=== PATIENT | female | born 1940 | race Caucasian/White ===

== ENCOUNTER → 2016-08-03 | Outpatient (REF) | payer OTHER ==
[~2016-08-03] MED LIST: /CIPR75TA; ACYC5OIN TOP; ALLE25CA OR; AMOX875T2 PO; CEFD300CAP PO; CIPR-250 PO; COLA100C2; COLA100C2 OR; ENAL5TAB PO; FERR32TA PO; GABA-282 PO; GABA-283 PO; GABA600T PO; INSUHUMDS SC; KETO-28 OR; LOVE1INJ SC; Lovenox; METF500T PO; MILKSUS PO; MIRALEX OR; NAPR500T2 PO; NEUR600T OR; NITR0.4S SL; NORCOTAB PO; NORV5TAB OR; OXYB10TA PO; OXYC-299 PO; PANT40TA2 PO; PARO20TA3 PO; PARO40TA87 PO; PERC5TAB8; PERC7.5T3 PO; PERCOCET PO; PRIL20CA OR; PRIL40CA OR; RISATAB3 PO; SENN-23 PO; SENN1TAB2 PO; TRAM50TA2 OR; TRAM50TA2 PO; TRAZ150T14 PO; VICO5TAB; VITA-130 PO; XARE15TA PO; XARE20TA PO; ZOFR8TAB PO; lovenox; trazodone PO
[2016-08-03 19:00] LABS: TOTAL PROTEIN 6.9 GM/DL (6.4-8.2)
[2016-08-03 19:25] LABS: VITAMIN B12 LEVEL 266 PG/ML (247-911)
[2016-08-04 12:28] LABS: ALBUMIN 4.42 GM/DL (3.29-5.55)
== END ==
LOC: M LAB REF 16:56
PROVIDERS: ATTEND Nurse Practitioner Adult Health
DX: D64.9 Anemia, unspecified (principal); D47.2 Monoclonal gammopathy; R41.3 Other amnesia; Z79.899 Other long term (current) drug therapy

== ENCOUNTER → 2016-08-25 | Outpatient (REF) | payer OTHER ==
[2016-08-25 14:19] LABS: IMMUNOGLOBULIN A 57.8 MG/DL (70-400)
[2016-08-27 00:06] LABS: FREE KAPPA LIGHT CHAINS SERUM 29.72 mg/L (3.30-19.40); FREE LAMBDA LIGHT CHAINS SERUM 35.46 mg/L (5.71-26.30); KAPPA/LAMBDA RATIO SERUM 0.84 (0.26-1.65)
== END ==
LOC: M LAB REF 13:33
PROVIDERS: ATTEND Internal Medicine Medical Oncology
DX: D47.2 Monoclonal gammopathy (principal)

== ENCOUNTER 2016-10-13 22:58 | Emergency (ER) | payer OTHER ==
[~2016-10-13] VITALS: Ht 167.6 cm; Wt 90.9 kg
[~2016-10-13 22:58] MED LIST changes: -METF500T PO; +METF500T13 PO; -NAPR500T2 PO; +NAPR500T3 PO; +OXYC-141 PO; -OXYC-299 PO; +PARO40TA3 PO; -PARO40TA87 PO; +PERC7.5T11 PO; -PERC7.5T3 PO; -TRAZ150T14 PO; +TRAZ1TAB14 PO; -VITA-130 PO; +VITA500T PO
[2016-10-13] MEDS ORDERED: OXYB10TA PO (23:20)
[2016-10-13 23:45] LABS: BASO % 0.5 % (0.0-1.0); EOS # 0.3 K/mm3 (0.0-0.50); EOS % 3.6 % (0.0-3.0); LARGE UNSTAINED CELL # 0.1 K/mm3 (0.0-0.4); LYMPH # 2.1 K/mm3 (1.5-4.5); LYMPH % 26.1 % (24.0-44.0); MEAN CORPUSCULAR HEMOGLOBIN 30.9 pg (27.0-33.0); MEAN CORPUSCULAR HGB CONC 33.9 g/dl (32.0-36.5); MEAN CORPUSCULAR VOLUME 91.3 fl (80.0-96.0); MONO # 0.5 K/mm3 (0.0-0.8); MONO % 6.1 % (0.0-5.0); NEUTROPHILS # 4.8 K/mm3 (1.8-7.7); NEUTROPHILS % 62.7 % (36.0-66.0); PLATELET COUNT, AUTOMATED 266 k/mm3 (150-450); RED CELL DISTRIBUTION WIDTH 12.7 % (11.5-14.5); WHITE BLOOD COUNT 7.6 K/mm3 (4.0-10.0)
[2016-10-13 23:51] LABS: INR 0.91
[2016-10-14 00:08] LABS: ANION GAP 5 MEQ/L (8-16); BLOOD UREA NITROGEN 22 MG/DL (7-18); CALCIUM LEVEL 9.6 MG/DL (8.8-10.2); CARBON DIOXIDE LEVEL 31 MEQ/L (21-32); CHLORIDE LEVEL 102 MEQ/L (98-107); CREATININE FOR GFR 1.28 MG/DL (0.55-1.02); FREE T4 1.22 NG/DL (0.76-1.46); GLOMERULAR FILTRATION RATE 43.4 (>39); GLUCOSE, FASTING 105 MG/DL (83-110); SODIUM LEVEL 138 MEQ/L (136-145)
--- NOTE | 2016-10-14 00:10 | REPUSA ---
CT of the cervical spine Clinical history: trauma. Technique: Multiple axial CT images were obtained through the cervical spine without administration o f contrast. Coronal and sagittal 3-D reconstructed images were also obtained. Comparison: None. Findings: The cervical vertebral bodies are in satisfactory positioning and alignment. No fractures or dislocat ions are demonstrated. The odontoid process is intact. Intervertebral disc spaces are moderately narr owed at C4/C5, C5/C6, C6/C7,, and C7/T1. There is a large disc bulge noted at C5/C6. This causes mode rate central canal stenosis measuring 8 mm in AP diameter, with moderate narrowing of the left neural foramen.. There is moderate narrowing of the right neural foramen at C7/T1 secondary to a disc osteo phyte complex. There is no evidence of facet subluxation. The cervical cranial junction is intact. Th e surrounding soft tissues are within normal limits. Impression: 1. No acute fracture or traumatic injury. 2. Multilevel degenerative disc disease and disc osteophyte complexes as described. 3. The disc bulge at C5/C6 results in moderate central canal stenosis and left neural foraminal narro wing. 4. Disc osteophyte complex at C7/T1 causes moderate right neural foraminal narrowing.
--- NOTE | 2016-10-14 00:10 | REPUSA ---
CT of the head Clinical history: trauma. Technique: Multiple axial CT images were obtained through the head without administration of contrast . Comparison: None. Findings: The ventricles and sulci are symmetric bilaterally. There is no evidence of acute hemorrhag e or infarct. There is no midline shift, mass effect, or extra-axial fluid collection. The osseous st ructures are unremarkable. The visualized paranasal sinuses and mastoid air cells are clear. Impression: Negative study.
--- NOTE | 2016-10-14 00:43 | REP ---
Clinical: Trauma. Technique: Frontal view of the pelvis. Findings: No acute fracture or dislocation. Symmetric age-related arthritic changes to the bilateral hip joints noted. Sacroiliac joints are intact and normal. Surrounding soft tissues are unremarkable. Impression: Degenerative changes to the bilateral hips. No acute fracture or dislocation. Signed by Richard Francisco MD 10/14/2016 12:34 A
[2016-10-14 01:33] VITALS: O2SAT 98
[2016-10-14 02:08] VITALS: BP 136/83
--- NOTE | 2016-10-14 12:17 | ECGEPIP ---
Stationary ECG Study [facility] - ED Test Date: 2016-10-14 Pat Name: MYKE CREWS Department: Room: - Gender: F Tableau Lead: torsten : 1940 Requested By: NATALIE Silva Order Number: [id number] Reading MD: Koko Peraza Measurements Intervals [place] Rate: 68 P: 27 ME: 174 QRS: -6 QRSD: 152 T: -2 QT: 421 QTc: 450 Interpretive Statements SINUS RHYTHM RIGHT BUNDLE BRANCH BLOCK, NEW COMPARED TO 01/22/16 Electronically Signed On 10-14-2016 12:17:16 EDT by Koko Peraza
[2016-11-28] MEDS ORDERED: CHLO125TA PO (10:24)
[2016-11-28] MEDS ORDERED: POTA1TAB23 PO (10:24)
[2016-11-28] MEDS ORDERED: GABA600T PO (10:24)
[2016-11-28] MEDS ORDERED: PANT40TA2 PO (10:24)
== END 2016-10-14 02:09 | disposition home or self-care (01) ==
LOC: M ED 22:58 → EDBD 22:58 → M ED 10-14 00:57
DX: S01.01XA Laceration without foreign body of scalp, initial encounter (principal); W19.XXXA Unspecified fall, initial encounter; Y92.010 Kitchen of single-family (private) house as the place of occurrence of the external cause; Y93.9 Activity, unspecified; Y99.8 Other external cause status; M50.222 Other cervical disc displacement at C5-C6 level; E11.9 Type 2 diabetes mellitus without complications; M48.00 Spinal stenosis, site unspecified; N31.9 Neuromuscular dysfunction of bladder, unspecified; G62.9 Polyneuropathy, unspecified; M79.7 Fibromyalgia; Z89.519 Acquired absence of unspecified leg below knee; Z79.899 Other long term (current) drug therapy; Z88.1 Allergy status to other antibiotic agents; Z88.5 Allergy status to narcotic agent; Z88.8 Allergy status to other drugs, medicaments and biological substances; Z91.040 Latex allergy status; Z91.041 Radiographic dye allergy status; Z88.4 Allergy status to anesthetic agent

== ENCOUNTER 2016-12-08 06:22 | Day surgery (SDC) | payer OTHER ==
[~2016-12-08] VITALS: Ht 165.1 cm; Wt 89.4 kg
[~2016-12-08 06:22] MED LIST changes: +CHLO125TA PO; +POTA1TAB23 PO
[2016-12-08] MEDS ORDERED: LR 1,000 ML IV SCH (06:30)
[2016-12-08] MEDS ORDERED: ACETYLCHOLINE OPHTH SOLN 1% 2ML (MIOCHOL-E) As Ordered ONE (06:38)
[2016-12-08] MEDS ORDERED: POVIDONE-IODINE 5% OPHTH PREP SOL 30ML As Ordered ONE (06:38)
[2016-12-08] MEDS ORDERED: LIDOCAINE 4% INJ 5 ML AMP As Ordered ONE (06:39)
[2016-12-08] MEDS ORDERED: BALANCED SALT IRRIGATION SOLUTION 500ML BAG (FOR OR EYE MACHINE) As Ordered ONE (06:39)
[2016-12-08] MEDS ORDERED: LIDOCAINE 0.75%/EPINEPHRINE 0.025% IN BSS 1ML SYR INTRACAMERAL (OR ONLY) As Ordered ONE (06:39)
[2016-12-08] MEDS ORDERED: CEFUROXIME 1MG/0.1ML INTRACAMERAL INJ As Ordered ONE (06:39)
[2016-12-08] MEDS ORDERED: DUOVISC (0.50ML VISCOAT/0.55ML PROVISC) OPHTH KIT As Ordered ONE (06:40)
[2016-12-08] MEDS ORDERED: VITA100072 PO (06:53)
[2016-12-08] MEDS ORDERED: OFLOXACIN 0.3 % (OCUFLOX) OPTH SOL 5ML XX ONE (07:00)
[2016-12-08] MEDS ORDERED: PHENYLEPHRINE 2.5% OPHTH SOL 2ML XX ONE (07:00)
[2016-12-08] MEDS ORDERED: TROPICAMIDE 1% OPHTH SOLN 2ML XX ONE (07:00)
[2016-12-08] MEDS ORDERED: PROPARACAINE 0.5% OPHTH SOL 15ML XX ONE (07:00)
[2016-12-08] MEDS ORDERED: fentaNYL 100 MCG/2 ML INJECTION (J3010) As Ordered ONE (07:17)
[2016-12-08] MEDS ORDERED: MIDAZOLAM INJ 2 MG/2 ML VIAL (J2250) As Ordered ONE (07:17)
[2016-12-08 08:50] VITALS: BP 122/64
--- NOTE | 2016-12-11 08:41 | RO ---
DATE OF PROCEDURE: 12/08/2016 PREOPERATIVE DIAGNOSIS: Visually significant nuclear sclerotic cataract left eye. POSTOPERATIVE DIAGNOSIS: Visually significant nuclear sclerotic cataract left eye. PROCEDURE: Cataract extraction with use of phacoemulsification, and placement of intraocular lens, 23.5D , left eye. 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 COMPLICATIONS: None. POSTOPERATIVE CONDITION: Stable. INDICATION FOR SURGERY: Blurred vision left eye affecting patient's activities of daily living. DESCRIPTION OF PROCEDURE: The patient was seen in the preoperative area and properly identified. The correct operative eye was identified and marked. Attention was turned to that eye. The patient received topical antibiotics in the preoperative area. The patient then received topical dilating drops consisting of Tropicamide and Phenylephrine. The patient was then transferred to the operating room. The correct side was re-identified. The patient received topical anesthetics and antibiotics on the surface of the eye. The eye was prepped and draped in a sterile fashion. The upper and lower eyelids were isolated with Tegaderm tape, and the lids were held open with an adjustable speculum. Using a sideport blade, a paracentesis incision was made. Intraocular preservative-free lidocaine was then injected into the anterior chamber. Viscoelastic was then injected into the anterior chamber through the paracentesis. Using a 2.6 mm sharp-tipped keratome, the anterior chamber was entered via a temporal clear corneal incision. A continuous curvilinear capsulorrhexis was created with the aid of a 26g cystotome and utrata forceps. Hydrodissection was performed with balanced salt solution (BSS) on a blunt cannula until the nucleus was freely mobile. The crystalline lens was phacoemulsified and aspirated. Additional cohesive viscoelastic was placed into the capsular bag to deepen it. A 23.5 lens D was placed into the capsular bag and confirmed by visualizing the continuous curvilinear capsulorrhexis. Additional irrigation and aspiration was used to remove cortical material and remaining viscoelastic. The clear corneal incision was hydrated with BSS on a blunt cannula. The lens was well positioned. The incisions were then tested for leaks and found to be negative. The eye was then palpated for appropriate pressure and adjusted accordingly with BSS. The eyelid speculum was carefully removed. A shield was placed over the eye. The patient tolerated the procedure well and was discharged to the recovery unit in a stable condition. [facility]ITAL[facility]ad[facility]
== END 2016-12-08 09:04 | disposition home or self-care (01) ==
LOC: M SDC 06:22
PROVIDERS: ATTEND Ophthalmology
DX: H25.12 Age-related nuclear cataract, left eye (principal); E11.9 Type 2 diabetes mellitus without complications; I10 Essential (primary) hypertension; K21.9 Gastro-esophageal reflux disease without esophagitis; Z91.040 Latex allergy status; Z88.5 Allergy status to narcotic agent; Z91.041 Radiographic dye allergy status; Z79.899 Other long term (current) drug therapy; F41.9 Anxiety disorder, unspecified; M41.9 Scoliosis, unspecified
CPT/HCPCS: 66984; J2250; J3010; V2632

== ENCOUNTER 2016-12-22 10:26 | Day surgery (SDC) | payer OTHER ==
[~2016-12-22 10:26] MED LIST changes: +ACETYLCHOLINE OPHTH SOLN 1% 2ML (MIOCHOL-E) As Ordered ONE; +BALANCED SALT IRRIGATION SOLUTION 500ML BAG (FOR OR EYE MACHINE) As Ordered ONE; +CEFUROXIME 1MG/0.1ML INTRACAMERAL INJ As Ordered ONE; +DUOVISC (0.50ML VISCOAT/0.55ML PROVISC) OPHTH KIT As Ordered ONE; +LIDOCAINE 0.75%/EPINEPHRINE 0.025% IN BSS 1ML SYR INTRACAMERAL (OR ONLY) As Ordered ONE; +OFLOXACIN 0.3 % (OCUFLOX) OPTH SOL 5ML OD ONE; +PHENYLEPHRINE 2.5% OPHTH SOL 2ML OD ONE; +POVIDONE-IODINE 5% OPHTH PREP SOL 30ML As Ordered ONE; +PROPARACAINE 0.5% OPHTH SOL 15ML OD ONE; +TROPICAMIDE 1% OPHTH SOLN 2ML OD ONE; +VITA100072 PO
[2016-12-22] MEDS ORDERED: LR 1,000 ML IV SCH (10:45)
[2016-12-22] MEDS ORDERED: MIDAZOLAM INJ 2 MG/2 ML VIAL (J2250) As Ordered ONE (11:49)
[2016-12-22] MEDS ORDERED: fentaNYL 100 MCG/2 ML INJECTION (J3010) As Ordered ONE (12:12)
[2016-12-22 12:45] VITALS: BP 140/67
--- NOTE | 2016-12-23 15:29 | RO ---
DATE OF PROCEDURE: 12/22/2016 PREOPERATIVE DIAGNOSIS: Visually significant nuclear sclerotic cataract right eye. POSTOPERATIVE DIAGNOSIS: Visually significant nuclear sclerotic cataract right eye. PROCEDURE: Cataract extraction with use of phacoemulsification, and placement of intraocular lens, AU00T0, 22.5 D, right eye. 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 COMPLICATIONS: None. POSTOPERATIVE CONDITION: Stable. INDICATION FOR SURGERY: Blurred vision right eye affecting patient's activities of daily living. DESCRIPTION OF PROCEDURE: The patient was seen in the preoperative area and properly identified. The correct operative eye was identified and marked. Attention was turned to that eye. The patient received topical antibiotics in the preoperative area. The patient then received topical dilating drops consisting of Tropicamide and Phenylephrine. The patient was then transferred to the operating room. The correct side was re-identified. The patient received topical anesthetics and antibiotics on the surface of the eye. The eye was prepped and draped in a sterile fashion. The upper and lower eyelids were isolated with Tegaderm tape, and the lids were held open with an adjustable speculum. Using a sideport blade, a paracentesis incision was made. Intraocular preservative-free lidocaine was then injected into the anterior chamber. Viscoelastic was then injected into the anterior chamber through the paracentesis. Using a 2.65 mm sharp-tipped keratome, the anterior chamber was entered via a temporal clear corneal incision. A continuous curvilinear capsulorrhexis was created with the aid of a 26g cystotome and utrata forceps. Hydrodissection was performed with balanced salt solution (BSS) on a blunt cannula until the nucleus was freely mobile. The crystalline lens was phacoemulsified and aspirated. Additional cohesive viscoelastic was placed into the capsular bag to deepen it. An AU00T0, 22.5 D was placed into the capsular bag and confirmed by visualizing the continuous curvilinear capsulorrhexis. Additional irrigation and aspiration was used to remove cortical material and remaining viscoelastic. The clear corneal incision was hydrated with BSS on a blunt cannula. The lens was well positioned. The incisions were then tested for leaks and found to be negative. The eye was then palpated for appropriate pressure and adjusted accordingly with BSS. The eyelid speculum was carefully removed. A shield was placed over the eye. The patient tolerated the procedure well and was discharged to the recovery unit in a stable condition. CLEM
== END 2016-12-22 13:05 | disposition home or self-care (01) ==
LOC: M SDC 10:26
PROVIDERS: ATTEND Ophthalmology
DX: H25.11 Age-related nuclear cataract, right eye (principal); E11.22 Type 2 diabetes mellitus with diabetic chronic kidney disease; I13.0 Hypertensive heart and chronic kidney disease with heart failure and stage 1 through stage 4 chronic kidney disease, or unspecified chronic kidney disease; N18.3 Chronic kidney disease, stage 3 (moderate); I50.32 Chronic diastolic (congestive) heart failure; I45.10 Unspecified right bundle-branch block; G47.33 Obstructive sleep apnea (adult) (pediatric); Z86.711 Personal history of pulmonary embolism; M79.7 Fibromyalgia; E78.2 Mixed hyperlipidemia; E11.319 Type 2 diabetes mellitus with unspecified diabetic retinopathy without macular edema; M48.00 Spinal stenosis, site unspecified; E53.8 Deficiency of other specified B group vitamins; R42 Dizziness and giddiness; Z91.81 History of falling; K21.9 Gastro-esophageal reflux disease without esophagitis; D47.2 Monoclonal gammopathy; Z86.14 Personal history of Methicillin resistant Staphylococcus aureus infection; M41.9 Scoliosis, unspecified; F41.9 Anxiety disorder, unspecified; N31.9 Neuromuscular dysfunction of bladder, unspecified; R32 Unspecified urinary incontinence; Z96.0 Presence of urogenital implants; Z87.440 Personal history of urinary (tract) infections; Z91.041 Radiographic dye allergy status; Z91.040 Latex allergy status; Z88.8 Allergy status to other drugs, medicaments and biological substances; Z88.5 Allergy status to narcotic agent; Z88.4 Allergy status to anesthetic agent; Z79.899 Other long term (current) drug therapy
CPT/HCPCS: 66984; J2250; J3010; V2632

== ENCOUNTER → 2017-01-16 | Outpatient (REF) | payer OTHER ==
[~2017-01-16] MED LIST changes: -ACETYLCHOLINE OPHTH SOLN 1% 2ML (MIOCHOL-E) As Ordered ONE; -BALANCED SALT IRRIGATION SOLUTION 500ML BAG (FOR OR EYE MACHINE) As Ordered ONE; -CEFUROXIME 1MG/0.1ML INTRACAMERAL INJ As Ordered ONE; -DUOVISC (0.50ML VISCOAT/0.55ML PROVISC) OPHTH KIT As Ordered ONE; -LIDOCAINE 0.75%/EPINEPHRINE 0.025% IN BSS 1ML SYR INTRACAMERAL (OR ONLY) As Ordered ONE; -OFLOXACIN 0.3 % (OCUFLOX) OPTH SOL 5ML OD ONE; -PHENYLEPHRINE 2.5% OPHTH SOL 2ML OD ONE; -POVIDONE-IODINE 5% OPHTH PREP SOL 30ML As Ordered ONE; -PROPARACAINE 0.5% OPHTH SOL 15ML OD ONE; -TROPICAMIDE 1% OPHTH SOLN 2ML OD ONE
== END ==
LOC: M LAB REF 12:58
PROVIDERS: ATTEND Nurse Practitioner Adult Health
DX: N31.9 Neuromuscular dysfunction of bladder, unspecified (principal); N39.41 Urge incontinence

== ENCOUNTER 2017-04-27 12:54 | Emergency (ER) | payer MEDICARE, OTHER ==
[2017-04-27] MEDS: DERMABOND TOPICAL SKIN ADHESIVE TOP (14:00)
== END 2017-04-27 14:35 | disposition home or self-care (01) ==
LOC: M ED 12:54
DX: S01.81XA Laceration without foreign body of other part of head, initial encounter (principal); S09.90XA Unspecified injury of head, initial encounter; W01.198A Fall on same level from slipping, tripping and stumbling with subsequent striking against other object, initial encounter; Y92.230 Patient room in hospital as the place of occurrence of the external cause; Y93.89 Activity, other specified; Y99.8 Other external cause status; I10 Essential (primary) hypertension; E11.9 Type 2 diabetes mellitus without complications; E78.00 Pure hypercholesterolemia, unspecified; D47.2 Monoclonal gammopathy; G62.9 Polyneuropathy, unspecified; M48.00 Spinal stenosis, site unspecified; F41.9 Anxiety disorder, unspecified; Z79.899 Other long term (current) drug therapy; Z91.041 Radiographic dye allergy status; Z88.8 Allergy status to other drugs, medicaments and biological substances; Z88.5 Allergy status to narcotic agent; Z91.040 Latex allergy status
CPT/HCPCS: 99284

== ENCOUNTER → 2017-05-11 | Outpatient (REF) | payer MEDICARE ==
[2017-05-11 18:21] LABS: PHOSPHORUS LEVEL 2.9 MG/DL (2.5-4.9); URIC ACID 7.7 MG/DL (2.6-6.0)
[2017-05-11 18:29] LABS: PTH INTACT 53.7 PG/ML (14.0-72.0)
== END ==
LOC: M LAB REF 16:43
DX: I13.0 Hypertensive heart and chronic kidney disease with heart failure and stage 1 through stage 4 chronic kidney disease, or unspecified chronic kidney disease (principal)
CPT/HCPCS: 84100

== ENCOUNTER → 2017-08-16 | Outpatient (REF) | payer OTHER ==
[2017-08-16 16:12] LABS: URINE TOTAL PROTEIN 13.1 MG/DL (0-12)
[2017-08-16 16:24] LABS: IMMUNOGLOBULIN G 843 MG/DL (681-1648); IMMUNOGLOBULIN M 220 MG/DL (40-230)
[2017-08-17 11:41] LABS: ALBUMIN 4.32 GM/DL (3.29-5.55); ALBUMIN % 61.7 % (55.8-66.1); ALPHA-1-GLOBULIN % 4.3 % (2.9-4.9); ALPHA-2-GLOBULINS 0.79 GM/DL (0.42-0.99); ALPHA-2-GLOBULINS % 11.3 % (7.1-11.8); BETA-1-GLOBULINS 0.41 GM/DL (0.28-0.60); BETA-1-GLOBULINS % 5.8 % (4.7-7.2); BETA-2-GLOBULINS 0.28 GM/DL (0.19-0.55); GAMMA GLOBULIN % 12.9 % (11.1-18.8)
[2017-08-17 14:39] LABS: UPEP INTERPRETATION NO M-SPIKE NOTED; URINE VOLUME RANDOM ML
[2017-08-19 00:07] LABS: FREE KAPPA LIGHT CHAINS SERUM 22.9 mg/L (3.3-19.4); FREE LAMBDA LIGHT CHAINS SERUM 28.4 mg/L (5.7-26.3); KAPPA/LAMBDA RATIO SERUM 0.81 (0.26-1.65)
== END ==
LOC: M LAB REF 14:44
DX: D47.2 Monoclonal gammopathy (principal)
CPT/HCPCS: 84165

== ENCOUNTER 2017-12-31 09:24 | Emergency (ER) | payer MEDICARE, MEDICAID, OTHER ==
[2017-12-31 09:52] LABS: BASO # 0.1 10^3/uL (0.0-0.2); BASO % 0.9 % (0.0-1.0); EOS # 0.2 10^3/uL (0.0-0.50); EOS % 1.9 % (0.0-3.0); HEMATOCRIT 40.2 % (36.0-47.0); HEMOGLOBIN 13.3 g/dl (12.0-15.5); IMMATURE GRANULOCYTE % 0.9 % (0-3.0); LYMPH # 1.9 10^3/uL (1.5-4.5); LYMPH % 21.1 % (24.0-44.0); MEAN CORPUSCULAR HGB CONC 33.1 g/dl (32.0-36.5); MEAN CORPUSCULAR VOLUME 93.7 fl (80.0-96.0); MONO # 0.7 10^3/uL (0.0-0.8); MONO % 7.7 % (0.0-5.0); NEUTROPHILS # 6.2 10^3/uL (1.8-7.7); NEUTROPHILS % 67.5 % (36.0-66.0); PLATELET COUNT, AUTOMATED 311 10^3/uL (150-450); RED BLOOD COUNT 4.29 10^6/uL (4.00-5.40); RED CELL DISTRIBUTION WIDTH 14.1 % (11.5-14.5); WHITE BLOOD COUNT 9.2 10^3/uL (4.0-10.0)
[2017-12-31 10:14] LABS: ERYTHROCYTE SEDIMENTATION RATE 24 mm/hr (0-30)
[2017-12-31 10:22] LABS: ANION GAP 7 MEQ/L (8-16); BLOOD UREA NITROGEN 16 MG/DL (7-18); C REACTIVE PROTEIN QUANTITATIV 1.08 MG/DL (0.00-0.30); CALCIUM LEVEL 9.3 MG/DL (8.8-10.2); CARBON DIOXIDE LEVEL 29 MEQ/L (21-32); CHLORIDE LEVEL 106 MEQ/L (98-107); CREATININE FOR GFR 1.03 MG/DL (0.55-1.30); GLOMERULAR FILTRATION RATE 55.6 (>39); GLUCOSE, FASTING 142 MG/DL (70-100); POTASSIUM SERUM 4.2 MEQ/L (3.5-5.1); SODIUM LEVEL 142 MEQ/L (136-145)
[2017-12-31] MEDS: CEPHALEXIN 500 MG CAP PO (11:20)
== END 2017-12-31 12:17 | disposition home or self-care (01) ==
LOC: M ED 09:24
DX: R60.0 Localized edema (principal); D50.9 Iron deficiency anemia, unspecified; E11.9 Type 2 diabetes mellitus without complications; I10 Essential (primary) hypertension; Z86.711 Personal history of pulmonary embolism; Z89.511 Acquired absence of right leg below knee; Z91.041 Radiographic dye allergy status; Z88.8 Allergy status to other drugs, medicaments and biological substances; Z88.5 Allergy status to narcotic agent; Z79.899 Other long term (current) drug therapy; Z79.891 Long term (current) use of opiate analgesic
CPT/HCPCS: 93971

== ENCOUNTER → 2018-01-04 | Outpatient (REF) | payer MEDICARE, MEDICAID | DX: N32.81 Overactive bladder (principal); Z79.899 Other long term (current) drug therapy | CPT/HCPCS: 87086 ==

== ENCOUNTER → 2018-01-31 | Outpatient (CLI) | payer MEDICARE, MEDICAID | LOC: M PT 12:57 | DX: Z89.511 Acquired absence of right leg below knee (principal) | CPT/HCPCS: 97162 ==

== ENCOUNTER 2018-02-19 17:20 | Inpatient (IN) | payer MEDICARE, MEDICAID ==
[2018-02-19 16:01] LABS: BASO # 0.1 10^3/uL (0.0-0.2); BASO % 0.5 % (0.0-1.0); EOS # 0.5 10^3/uL (0.0-0.50); EOS % 3.2 % (0.0-3.0); HEMATOCRIT 41.6 % (36.0-47.0); HEMOGLOBIN 13.5 g/dl (12.0-15.5); IMMATURE GRANULOCYTE % 0.5 % (0-3.0); LYMPH % 6.9 % (24.0-44.0); MEAN CORPUSCULAR HEMOGLOBIN 30.7 pg (27.0-33.0); MEAN CORPUSCULAR HGB CONC 32.5 g/dl (32.0-36.5); MEAN CORPUSCULAR VOLUME 94.5 fl (80.0-96.0); MONO # 0.2 10^3/uL (0.0-0.8); NEUTROPHILS % 87.9 % (36.0-66.0); PLATELET COUNT, AUTOMATED 279 10^3/uL (150-450); RED CELL DISTRIBUTION WIDTH 13.9 % (11.5-14.5); WHITE BLOOD COUNT 14.7 10^3/uL (4.0-10.0)
[2018-02-19 16:18] LABS: ALBUMIN 4.2 GM/DL (3.2-5.2); ALBUMIN/GLOBULIN RATIO 1.45 (1.00-1.93); ALKALINE PHOSPHATASE 90 U/L (45-117); ALT/SGPT 24 U/L (12-78); ANION GAP 7 MEQ/L (8-16); AST/SGOT 18 U/L (7-37); BILIRUBIN,DIRECT < 0.1 MG/DL (0.0-0.2); BILIRUBIN,TOTAL 0.4 MG/DL (0.2-1.0); BLOOD UREA NITROGEN 17 MG/DL (7-18); CALCIUM LEVEL 10.1 MG/DL (8.8-10.2); CARBON DIOXIDE LEVEL 30 MEQ/L (21-32); CHLORIDE LEVEL 103 MEQ/L (98-107); CREATININE FOR GFR 0.99 MG/DL (0.55-1.30); GLOMERULAR FILTRATION RATE 58.2 (>39); GLUCOSE, FASTING 79 MG/DL (70-100); LIPASE 146 U/L (73-393); POTASSIUM SERUM 3.8 MEQ/L (3.5-5.1); SODIUM LEVEL 140 MEQ/L (136-145); TOTAL PROTEIN 7.1 GM/DL (6.4-8.2)
[2018-02-19 17:04] LABS: KETONE, URINE AUTO RFX NEGATIVE (NEGATIVE); MUCUS, URINE RFX SMALL (NEGATIVE); NITRITE, URINE AUTO RFX NEGATIVE (NEGATIVE); RBC, URINE AUTO RFX 3 /HPF (0-3); SPECIFIC GRAVITY UR AUTO RFX 1.011 (1.002-1.035); SQUAM EPITHELIAL CELL UR AURFX 0 /HPF (0-6)
[2018-02-19 17:17] LABS: LEUKOCYTE ESTERASE UR AUTO RFX 1+ (NEGATIVE); WBC, URINE AUTO RFX 13 /HPF (0-3)
[2018-02-19] MEDS: ACETAMINOPHEN TAB 650MG DOSE (2X325MG) PO (17:38)
[2018-02-19] MEDS: ONDANSETRON 4MG/2ML VIAL (J2405) IV (17:38)
[2018-02-19] MEDS: NS 1,000 ML IV ×2 (17:38→23:53)
[2018-02-19] MEDS: MORPHINE 2 MG/ML 1ML SYRINGE (J2270) IV (17:38)
[2018-02-19] MEDS: cefTRIAXone SOD 1 GM in D5W MINI-BAG PLUS 50 ML IV (18:27)
[2018-02-19 19:03] LABS: INFLUENZA A AMPLIFICATION NEGATIVE (NEGATIVE); INFLUENZA B AMPLIFICATION NEGATIVE (NEGATIVE)
[2018-02-19] MEDS: IBUPROFEN 800 MG TAB PO (20:40)
[2018-02-19] MEDS ORDERED: BISACODYL 5 MG TAB PO (23:00)
[2018-02-19] MEDS: GABAPENTIN 300 MG CAP PO (23:52)
[2018-02-19] MEDS: traMADol 50 MG TAB PO (23:53)
[2018-02-20 07:36] LABS: BASO # 0.1 10^3/uL (0.0-0.2); BASO % 0.7 % (0.0-1.0); EOS # 0.3 10^3/uL (0.0-0.50); EOS % 2.8 % (0.0-3.0); HEMOGLOBIN 11.8 g/dl (12.0-15.5); IMMATURE GRANULOCYTE % 0.4 % (0-3.0); LYMPH # 0.9 10^3/uL (1.5-4.5); LYMPH % 9.4 % (24.0-44.0); MEAN CORPUSCULAR HEMOGLOBIN 30.8 pg (27.0-33.0); MEAN CORPUSCULAR HGB CONC 32.8 g/dl (32.0-36.5); MONO # 0.7 10^3/uL (0.0-0.8); NEUTROPHILS # 7.2 10^3/uL (1.8-7.7); NEUTROPHILS % 78.7 % (36.0-66.0); PLATELET COUNT, AUTOMATED 218 10^3/uL (150-450); RED BLOOD COUNT 3.83 10^6/uL (4.00-5.40); RED CELL DISTRIBUTION WIDTH 13.9 % (11.5-14.5); WHITE BLOOD COUNT 9.1 10^3/uL (4.0-10.0)
[2018-02-20 07:56] LABS: ANION GAP 5 MEQ/L (8-16); BLOOD UREA NITROGEN 16 MG/DL (7-18); CALCIUM LEVEL 9.1 MG/DL (8.8-10.2); CARBON DIOXIDE LEVEL 29 MEQ/L (21-32); CHLORIDE LEVEL 106 MEQ/L (98-107); CREATININE FOR GFR 1.03 MG/DL (0.55-1.30); GLOMERULAR FILTRATION RATE 55.6 (>39); GLUCOSE, FASTING 110 MG/DL (70-100); POTASSIUM SERUM 3.8 MEQ/L (3.5-5.1); SODIUM LEVEL 140 MEQ/L (136-145)
[2018-02-20] MEDS: cefTRIAXone SOD 1 GM in D5W MINI-BAG PLUS 50 ML IV (09:00)
[2018-02-20] MEDS: NS 1,000 ML IV ×3 (09:00→23:59)
[2018-02-20] MEDS: ALLOPURINOL 100 MG TAB PO (09:01)
[2018-02-20] MEDS: HEPARIN SOD (PORCINE) 5000 UNITS/ML VIAL SC ×2 (09:01→20:08)
[2018-02-20] MEDS: CYANOCOBALAMIN 500 MCG TAB PO (09:01)
[2018-02-20] MEDS: GABAPENTIN 300 MG CAP PO ×4 (09:01→20:08)
[2018-02-20] MEDS: ASCORBIC ACID 500 MG TAB PO (09:02)
[2018-02-20] MEDS: traMADol 50 MG TAB PO ×4 (09:02→20:09)
[2018-02-20] MEDS: PANTOPRAZOLE 40MG TAB (PROTONIX) PO (09:02)
[2018-02-20] MEDS: METOPROLOL SUCC (TopROL XL) 50MG **XL** TAB PO (09:02)
[2018-02-20] MEDS: ACETAMINOPHEN TAB 650MG DOSE (2X325MG) PO ×2 (09:03→14:53)
[2018-02-20] MEDS ORDERED: MOM 30ML SUSPENSION UDC PO (15:45)
[2018-02-20] MEDS ORDERED: oxyCODONE 5MG TAB PO (15:45)
[2018-02-20] MEDS: ONDANSETRON 4MG/2ML VIAL (J2405) IV ×2 (17:12→23:43)
[2018-02-20] MEDS: SENOKOT S TAB PO (20:08)
[2018-02-21] MEDS: ONDANSETRON 4MG/2ML VIAL (J2405) IV ×3 (05:46→18:12)
[2018-02-21] MEDS: oxyCODONE 5MG TAB PO (05:58)
[2018-02-21 08:26] LABS: HEMATOCRIT 36.6 % (36.0-47.0); HEMOGLOBIN 12.2 g/dl (12.0-15.5); MEAN CORPUSCULAR HEMOGLOBIN 31.3 pg (27.0-33.0); MEAN CORPUSCULAR HGB CONC 33.3 g/dl (32.0-36.5); MEAN CORPUSCULAR VOLUME 93.8 fl (80.0-96.0); PLATELET COUNT, AUTOMATED 218 10^3/uL (150-450); RED CELL DISTRIBUTION WIDTH 13.6 % (11.5-14.5); WHITE BLOOD COUNT 7.5 10^3/uL (4.0-10.0)
[2018-02-21 08:48] LABS: ANION GAP 6 MEQ/L (8-16); BLOOD UREA NITROGEN 9 MG/DL (7-18); CALCIUM LEVEL 9.1 MG/DL (8.8-10.2); CARBON DIOXIDE LEVEL 29 MEQ/L (21-32); CHLORIDE LEVEL 105 MEQ/L (98-107); CREATININE FOR GFR 0.74 MG/DL (0.55-1.30); GLOMERULAR FILTRATION RATE > 60.0 (>39); GLUCOSE, FASTING 119 MG/DL (70-100); POTASSIUM SERUM 4.1 MEQ/L (3.5-5.1); SODIUM LEVEL 140 MEQ/L (136-145)
[2018-02-21] MEDS: GABAPENTIN 300 MG CAP PO ×4 (09:43→20:57)
[2018-02-21] MEDS: HEPARIN SOD (PORCINE) 5000 UNITS/ML VIAL SC ×2 (09:43→20:59)
[2018-02-21] MEDS: PANTOPRAZOLE 40MG TAB (PROTONIX) PO ×2 (09:44→20:58)
[2018-02-21] MEDS: METOPROLOL SUCC (TopROL XL) 50MG **XL** TAB PO (09:44)
[2018-02-21] MEDS: CYANOCOBALAMIN 500 MCG TAB PO (09:44)
[2018-02-21] MEDS: ALLOPURINOL 100 MG TAB PO (09:44)
[2018-02-21] MEDS: ASCORBIC ACID 500 MG TAB PO (09:44)
[2018-02-21] MEDS: cefTRIAXone SOD 1 GM in D5W MINI-BAG PLUS 50 ML IV (09:45)
[2018-02-21] MEDS: traMADol 50 MG TAB PO ×4 (09:45→20:58)
[2018-02-21] MEDS: SENOKOT S TAB PO ×2 (09:47→22:11)
[2018-02-21] MEDS ORDERED: PILL CRUSHER/CUTTER 1 EACH XX (13:15)
[2018-02-21] MEDS: SUCRALFATE 1 GM TAB PO ×2 (14:14→18:00)
[2018-02-21] MEDS: NS 1,000 ML IV (14:16)
[2018-02-21 14:26] LABS: BEDSIDE GLUCOSE 119 MG/DL (83-110)
[2018-02-21 17:49] LABS: TROPONIN I < 0.02 NG/ML (< 0.10)
[2018-02-21] MEDS: CitaloPRAM (CeleXA) 10 MG TABLET PO (20:57)
[2018-02-21] MEDS: traZODone 50 MG TAB PO (20:57)
[2018-02-21 22:38] LABS: TROPONIN I < 0.02 NG/ML (< 0.10)
[2018-02-22] MEDS: SUCRALFATE 1 GM TAB PO ×4 (00:22→17:09)
[2018-02-22] MEDS: ACETAMINOPHEN TAB 650MG DOSE (2X325MG) PO ×3 (00:22→18:19)
[2018-02-22] MEDS: oxyCODONE 5MG TAB PO (01:03)
[2018-02-22 06:22] LABS: HEMATOCRIT 34.6 % (36.0-47.0); HEMOGLOBIN 11.6 g/dl (12.0-15.5); MEAN CORPUSCULAR HEMOGLOBIN 30.9 pg (27.0-33.0); MEAN CORPUSCULAR HGB CONC 33.5 g/dl (32.0-36.5); PLATELET COUNT, AUTOMATED 224 10^3/uL (150-450); RED BLOOD COUNT 3.76 10^6/uL (4.00-5.40); RED CELL DISTRIBUTION WIDTH 13.6 % (11.5-14.5); WHITE BLOOD COUNT 9.1 10^3/uL (4.0-10.0)
[2018-02-22 06:50] LABS: BLOOD UREA NITROGEN 11 MG/DL (7-18); CREATININE FOR GFR 0.78 MG/DL (0.55-1.30); GLUCOSE, FASTING 94 MG/DL (70-100)
[2018-02-22 06:51] LABS: ANION GAP 7 MEQ/L (8-16); CALCIUM LEVEL 9.3 MG/DL (8.8-10.2); CARBON DIOXIDE LEVEL 30 MEQ/L (21-32); CHLORIDE LEVEL 103 MEQ/L (98-107); GLOMERULAR FILTRATION RATE > 60.0 (>39); POTASSIUM SERUM 3.2 MEQ/L (3.5-5.1); SODIUM LEVEL 140 MEQ/L (136-145)
[2018-02-22] MEDS: ONDANSETRON 4MG/2ML VIAL (J2405) IV (09:14)
[2018-02-22] MEDS: cefTRIAXone SOD 1 GM in D5W MINI-BAG PLUS 50 ML IV (09:14)
[2018-02-22] MEDS: HEPARIN SOD (PORCINE) 5000 UNITS/ML VIAL SC ×2 (09:14→21:24)
[2018-02-22] MEDS: ALLOPURINOL 100 MG TAB PO (09:15)
[2018-02-22] MEDS: traMADol 50 MG TAB PO ×4 (09:15→21:23)
[2018-02-22] MEDS: ASCORBIC ACID 500 MG TAB PO (09:15)
[2018-02-22] MEDS: CYANOCOBALAMIN 500 MCG TAB PO (09:15)
[2018-02-22] MEDS: GABAPENTIN 300 MG CAP PO ×4 (09:15→21:23)
[2018-02-22] MEDS: PANTOPRAZOLE 40MG TAB (PROTONIX) PO (09:15)
[2018-02-22] MEDS: METOPROLOL SUCC (TopROL XL) 50MG **XL** TAB PO (09:15)
[2018-02-22] MEDS: METOCLOPRAMIDE INJ 10MG/2ML VIAL (J2765) IV (13:06)
[2018-02-22] MEDS: POTASSIUM CHLORIDE 10 MEQ SR TABLET PO (13:07)
[2018-02-22 15:57] LABS: LIPASE 83 U/L (73-393)
[2018-02-22] MEDS: PANTOPRAZOLE 40MG INJ (PROTONIX) (C9113) IV (21:23)
[2018-02-22] MEDS: traZODone 50 MG TAB PO (21:23)
[2018-02-22] MEDS: CitaloPRAM (CeleXA) 10 MG TABLET PO (21:24)
[2018-02-23] MEDS: SUCRALFATE 1 GM TAB PO ×4 (00:27→17:17)
[2018-02-23 06:42] LABS: HEMATOCRIT 35.9 % (36.0-47.0); HEMOGLOBIN 11.8 g/dl (12.0-15.5); MEAN CORPUSCULAR HEMOGLOBIN 30.1 pg (27.0-33.0); MEAN CORPUSCULAR HGB CONC 32.9 g/dl (32.0-36.5); MEAN CORPUSCULAR VOLUME 91.6 fl (80.0-96.0); PLATELET COUNT, AUTOMATED 251 10^3/uL (150-450); RED BLOOD COUNT 3.92 10^6/uL (4.00-5.40); RED CELL DISTRIBUTION WIDTH 13.4 % (11.5-14.5)
[2018-02-23 07:06] LABS: ANION GAP 9 MEQ/L (8-16); BLOOD UREA NITROGEN 15 MG/DL (7-18); CALCIUM LEVEL 9.2 MG/DL (8.8-10.2); CARBON DIOXIDE LEVEL 30 MEQ/L (21-32); CHLORIDE LEVEL 101 MEQ/L (98-107); CREATININE FOR GFR 0.83 MG/DL (0.55-1.30); GLOMERULAR FILTRATION RATE > 60.0 (>39); GLUCOSE, FASTING 88 MG/DL (70-100); POTASSIUM SERUM 3.5 MEQ/L (3.5-5.1); SODIUM LEVEL 140 MEQ/L (136-145)
[2018-02-23] MEDS: ALLOPURINOL 100 MG TAB PO (08:40)
[2018-02-23] MEDS: GABAPENTIN 300 MG CAP PO ×4 (08:40→21:00)
[2018-02-23] MEDS: METOPROLOL SUCC (TopROL XL) 50MG **XL** TAB PO (08:40)
[2018-02-23] MEDS: ASCORBIC ACID 500 MG TAB PO (08:40)
[2018-02-23] MEDS: traMADol 50 MG TAB PO ×4 (08:41→20:59)
[2018-02-23] MEDS: CYANOCOBALAMIN 500 MCG TAB PO (08:41)
[2018-02-23] MEDS: PANTOPRAZOLE 40MG INJ (PROTONIX) (C9113) IV ×2 (08:41→21:01)
[2018-02-23] MEDS: HEPARIN SOD (PORCINE) 5000 UNITS/ML VIAL SC ×2 (08:42→21:01)
[2018-02-23] MEDS: cefTRIAXone SOD 1 GM in D5W MINI-BAG PLUS 50 ML IV (08:42)
[2018-02-23] MEDS: POTASSIUM CHLORIDE 10 MEQ SR TABLET PO (10:36)
[2018-02-23] MEDS: ACETAMINOPHEN TAB 650MG DOSE (2X325MG) PO ×2 (11:39→20:59)
[2018-02-23] MEDS: CitaloPRAM (CeleXA) 10 MG TABLET PO (20:59)
[2018-02-23] MEDS: traZODone 50 MG TAB PO (21:00)
[2018-02-23] MEDS: CEFDINIR 300 MG CAP (OMNICEF) PO (21:01)
[2018-02-24] MEDS: SUCRALFATE 1 GM TAB PO ×4 (01:22→18:05)
[2018-02-24 06:23] LABS: HEMATOCRIT 38.2 % (36.0-47.0); HEMOGLOBIN 12.8 g/dl (12.0-15.5); MEAN CORPUSCULAR HEMOGLOBIN 30.8 pg (27.0-33.0); MEAN CORPUSCULAR HGB CONC 33.5 g/dl (32.0-36.5); MEAN CORPUSCULAR VOLUME 91.8 fl (80.0-96.0); PLATELET COUNT, AUTOMATED 256 10^3/uL (150-450); RED BLOOD COUNT 4.16 10^6/uL (4.00-5.40); RED CELL DISTRIBUTION WIDTH 13.6 % (11.5-14.5); WHITE BLOOD COUNT 8.5 10^3/uL (4.0-10.0)
[2018-02-24 06:50] LABS: ANION GAP 9 MEQ/L (8-16); BLOOD UREA NITROGEN 12 MG/DL (7-18); CALCIUM LEVEL 9.5 MG/DL (8.8-10.2); CARBON DIOXIDE LEVEL 29 MEQ/L (21-32); CHLORIDE LEVEL 101 MEQ/L (98-107); CREATININE FOR GFR 0.88 MG/DL (0.55-1.30); GLOMERULAR FILTRATION RATE > 60.0 (>39); GLUCOSE, FASTING 96 MG/DL (70-100); POTASSIUM SERUM 3.6 MEQ/L (3.5-5.1); SODIUM LEVEL 139 MEQ/L (136-145)
[2018-02-24] MEDS: ASCORBIC ACID 500 MG TAB PO (09:09)
[2018-02-24] MEDS: ALLOPURINOL 100 MG TAB PO (09:09)
[2018-02-24] MEDS: GABAPENTIN 300 MG CAP PO ×4 (09:09→20:42)
[2018-02-24] MEDS: PANTOPRAZOLE 40MG INJ (PROTONIX) (C9113) IV ×2 (09:10→20:40)
[2018-02-24] MEDS: METOPROLOL SUCC (TopROL XL) 50MG **XL** TAB PO (09:10)
[2018-02-24] MEDS: CYANOCOBALAMIN 500 MCG TAB PO (09:10)
[2018-02-24] MEDS: CEFDINIR 300 MG CAP (OMNICEF) PO ×2 (09:10→20:40)
[2018-02-24] MEDS: HEPARIN SOD (PORCINE) 5000 UNITS/ML VIAL SC ×2 (09:11→20:40)
[2018-02-24] MEDS: traMADol 50 MG TAB PO ×4 (09:11→20:41)
[2018-02-24] MEDS: ACETAMINOPHEN TAB 650MG DOSE (2X325MG) PO (10:48)
[2018-02-24] MEDS: traZODone 50 MG TAB PO (20:41)
[2018-02-24] MEDS: CitaloPRAM (CeleXA) 10 MG TABLET PO (20:42)
[2018-02-25] MEDS: SUCRALFATE 1 GM TAB PO ×5 (00:18→23:20)
[2018-02-25 06:10] LABS: HEMATOCRIT 38.7 % (36.0-47.0); HEMOGLOBIN 12.9 g/dl (12.0-15.5); MEAN CORPUSCULAR HEMOGLOBIN 30.4 pg (27.0-33.0); MEAN CORPUSCULAR HGB CONC 33.3 g/dl (32.0-36.5); MEAN CORPUSCULAR VOLUME 91.3 fl (80.0-96.0); PLATELET COUNT, AUTOMATED 275 10^3/uL (150-450); RED BLOOD COUNT 4.24 10^6/uL (4.00-5.40); RED CELL DISTRIBUTION WIDTH 13.8 % (11.5-14.5); WHITE BLOOD COUNT 11.5 10^3/uL (4.0-10.0)
[2018-02-25 06:32] LABS: ANION GAP 7 MEQ/L (8-16); BLOOD UREA NITROGEN 14 MG/DL (7-18); CALCIUM LEVEL 9.5 MG/DL (8.8-10.2); CARBON DIOXIDE LEVEL 31 MEQ/L (21-32); CHLORIDE LEVEL 100 MEQ/L (98-107); CREATININE FOR GFR 0.96 MG/DL (0.55-1.30); GLOMERULAR FILTRATION RATE > 60.0 (>39); GLUCOSE, FASTING 106 MG/DL (70-100); POTASSIUM SERUM 3.6 MEQ/L (3.5-5.1); SODIUM LEVEL 138 MEQ/L (136-145)
[2018-02-25] MEDS: PANTOPRAZOLE 40MG INJ (PROTONIX) (C9113) IV ×3 (09:00→22:11)
[2018-02-25] MEDS: CEFDINIR 300 MG CAP (OMNICEF) PO ×2 (09:45→22:09)
[2018-02-25] MEDS: HEPARIN SOD (PORCINE) 5000 UNITS/ML VIAL SC ×2 (09:45→22:09)
[2018-02-25] MEDS: METOPROLOL SUCC (TopROL XL) 50MG **XL** TAB PO (09:45)
[2018-02-25] MEDS: ALLOPURINOL 100 MG TAB PO (09:46)
[2018-02-25] MEDS: traMADol 50 MG TAB PO ×4 (09:46→22:08)
[2018-02-25] MEDS: ASCORBIC ACID 500 MG TAB PO (09:46)
[2018-02-25] MEDS: CYANOCOBALAMIN 500 MCG TAB PO (09:46)
[2018-02-25] MEDS: GABAPENTIN 300 MG CAP PO ×4 (09:46→22:07)
[2018-02-25] MEDS ORDERED: MIRALAX *UNIT DOSE* 17GM PACKET PO (10:45)
[2018-02-25] MEDS ORDERED: SENNA 8.6 MG TAB (SENOKOT) PO (10:45)
[2018-02-25] MEDS: ACETAMINOPHEN TAB 650MG DOSE (2X325MG) PO (14:55)
[2018-02-25] MEDS: CitaloPRAM (CeleXA) 10 MG TABLET PO (22:08)
[2018-02-25] MEDS: traZODone 50 MG TAB PO (22:08)
[2018-02-25] MEDS: PANTOPRAZOLE 40MG TAB (PROTONIX) PO (23:21)
[2018-02-26] MEDS: ACETAMINOPHEN TAB 650MG DOSE (2X325MG) PO (02:07)
[2018-02-26] MEDS: SUCRALFATE 1 GM TAB PO (05:07)
[2018-02-26 06:14] LABS: HEMATOCRIT 41.1 % (36.0-47.0); HEMOGLOBIN 13.4 g/dl (12.0-15.5); MEAN CORPUSCULAR HEMOGLOBIN 30.2 pg (27.0-33.0); MEAN CORPUSCULAR HGB CONC 32.6 g/dl (32.0-36.5); MEAN CORPUSCULAR VOLUME 92.6 fl (80.0-96.0); PLATELET COUNT, AUTOMATED 300 10^3/uL (150-450); RED BLOOD COUNT 4.44 10^6/uL (4.00-5.40); RED CELL DISTRIBUTION WIDTH 13.6 % (11.5-14.5); WHITE BLOOD COUNT 11.9 10^3/uL (4.0-10.0)
[2018-02-26 06:31] LABS: ANION GAP 7 MEQ/L (8-16); BLOOD UREA NITROGEN 14 MG/DL (7-18); CALCIUM LEVEL 10.1 MG/DL (8.8-10.2); CARBON DIOXIDE LEVEL 31 MEQ/L (21-32); CHLORIDE LEVEL 99 MEQ/L (98-107); CREATININE FOR GFR 0.92 MG/DL (0.55-1.30); GLOMERULAR FILTRATION RATE > 60.0 (>39); GLUCOSE, FASTING 110 MG/DL (70-100); POTASSIUM SERUM 3.7 MEQ/L (3.5-5.1); SODIUM LEVEL 137 MEQ/L (136-145)
[2018-02-26] MEDS: HEPARIN SOD (PORCINE) 5000 UNITS/ML VIAL SC (09:00)
[2018-02-26] MEDS: PANTOPRAZOLE 40MG TAB (PROTONIX) PO (09:48)
[2018-02-26] MEDS: ALLOPURINOL 100 MG TAB PO (09:48)
[2018-02-26] MEDS: METOPROLOL SUCC (TopROL XL) 50MG **XL** TAB PO (09:48)
[2018-02-26] MEDS: CEFDINIR 300 MG CAP (OMNICEF) PO (09:48)
[2018-02-26] MEDS: ASCORBIC ACID 500 MG TAB PO (09:48)
[2018-02-26] MEDS: GABAPENTIN 300 MG CAP PO (09:48)
[2018-02-26] MEDS: CYANOCOBALAMIN 500 MCG TAB PO (09:49)
[2018-02-26] MEDS: traMADol 50 MG TAB PO (09:49)
== END 2018-02-26 11:00 | DRG 690 ==
LOC: M MSPAV 02-20 14:18 → M MS5PR 02-23 22:59 → M ED 17:20 → M ED INP 22:47
PROVIDERS: Hospitalist
DX: N10 Acute pyelonephritis (principal); E11.9 Type 2 diabetes mellitus without complications; M79.7 Fibromyalgia; I11.0 Hypertensive heart disease with heart failure; K29.70 Gastritis, unspecified, without bleeding; I50.9 Heart failure, unspecified; N31.9 Neuromuscular dysfunction of bladder, unspecified; B96.20 Unspecified Escherichia coli [E. coli] as the cause of diseases classified elsewhere; M10.9 Gout, unspecified; D47.2 Monoclonal gammopathy; F39 Unspecified mood [affective] disorder; K59.00 Constipation, unspecified; Z88.8 Allergy status to other drugs, medicaments and biological substances; Z91.040 Latex allergy status; Z88.5 Allergy status to narcotic agent; Z91.041 Radiographic dye allergy status; Z79.899 Other long term (current) drug therapy

== ENCOUNTER → 2018-02-28 | Outpatient (REF) | payer MEDICARE, MEDICAID ==
[2018-03-01 11:36] LABS: APPEARANCE, URINE CLEAR (CLEAR); BACTERIA, URINE AUTO NEGATIVE (NEGATIVE); BILIRUBIN, URINE AUTO NEGATIVE (NEGATIVE); BLOOD, URINE BLOOD NEGATIVE (NEGATIVE); COLOR, URINE STRAW (YELLOW); GLUCOSE, URINE (UA) AUTO NEGATIVE (NEGATIVE); KETONE, URINE AUTO NEGATIVE (NEGATIVE); LEUKOCYTE ESTERASE, URINE AUTO NEGATIVE (NEGATIVE); MUCUS, URINE SMALL (NEGATIVE); NITRITE, URINE AUTO NEGATIVE (NEGATIVE); PROTEIN, URINE AUTO NEGATIVE (NEGATIVE); RBC, URINE AUTO 0 /HPF (0-3); SPECIFIC GRAVITY URINE AUTO 1.008 (1.002-1.035); SQUAMOUS EPITHELIAL CELL UR AU 0 /HPF (0-6); UROBILINOGEN, URINE AUTO 0.2 mg/dL (0.0-2.0); WBC, URINE AUTO 2 /HPF (0-3)
== END ==
DX: R50.9 Fever, unspecified (principal); I10 Essential (primary) hypertension
CPT/HCPCS: 81001

== ENCOUNTER → 2018-03-06 | Outpatient (REF) | payer MEDICARE, MEDICAID ==
[2018-03-06 13:32] LABS: BASO # 0.1 10^3/uL (0.0-0.2); BASO % 0.7 % (0.0-1.0); EOS # 0.4 10^3/uL (0.0-0.50); EOS % 4.3 % (0.0-3.0); HEMATOCRIT 38.2 % (36.0-47.0); HEMOGLOBIN 12.5 g/dl (12.0-15.5); IMMATURE GRANULOCYTE % 0.4 % (0-3.0); LYMPH # 1.3 10^3/uL (1.5-4.5); LYMPH % 16.3 % (24.0-44.0); MEAN CORPUSCULAR HEMOGLOBIN 31.2 pg (27.0-33.0); MEAN CORPUSCULAR HGB CONC 32.7 g/dl (32.0-36.5); MEAN CORPUSCULAR VOLUME 95.3 fl (80.0-96.0); MONO # 0.6 10^3/uL (0.0-0.8); MONO % 6.9 % (0.0-5.0); NEUTROPHILS # 5.8 10^3/uL (1.8-7.7); NEUTROPHILS % 71.4 % (36.0-66.0); PLATELET COUNT, AUTOMATED 206 10^3/uL (150-450); RED BLOOD COUNT 4.01 10^6/uL (4.00-5.40); RED CELL DISTRIBUTION WIDTH 13.3 % (11.5-14.5); WHITE BLOOD COUNT 8.1 10^3/uL (4.0-10.0)
== END ==
DX: R50.9 Fever, unspecified (principal); I10 Essential (primary) hypertension
CPT/HCPCS: 85025

== ENCOUNTER → 2018-06-26 | Outpatient (REF) | payer MEDICARE, MEDICAID ==
[~2018-06-26] MED LIST changes: +ACET1TAB55 PO; +ALLO100T PO; +ASCO500T PO; +B-122500 PO; +CITA10TA5 PO; +COLC1TAB13 PO; -GABA-282 PO; -GABA-283 PO; +GABA-843 PO; +GABA-845 PO; -GABA600T PO; +GABA600T4 PO; +KEFL500C17 PO; +METO1TAB7 PO; +MILK120011 PO; -MILKSUS PO; +NAPR-885 PO; -NAPR500T3 PO; -PANT40TA2 PO; +PANT40TA3 PO; +TRAZ150T90 PO; +VITA500T3 PO; -ZOFR8TAB PO; +ZOFR8TAB24 PO
== END ==
PROVIDERS: ATTEND Urology
DX: R35.0 Frequency of micturition (principal)

== ENCOUNTER → 2018-11-13 | Outpatient (REF) | payer MEDICARE, MEDICAID ==
[~2018-11-13] MED LIST changes: +CEFD300C41 PO; +CYAN500T8 PO; +HYDR-3715 PO; -NORCOTAB PO; +OXYB10TA2 PO; -SENN1TAB2 PO; +SENN1TAB40 PO; +VITA100018 PO; -VITA100072 PO; -VITA500T3 PO
[2018-11-13 09:28] LABS: BASO # 0.1 10^3/uL (0.0-0.2); BASO % 0.7 % (0.0-1.0); EOS # 0.2 10^3/uL (0.0-0.50); EOS % 2.3 % (0.0-3.0); HEMATOCRIT 40.4 % (36.0-47.0); HEMOGLOBIN 13.1 g/dl (12.0-15.5); LYMPH # 2.4 10^3/uL (1.5-4.5); LYMPH % 25.6 % (24.0-44.0); MEAN CORPUSCULAR HEMOGLOBIN 31.4 pg (27.0-33.0); MEAN CORPUSCULAR HGB CONC 32.4 g/dl (32.0-36.5); MEAN CORPUSCULAR VOLUME 96.9 fl (80.0-96.0); MONO # 0.7 10^3/uL (0.0-0.8); MONO % 7.3 % (0.0-5.0); NEUTROPHILS % 63.5 % (36.0-66.0); PLATELET COUNT, AUTOMATED 264 10^3/uL (150-450); RED BLOOD COUNT 4.17 10^6/uL (4.00-5.40); WHITE BLOOD COUNT 9.4 10^3/uL (4.0-10.0)
[2018-11-13 09:43] LABS: CALCIUM LEVEL 9.5 MG/DL (8.8-10.2); CREATININE FOR GFR 0.98 MG/DL (0.55-1.30); GLOMERULAR FILTRATION RATE 58.7 (>39); POTASSIUM SERUM 4.1 MEQ/L (3.5-5.1)
== END ==
PROVIDERS: ATTEND Physician Assistant
DX: I10 Essential (primary) hypertension (principal)

== ENCOUNTER → 2018-12-25 | Outpatient (REF) | payer MEDICARE, MEDICAID | LOC: M LAB REF 12:18 | PROVIDERS: ATTEND Urology | DX: N32.81 Overactive bladder (principal); R35.0 Frequency of micturition ==

== ENCOUNTER → 2019-01-17 | Outpatient (REF) | payer MEDICARE, MEDICAID ==
[2019-01-17 15:43] LABS: BASO # 0.1 10^3/uL (0.0-0.2); BASO % 0.5 % (0.0-1.0); EOS # 0.2 10^3/uL (0.0-0.5); EOS % 2.3 % (0.0-3.0); HEMATOCRIT 41.8 % (36.0-47.0); HEMOGLOBIN 13.6 g/dl (12.0-15.5); LYMPH # 2.6 10^3/uL (1.5-5.0); MEAN CORPUSCULAR HEMOGLOBIN 31.9 pg (27.0-33.0); MEAN CORPUSCULAR HGB CONC 32.5 g/dl (32.0-36.5); MEAN CORPUSCULAR VOLUME 97.9 fl (80.0-96.0); MONO # 0.7 10^3/uL (0.0-0.8); MONO % 7.5 % (0.0-5.0); NEUTROPHILS # 5.5 10^3/uL (1.5-8.5); NEUTROPHILS % 60.4 % (36.0-66.0); PLATELET COUNT, AUTOMATED 265 10^3/uL (150-450); RED BLOOD COUNT 4.27 10^6/uL (4.00-5.40); WHITE BLOOD COUNT 9.1 10^3/uL (4.0-10.0)
[2019-01-17 15:45] LABS: BLOOD UREA NITROGEN 13 MG/DL (7-18); CALCIUM LEVEL 9.5 MG/DL (8.8-10.2); CARBON DIOXIDE LEVEL 32 MEQ/L (21-32); CHLORIDE LEVEL 102 MEQ/L (98-107); GLOMERULAR FILTRATION RATE > 60.0 (>39); GLUCOSE, FASTING 87 MG/DL (70-100); POTASSIUM SERUM 4.3 MEQ/L (3.5-5.1); SODIUM LEVEL 142 MEQ/L (136-145)
[2019-01-17 18:39] LABS: APPEARANCE, URINE HAZY (CLEAR); BACTERIA, URINE AUTO 1+ (NEGATIVE); BILIRUBIN, URINE AUTO NEGATIVE (NEGATIVE); BLOOD, URINE BLOOD NEGATIVE (NEGATIVE); COLOR, URINE YELLOW (YELLOW); GLUCOSE, URINE (UA) AUTO NEGATIVE (NEGATIVE); KETONE, URINE AUTO NEGATIVE (NEGATIVE); LEUKOCYTE ESTERASE, URINE AUTO 3+ (NEGATIVE); MUCUS, URINE SMALL (NEGATIVE); NITRITE, URINE AUTO NEGATIVE (NEGATIVE); PROTEIN, URINE AUTO NEGATIVE (NEGATIVE); RBC, URINE AUTO 2 /HPF (0-3); SPECIFIC GRAVITY URINE AUTO 1.012 (1.002-1.035); SQUAMOUS EPITHELIAL CELL UR AU 0 /HPF (0-6); UROBILINOGEN, URINE AUTO 0.2 mg/dL (0.0-2.0); WBC, URINE AUTO 118 /HPF (0-3)
== END ==
LOC: M SFHCPLAZ 14:02
PROVIDERS: ATTEND Family Medicine
DX: R30.0 Dysuria (principal)

== ENCOUNTER → 2019-03-04 | Outpatient (CLI) | payer MEDICARE, MEDICAID ==
[~2019-03-04] MED LIST changes: +SENN-53 PO; -SENN1TAB40 PO
--- NOTE | 2019-03-04 15:11 | REP ---
Urinary tract sonography: History: Occasional kidney pain. History of neurogenic bladder. Comparison CT study February 21, 2018. Sonographic findings: Renal cortical echogenicity pattern is somewhat increased consistent with chronic medical renal disease. There is no evidence of hydronephrosis on either side. No cyst, mass or calculus is evident. The right renal dimensions are 9.1 x 4.5 x 4.8 cm. Left kidney measures 10.2 x 5.6 x 4.1 cm. Impression: Increased renal cortical echogenicity pattern consistent with chronic medical renal disease. No hydronephrosis seen. Electronically Signed by Gildardo Dixon MD 03/04/2019 05:11 P
--- NOTE | 2019-03-04 15:12 | REP ---
Limited pelvic bladder sonography: History: Urge incontinence. Neurogenic bladder. The patient self catheterizes however she did not bring her catheter and thus postvoid imaging could not be achieved today. Pre-void imaging shows a calculated bladder volume of 148 mL. Emptying ureteral jets are confirmed on color Doppler interrogation of the bladder lumen bilaterally. No bladder mass lesion is observed. Impression: No morphologic abnormality noted. Electronically Signed by Gildardo Dixon MD 03/04/2019 05:11 P
== END ==
LOC: M RAD 10:24
PROVIDERS: ATTEND Physician Assistant
DX: R93.429 Abnormal radiologic findings on diagnostic imaging of unspecified kidney (principal); N32.81 Overactive bladder; N39.41 Urge incontinence; N10 Acute pyelonephritis

== ENCOUNTER → 2019-03-19 | Outpatient (REF) | payer MEDICARE, MEDICAID ==
[2019-03-19 11:56] LABS: ALBUMIN 3.8 GM/DL (3.2-5.2); ALT/SGPT 25 U/L (12-78); BILIRUBIN,TOTAL 0.6 MG/DL (0.2-1.0); BLOOD UREA NITROGEN 14 MG/DL (7-18); CALCIUM LEVEL 9.2 MG/DL (8.8-10.2); CARBON DIOXIDE LEVEL 30 MEQ/L (21-32); CHLORIDE LEVEL 104 MEQ/L (98-107); CREATININE FOR GFR 0.94 MG/DL (0.55-1.30); GLOMERULAR FILTRATION RATE > 60.0 (>39); GLUCOSE, FASTING 103 MG/DL (70-100); POTASSIUM SERUM 4.4 MEQ/L (3.5-5.1); SODIUM LEVEL 140 MEQ/L (136-145); TOTAL 25(OH) VITAMIN D 16.4 NG/ML (30.0-100.0); TOTAL PROTEIN 6.9 GM/DL (6.4-8.2)
[2019-03-19 13:31] LABS: HEMOGLOBIN A1c 6.1 %
== END ==
LOC: M SFHCPLAZ 09:24
PROVIDERS: ATTEND Nurse Practitioner Adult Health
DX: I10 Essential (primary) hypertension (principal); E53.8 Deficiency of other specified B group vitamins; E74.39 Other disorders of intestinal carbohydrate absorption

== ENCOUNTER → 2019-06-03 | Outpatient (REF) | payer MEDICARE, MEDICAID ==
[~2019-06-03] MED LIST changes: -OXYB10TA2 PO; +OXYB10TA23 PO
[2019-06-03 18:20] LABS: APPEARANCE, URINE CLEAR (CLEAR); BACTERIA, URINE AUTO 1+ (NEGATIVE); BILIRUBIN, URINE AUTO NEGATIVE (NEGATIVE); BLOOD, URINE BLOOD NEGATIVE (NEGATIVE); COLOR, URINE YELLOW (YELLOW); GLUCOSE, URINE (UA) AUTO NEGATIVE (NEGATIVE); KETONE, URINE AUTO NEGATIVE (NEGATIVE); LEUKOCYTE ESTERASE, URINE AUTO TRACE (NEGATIVE); NITRITE, URINE AUTO NEGATIVE (NEGATIVE); PROTEIN, URINE AUTO NEGATIVE (NEGATIVE); RBC, URINE AUTO 1 /HPF (0-3); SPECIFIC GRAVITY URINE AUTO 1.012 (1.002-1.035); SQUAMOUS EPITHELIAL CELL UR AU 0 /HPF (0-6); UROBILINOGEN, URINE AUTO 0.2 mg/dL (0.0-2.0); WBC, URINE AUTO 9 /HPF (0-3)
== END ==
PROVIDERS: ATTEND Urology
DX: R35.0 Frequency of micturition (principal); N32.81 Overactive bladder; N39.41 Urge incontinence

== ENCOUNTER → 2019-11-26 | Outpatient (REF) | payer MEDICARE, MEDICAID ==
[~2019-11-26] MED LIST changes: +ENAL5TA PO; -ENAL5TAB PO; +PANT40TA29 PO; -PANT40TA3 PO; +VITA-243 PO; -VITA500T PO
[2020-01-10 13:24] LABS: ALBUMIN 4.1 GM/DL (3.2-5.2); BILIRUBIN,TOTAL 0.4 MG/DL (0.2-1.0); CALCIUM LEVEL 9.5 MG/DL (8.8-10.2); CREATININE FOR GFR 1.24 MG/DL (0.55-1.30); GLOMERULAR FILTRATION RATE 44.7 (>39); POTASSIUM SERUM 4.8 MEQ/L (3.5-5.1); TOTAL PROTEIN 6.9 GM/DL (6.4-8.2)
== END ==
LOC: M SFHCPLAZ 14:43
PROVIDERS: ATTEND Nurse Practitioner Adult Health
DX: I10 Essential (primary) hypertension (principal)

== ENCOUNTER → 2019-12-31 | Outpatient (REF) | payer MEDICARE, MEDICAID | LOC: M LAB REF 17:24 | PROVIDERS: ATTEND Urology | DX: N32.81 Overactive bladder (principal); R35.0 Frequency of micturition ==

== ENCOUNTER → 2020-01-20 | Outpatient (CLI) | payer MEDICARE, MEDICAID ==
[~2020-01-20] MED LIST changes: +COLC0.6T47 PO; -COLC1TAB13 PO; +CYAN500T14 PO; -CYAN500T8 PO
== END ==
LOC: M RAD 06:25
DX: Z53.9 Procedure and treatment not carried out, unspecified reason (principal); M47.816 Spondylosis without myelopathy or radiculopathy, lumbar region; M48.05 Spinal stenosis, thoracolumbar region

== ENCOUNTER → 2020-03-06 | Outpatient (CLI) | payer MEDICARE, MEDICAID ==
[~2020-03-06] MED LIST changes: -COLC0.6T47 PO; +COLC1TAB13 PO; -CYAN500T14 PO; +CYAN500T8 PO
--- NOTE | 2020-03-06 17:20 | REPVR ---
PROCEDURE INFORMATION: Exam: MR Thoracic Spine Without Contrast Exam date and time: 03/06/2020 4:22 PM Age: 79 years old Clinical indication: Pain in thoracic spine; Without myelpathy or radiculopathy; Patient HX: Mid back pain; Additional info: Lumbar and thorasic spondylosis TECHNIQUE: Imaging protocol: Multiplanar magnetic resonance images of the thoracic spine without contrast. COMPARISON: No relevant prior studies available. FINDINGS: Vertebrae: There is no acute fracture. Alignment is anatomic. Bone marrow signal is heterogeneous but within normal limits. Spinal cord: Normal signal. No cord compression. Discs/Spinal canal/Neural foramina: Moderate/severe degenerative changes of the thoracic spine are noted. Posterior disc bulging is present at most levels except for T4-5. There is mild spinal canal stenosis at T1-2, T7-8, T9-10, T10-11, and T11-12. No severe canal stenosis is identified. Soft tissues: Unremarkable. IMPRESSION: 1. No acute abnormality. 2. Chronic findings as discussed above. Electronically signed by: Ricardo Desai On 03/06/2020 17:20:20 PM
--- NOTE | 2020-03-06 17:29 | REPVR ---
PROCEDURE INFORMATION: Exam: MR Lumbar Spine Without Contrast. Exam date and time: 03/06/2020 4:22 PM Age: 79 years old Clinical indication: Low back pain; Patient HX: Lbp; Additional info: Lumbar and thorasic spondylosis TECHNIQUE: Imaging protocol: Multiplanar magnetic resonance images of the lumbar spine without intravenous contrast. COMPARISON: No relevant prior studies available. FINDINGS: Vertebrae: No acute compression fracture is seen. Minor retrolisthesis of L5 on S1 is present. Spinal cord: The conus medullaris terminates at the inferior L1 level. There is no evidence of arachnoiditis or cauda equina compression. L1-L2: There is minimal diffuse circumferential disc bulging and mild facet arthropathy. No spinal canal or neural foraminal stenosis is present. L2-L3: There is moderate diffuse circumferential disc bulging and facet arthropathy. This is causing mild spinal canal stenosis and mild right neural foraminal narrowing. L3-L4: There is disc dehydration, moderate disc space narrowing, diffuse circumferential disc bulging, and a superimposed central disc osteophyte complex. Thickening of the ligamentum flavum and moderate facet arthropathy is also noted. This is causing mild/moderate spinal canal stenosis, moderate narrowing of the subarticular recesses, mild right neural foraminal narrowing, and minimal left neural foraminal narrowing. L4-L5: There is mild diffuse circumferential disc bulging, left foraminal and extraforaminal osteophytic ridging, and moderate facet arthropathy. This is causing minimal spinal canal stenosis, mild narrowing of the left subarticular recess, mild left neural foraminal narrowing, and minimal right neural foraminal narrowing. L5-S1: There is mild diffuse circumferential disc bulging, circumferential osteophytic ridging, and facet arthropathy. There is no spinal canal stenosis. Mild bilateral neural foraminal narrowing is present. Soft tissues: Unremarkable. IMPRESSION: Chronic degenerative changes of the lumbar spine as discussed above Electronically signed by: Ricardo Desai On 03/06/2020 17:29:27 PM
== END ==
LOC: M PLARAD 14:58
PROVIDERS: ATTEND Nurse Practitioner Family
DX: M48.07 Spinal stenosis, lumbosacral region (principal); M51.24 Other intervertebral disc displacement, thoracic region

== ENCOUNTER → 2020-03-24 | Outpatient (REF) | payer MEDICARE, MEDICAID ==
[~2020-03-24] MED LIST changes: +COLC0.6T47 PO; -COLC1TAB13 PO; +CYAN500T14 PO; -CYAN500T8 PO
== END ==
LOC: M SFHCPLAZ 17:22
PROVIDERS: ATTEND Physician Assistant
DX: J01.90 Acute sinusitis, unspecified (principal)

== ENCOUNTER → 2020-04-03 | Outpatient (REF) | payer MEDICARE, MEDICAID | PROVIDERS: ATTEND Internal Medicine | DX: Z20.828 Contact with and (suspected) exposure to other viral communicable diseases (principal) ==

== ENCOUNTER → 2020-04-08 | Outpatient (REF) | payer MEDICARE, MEDICAID | PROVIDERS: ATTEND Internal Medicine | DX: Z20.828 Contact with and (suspected) exposure to other viral communicable diseases (principal) ==

== ENCOUNTER → 2020-04-13 | Outpatient (REF) | payer MEDICARE, MEDICAID | PROVIDERS: ATTEND Internal Medicine | DX: Z53.9 Procedure and treatment not carried out, unspecified reason (principal) ==

== ENCOUNTER → 2020-04-20 | Outpatient (REF) | payer MEDICARE, MEDICAID | PROVIDERS: ATTEND Internal Medicine | DX: Z20.828 Contact with and (suspected) exposure to other viral communicable diseases (principal) ==

== ENCOUNTER → 2020-04-27 | Outpatient (REF) | payer MEDICARE, MEDICAID | PROVIDERS: ATTEND Internal Medicine | DX: Z11.52 Encounter for screening for COVID-19 (principal) ==

== ENCOUNTER → 2020-05-04 | Outpatient (REF) | payer MEDICARE, MEDICAID ==
[~2020-05-04] MED LIST changes: +GABA-282 PO; -GABA-843 PO
== END ==
PROVIDERS: ATTEND Internal Medicine
DX: Z20.822 Contact with and (suspected) exposure to COVID-19 (principal)

== ENCOUNTER → 2020-05-11 | Outpatient (REF) | payer MEDICARE, MEDICAID | PROVIDERS: ATTEND Internal Medicine | DX: Z20.822 Contact with and (suspected) exposure to COVID-19 (principal) ==

== ENCOUNTER → 2020-05-18 | Outpatient (REF) | payer MEDICARE, MEDICAID | PROVIDERS: ATTEND Internal Medicine | DX: Z20.822 Contact with and (suspected) exposure to COVID-19 (principal) ==

== ENCOUNTER → 2020-05-25 | Outpatient (REF) | payer MEDICARE, MEDICAID | PROVIDERS: ATTEND Internal Medicine | DX: Z20.822 Contact with and (suspected) exposure to COVID-19 (principal) ==

== ENCOUNTER → 2020-06-01 | Outpatient (REF) | payer MEDICARE, MEDICAID | PROVIDERS: ATTEND Internal Medicine | DX: Z20.822 Contact with and (suspected) exposure to COVID-19 (principal) ==

== ENCOUNTER → 2020-06-08 | Outpatient (REF) | payer MEDICARE, MEDICAID | PROVIDERS: ATTEND Internal Medicine | DX: Z20.822 Contact with and (suspected) exposure to COVID-19 (principal) ==

== ENCOUNTER → 2020-06-19 | Outpatient (REF) | payer MEDICARE, MEDICAID ==
[2020-06-19 12:08] LABS: CALCIUM LEVEL 9.9 MG/DL (8.8-10.2); CREATININE FOR GFR 1.17 MG/DL (0.55-1.30); GLOMERULAR FILTRATION RATE 47.6 (>39); POTASSIUM SERUM 4.2 MEQ/L (3.5-5.1)
== END ==
PROVIDERS: ATTEND Physician Assistant
DX: R06.02 Shortness of breath (principal); I10 Essential (primary) hypertension

== ENCOUNTER → 2020-06-25 | Outpatient (CLI) | payer MEDICARE, MEDICAID ==
--- NOTE | 2020-06-25 10:59 | REP ---
INDICATION: SHORTNESS OF BREATH COMPARISON: 02/21/2018 TECHNIQUE: PA and lateral. FINDINGS: The mediastinum and cardiac silhouette are normal. The lung burris are clear and without acute consolidation, effusion, or pneumothorax. The skeletal structures are intact and normal. IMPRESSION: No acute cardiopulmonary process. <Electronically signed by Richard Francisco > 06/25/20 [id number]
== END ==
LOC: M RAD 10:30
PROVIDERS: ATTEND Physician Assistant
DX: R06.02 Shortness of breath (principal)

== ENCOUNTER → 2020-06-29 | Outpatient (REF) | payer MEDICARE, MEDICAID | PROVIDERS: ATTEND Urology | DX: N39.0 Urinary tract infection, site not specified (principal) ==

== ENCOUNTER → 2020-08-11 | Outpatient (REF) | payer MEDICARE, MEDICAID | PROVIDERS: ATTEND Physician Assistant | DX: N39.0 Urinary tract infection, site not specified (principal) ==

== ENCOUNTER → 2020-09-08 | Outpatient (REF) | payer MEDICARE, MEDICAID ==
[~2020-09-08] MED LIST changes: +GABA-283 PO; -GABA-845 PO
[2020-09-08 13:52] LABS: HEMOGLOBIN A1c 6.1 %
[2020-09-08 14:06] LABS: ALBUMIN 4.1 GM/DL (3.2-5.2); ALT/SGPT 21 U/L (12-78); BILIRUBIN,TOTAL 0.3 MG/DL (0.2-1.0); BLOOD UREA NITROGEN 17 MG/DL (7-18); CALCIUM LEVEL 9.9 MG/DL (8.8-10.2); CARBON DIOXIDE LEVEL 34 MEQ/L (21-32); CHLORIDE LEVEL 99 MEQ/L (98-107); CREATININE FOR GFR 0.92 MG/DL (0.55-1.30); GLOMERULAR FILTRATION RATE > 60.0 (>39); GLUCOSE, FASTING 98 MG/DL (70-100); POTASSIUM SERUM 4.3 MEQ/L (3.5-5.1); SODIUM LEVEL 136 MEQ/L (136-145); THYROID STIMULATING HORMONE 0.837 uIU/ML (0.358-3.740); TOTAL PROTEIN 7.3 GM/DL (6.4-8.2); URIC ACID 4.5 MG/DL (2.6-6.0)
[2020-09-08 14:07] LABS: VITAMIN B12 LEVEL 1168 PG/ML (247-911)
== END ==
LOC: M SFHCPLAZ 11:24
PROVIDERS: ATTEND Nurse Practitioner Adult Health
DX: M10.09 Idiopathic gout, multiple sites (principal); E74.39 Other disorders of intestinal carbohydrate absorption; I10 Essential (primary) hypertension; E53.8 Deficiency of other specified B group vitamins; Z79.899 Other long term (current) drug therapy

== ENCOUNTER → 2020-09-23 | Outpatient (REF) | payer MEDICARE, MEDICAID | PROVIDERS: ATTEND Nurse Practitioner Adult Health | DX: E55.9 Vitamin D deficiency, unspecified (principal); Z79.899 Other long term (current) drug therapy ==

== ENCOUNTER → 2020-09-30 | Outpatient (REF) | payer MEDICARE, MEDICAID | PROVIDERS: ATTEND Nurse Practitioner Adult Health | DX: E55.9 Vitamin D deficiency, unspecified (principal); Z79.899 Other long term (current) drug therapy ==

== ENCOUNTER → 2020-10-21 | Outpatient (REF) | payer MEDICARE, MEDICAID | PROVIDERS: ATTEND Nurse Practitioner Adult Health | DX: E55.9 Vitamin D deficiency, unspecified (principal) ==

== ENCOUNTER → 2020-10-28 | Outpatient (REF) | payer MEDICARE, MEDICAID | PROVIDERS: ATTEND Nurse Practitioner Adult Health | DX: E55.9 Vitamin D deficiency, unspecified (principal) ==

== ENCOUNTER → 2020-11-04 | Outpatient (REF) | payer MEDICARE, MEDICAID | PROVIDERS: ATTEND Nurse Practitioner Adult Health | DX: E53.8 Deficiency of other specified B group vitamins (principal); Z79.899 Other long term (current) drug therapy ==

== ENCOUNTER → 2020-11-11 | Outpatient (REF) | payer MEDICARE, MEDICAID ==
[~2020-11-11] MED LIST changes: -CITA10TA5 PO; +CITA10TA7 PO
== END ==
PROVIDERS: ATTEND Nurse Practitioner Adult Health
DX: E53.8 Deficiency of other specified B group vitamins (principal); Z79.899 Other long term (current) drug therapy

== ENCOUNTER → 2020-11-18 | Outpatient (REF) | payer MEDICARE, MEDICAID | PROVIDERS: ATTEND Nurse Practitioner Adult Health | DX: E53.8 Deficiency of other specified B group vitamins (principal); Z79.899 Other long term (current) drug therapy ==

== ENCOUNTER → 2020-12-21 | Outpatient (REF) | payer MEDICARE, MEDICAID ==
[~2020-12-21] MED LIST changes: +CITA10TA5 PO; -CITA10TA7 PO
== END ==
PROVIDERS: ATTEND Physician Assistant
DX: R06.02 Shortness of breath (principal); I10 Essential (primary) hypertension; Z53.8 Procedure and treatment not carried out for other reasons

== ENCOUNTER → 2020-12-25 | Outpatient (CLI) | payer MEDICARE, MEDICAID ==
[2020-12-25 11:17] LABS: ALBUMIN 3.8 GM/DL (3.2-5.2); BILIRUBIN,TOTAL 0.4 MG/DL (0.2-1.0); CREATININE FOR GFR 1.12 MG/DL (0.55-1.30); GLOMERULAR FILTRATION RATE 50.1 (>39); MAGNESIUM LEVEL 1.6 MG/DL (1.8-2.4); POTASSIUM SERUM 3.9 MEQ/L (3.5-5.1); TOTAL PROTEIN 7.1 GM/DL (6.4-8.2)
--- NOTE | 2020-12-25 11:29 | REP ---
INDICATION: SHORTNESS OF BREATH *LABS 1ST, XRY 2ND* COMPARISON: 06/25/2020. TECHNIQUE: PA/Lateral FINDINGS: Lungs: Clear, no infiltrate. Heart: Upper limits of normal in size. Mediastinum: Mediastinal silhouette unremarkable. There is some calcified plaque in the thoracic aorta. Pleural angles: Unremarkable.. Bones and soft tissues: There are degenerative changes of the spine without compression deformity. IMPRESSION: No acute pulmonary disease. <Electronically signed by Griffin Pat > 12/25/20 1122
== END ==
LOC: M LAB 09:40
PROVIDERS: ATTEND Physician Assistant
DX: R06.02 Shortness of breath (principal); I10 Essential (primary) hypertension; I70.0 Atherosclerosis of aorta

== ENCOUNTER → 2020-12-29 | Outpatient (REF) | payer MEDICARE, MEDICAID | PROVIDERS: ATTEND Urology | DX: N32.81 Overactive bladder (principal); Z79.899 Other long term (current) drug therapy ==

== ENCOUNTER → 2021-02-08 | Outpatient (REF) | payer MEDICARE, MEDICAID ==
[2021-02-08 11:15] LABS: ALBUMIN 3.6 GM/DL (3.2-5.2); ALT/SGPT 22 U/L (12-78); BILIRUBIN,TOTAL 0.3 MG/DL (0.2-1.0); BLOOD UREA NITROGEN 15 MG/DL (7-18); CALCIUM LEVEL 9.4 MG/DL (8.8-10.2); CARBON DIOXIDE LEVEL 28 MEQ/L (21-32); CHLORIDE LEVEL 102 MEQ/L (98-107); CHOLESTEROL LEVEL 271 MG/DL (<200); CHOLESTEROL RISK RATIO 9.344 (<5); CREATININE FOR GFR 1.03 MG/DL (0.55-1.30); GLOMERULAR FILTRATION RATE 55.2 (>39); GLUCOSE, FASTING 118 MG/DL (70-100); HDL CHOLESTEROL 29 MG/DL (>40); MAGNESIUM LEVEL 1.7 MG/DL (1.8-2.4); NON-HDL-C 242 MG/DL; SODIUM LEVEL 137 MEQ/L (136-145); TOTAL PROTEIN 6.8 GM/DL (6.4-8.2); TRIGLYCERIDES LEVEL 874 MG/DL (<150)
[2021-02-08 11:18] LABS: TOTAL 25(OH) VITAMIN D 45.3 NG/ML (30.0-100.0); VITAMIN B12 LEVEL 1167 PG/ML (247-911)
[2021-02-08 11:30] LABS: HEMOGLOBIN A1c 5.9 %
== END ==
PROVIDERS: ATTEND Nurse Practitioner Adult Health
DX: E74.39 Other disorders of intestinal carbohydrate absorption (principal); I10 Essential (primary) hypertension; E55.9 Vitamin D deficiency, unspecified; Z13.220 Encounter for screening for lipoid disorders; Z79.899 Other long term (current) drug therapy

== ENCOUNTER → 2021-03-06 | Outpatient (CLI) | payer MEDICARE, MEDICAID ==
--- NOTE | 2021-03-08 18:58 | SLEEPCENT ---
DATE: 03/06/2021 ORDERED BY: Jan Foster MD Nocturnal polysomnography was performed for evaluation of sleep physiology. Seven hours and 52 minutes of data were reviewed. There were 451 minutes of sleep identified. Sleep latency was quite short at 1 minute. REM sleep latency was prolonged at 222 minutes. Sleep architecture showed poor progression early in the study. There were three REM cycles, one quite long late in the test. Overall sleep efficiency was 97.6%. The electrocardiogram showed an underlying sinus rhythm with an average heart rate of 60 beats per minute. EEG showed normal waveforms for wake and sleep. There were 185 respiratory events identified of 10 seconds in duration or greater for an apnea-hypopnea index of 24.6. The events were primarily obstructive, more frequent but not exclusive to stage REM, more frequent in the supine posture. Arousals from respiratory events occurred 2.7 times per hour, and oxygen desaturations were seen into the low 80s. There was some minor activity in the limb leads but no frequent arousals were demonstrated. IMPRESSION: Obstructive sleep apnea syndrome (G47.33). Apnea-hypopnea index 24.6. RECOMMENDATION: The patient should be encouraged to return to [facility] for pressure [facility]. In the interim, alcohol and sedative avoidance should be practiced and caution exercised during the operation of motor vehicles. cc: RORY Roman
== END ==
LOC: M SLEEP 20:00
PROVIDERS: ATTEND Internal Medicine Pulmonary Disease
DX: R06.83 Snoring (principal); G47.33 Obstructive sleep apnea (adult) (pediatric)

== ENCOUNTER → 2021-03-29 | Outpatient (REF) | payer MEDICARE, MEDICAID | PROVIDERS: ATTEND Nurse Practitioner Adult Health | DX: R43.8 Other disturbances of smell and taste (principal) ==

== ENCOUNTER → 2021-04-15 | Outpatient (CLI) | payer MEDICARE, MEDICAID ==
[~2021-04-15] MED LIST changes: -CITA10TA5 PO; +CITA10TA7 PO
== END ==
LOC: M SLEEP 20:00
PROVIDERS: ATTEND Internal Medicine Pulmonary Disease
DX: G47.33 Obstructive sleep apnea (adult) (pediatric) (principal)

== ENCOUNTER → 2021-05-11 | Outpatient (CLI) | payer MEDICARE, MEDICAID | LOC: M CARPUL 08:02 | PROVIDERS: ATTEND Internal Medicine Pulmonary Disease | DX: G47.33 Obstructive sleep apnea (adult) (pediatric) (principal) ==

== ENCOUNTER → 2021-07-06 | Outpatient (CLI) | payer MEDICARE, MEDICAID ==
[~2021-07-06] MED LIST changes: +METHACHOLINE KIT (J7674) INH ONE
== END ==
LOC: M CARPUL 06-29 09:36
PROVIDERS: ATTEND Internal Medicine Pulmonary Disease
DX: G47.33 Obstructive sleep apnea (adult) (pediatric) (principal)
CPT/HCPCS: 94070; 95070; J7674

== ENCOUNTER → 2021-08-02 | Outpatient (REF) | payer MEDICARE, MEDICAID ==
[~2021-08-02] MED LIST changes: -METHACHOLINE KIT (J7674) INH ONE
== END ==
PROVIDERS: ATTEND Urology
DX: N39.41 Urge incontinence (principal); N39.0 Urinary tract infection, site not specified

== ENCOUNTER → 2021-08-03 | Outpatient (REF) | payer MEDICARE, MEDICAID ==
[2021-08-03 18:50] LABS: RSV AMPLIFICATION NEGATIVE (NEGATIVE)
== END ==
PROVIDERS: ATTEND Internal Medicine
DX: Z01.818 Encounter for other preprocedural examination (principal); Z11.52 Encounter for screening for COVID-19

== ENCOUNTER → 2021-08-16 | Outpatient (REF) | payer MEDICARE, MEDICAID | PROVIDERS: ATTEND Nurse Practitioner Adult Health | DX: Z13.29 Encounter for screening for other suspected endocrine disorder (principal); E74.39 Other disorders of intestinal carbohydrate absorption; E53.8 Deficiency of other specified B group vitamins; E55.9 Vitamin D deficiency, unspecified; R79.9 Abnormal finding of blood chemistry, unspecified ==

== ENCOUNTER → 2021-08-30 | Outpatient (REF) | payer MEDICARE, MEDICAID ==
[2021-08-30 10:48] LABS: ALBUMIN 3.8 GM/DL (3.2-5.2); BILIRUBIN,TOTAL 0.5 MG/DL (0.2-1.0); CALCIUM LEVEL 10.2 MG/DL (8.8-10.2); CREATININE FOR GFR 1.12 MG/DL (0.55-1.30); MAGNESIUM LEVEL 1.9 MG/DL (1.8-2.4); POTASSIUM SERUM 4.2 MEQ/L (3.5-5.1); TOTAL PROTEIN 7.4 GM/DL (6.4-8.2)
== END ==
PROVIDERS: ATTEND Physician Assistant
DX: I10 Essential (primary) hypertension (principal)

== ENCOUNTER → 2021-11-09 | Outpatient (REF) | payer MEDICARE, MEDICAID | LOC: M SFHCPLAZ 09:53 | PROVIDERS: ATTEND Nurse Practitioner Adult Health | DX: R19.7 Diarrhea, unspecified (principal) ==

== ENCOUNTER → 2021-11-10 | Outpatient (REF) | payer MEDICARE, MEDICAID ==
[2021-11-10 12:58] LABS: HEMATOCRIT 37.2 % (36.0-47.0); HEMOGLOBIN 12.5 g/dl (12.0-15.5); MEAN CORPUSCULAR HEMOGLOBIN 32.3 pg (27.0-33.0); MEAN CORPUSCULAR HGB CONC 33.6 g/dl (32.0-36.5); MEAN CORPUSCULAR VOLUME 96.1 fl (80.0-96.0); PLATELET COUNT, AUTOMATED 247 10^3/uL (150-450); RED BLOOD COUNT 3.87 10^6/uL (4.00-5.40); WHITE BLOOD COUNT 8.9 10^3/uL (4.0-10.0)
[2021-11-10 13:34] LABS: ALBUMIN 3.9 GM/DL (3.2-5.2); BILIRUBIN,TOTAL 0.3 MG/DL (0.2-1.0); CALCIUM LEVEL 9.9 MG/DL (8.8-10.2); CREATININE FOR GFR 1.65 MG/DL (0.55-1.30); GLOMERULAR FILTRATION RATE 31.9 (>39); POTASSIUM SERUM 3.9 MEQ/L (3.5-5.1); TOTAL PROTEIN 6.8 GM/DL (6.4-8.2)
== END ==
PROVIDERS: ATTEND Nurse Practitioner Adult Health
DX: R19.7 Diarrhea, unspecified (principal)

== ENCOUNTER → 2021-11-10 | Outpatient (REF) | payer MEDICARE, MEDICAID | PROVIDERS: ATTEND Nurse Practitioner Adult Health | DX: Z20.822 Contact with and (suspected) exposure to COVID-19 (principal) ==

== ENCOUNTER → 2021-11-22 | Outpatient (CLI) | payer MEDICARE, MEDICAID ==
[2021-11-22 12:24] LABS: HEMATOCRIT 38.9 % (36.0-47.0); HEMOGLOBIN 12.5 g/dl (12.0-15.5); MEAN CORPUSCULAR HEMOGLOBIN 30.8 pg (27.0-33.0); MEAN CORPUSCULAR HGB CONC 32.1 g/dl (32.0-36.5); MEAN CORPUSCULAR VOLUME 95.8 fl (80.0-96.0); PLATELET COUNT, AUTOMATED 246 10^3/uL (150-450); RED BLOOD COUNT 4.06 10^6/uL (4.00-5.40); WHITE BLOOD COUNT 8.2 10^3/uL (4.0-10.0)
[2021-11-22 12:46] LABS: HEMOGLOBIN A1c 5.8 %
[2021-11-22 13:12] LABS: ALBUMIN 3.9 GM/DL (3.2-5.2); BILIRUBIN,TOTAL 0.4 MG/DL (0.2-1.0); CALCIUM LEVEL 10.3 MG/DL (8.8-10.2); CREATININE FOR GFR 1.19 MG/DL (0.55-1.30); FREE T4 0.97 NG/DL (0.76-1.46); GLOMERULAR FILTRATION RATE 46.6 (>39); MAGNESIUM LEVEL 1.7 MG/DL (1.8-2.4); PERCENT SATURATION 25.6 % (13.2-45.0); POTASSIUM SERUM 4.2 MEQ/L (3.5-5.1); THYROID STIMULATING HORMONE 1.03 uIU/ML (0.358-3.740); TOTAL PROTEIN 6.9 GM/DL (6.4-8.2); URIC ACID 4.7 MG/DL (2.6-6.0)
[2021-11-22 13:36] LABS: TOTAL 25(OH) VITAMIN D 56.6 NG/ML (30.0-100.0)
== END ==
LOC: M PLALAB 09:18
PROVIDERS: ATTEND Nurse Practitioner Adult Health
DX: R53.83 Other fatigue (principal); R53.81 Other malaise; R19.7 Diarrhea, unspecified; R79.0 Abnormal level of blood mineral; E55.9 Vitamin D deficiency, unspecified; M10.09 Idiopathic gout, multiple sites; Z13.29 Encounter for screening for other suspected endocrine disorder; Z79.899 Other long term (current) drug therapy

== ENCOUNTER → 2021-12-29 | Outpatient (CLI) | payer MEDICARE, MEDICAID ==
[~2021-12-29] MED LIST changes: +AMOX500C PO; +AZEL0.1S NARES; +BUSP10TA PO; +CULTCAP2 PO; +ERGO500029 PO; +FLON1SPR; +IPRAINH INH; +LIDO5OIN19 TOP; +LORA-674 PO; +MAGN400T2 PO; +MIRA3350 PO; +NITR100C2 PO; +NYST1POW9 TOP; +REFR0.5D8 OU; +REST0.05 OU; +TIZA2TA PO; +VALT1TAB PO; +VENTAER INH
[2021-12-29 13:26] LABS: APPEARANCE, URINE MANUAL HAZY (CLEAR); COLOR, URINE MANUAL YELLOW (YELLOW)
[2021-12-29 13:27] LABS: BILIRUBIN, URINE MANUAL NEGATIVE (NEGATIVE); GLUCOSE, URINE (UA) MANUAL NEGATIVE (NEGATIVE); KETONE, URINE MANUAL NEGATIVE (NEGATIVE); LEUKOCYTE ESTERASE, URINE MAN POSITIVE (NEGATIVE); NITRITE, URINE MANUAL NEGATIVE (NEGATIVE); PROTEIN, URINE MANUAL NEGATIVE (NEGATIVE); UROBILINOGEN, URINE MANUAL NORMAL (NORMAL)
[2021-12-29 13:28] LABS: BLOOD URINE MANUAL POSITIVE (NEGATIVE)
[2021-12-29 13:41] LABS: BASO # 0.1 10^3/uL (0.0-0.2); BASO % 0.7 % (0.0-1.0); EOS # 0.2 10^3/uL (0.0-0.5); EOS % 2.5 % (0.0-3.0); HEMATOCRIT 37.8 % (36.0-47.0); HEMOGLOBIN 12.5 g/dl (12.0-15.5); LYMPH # 2.4 10^3/uL (1.5-5.0); LYMPH % 29.6 % (24.0-44.0); MEAN CORPUSCULAR HEMOGLOBIN 31.9 pg (27.0-33.0); MEAN CORPUSCULAR HGB CONC 33.1 g/dl (32.0-36.5); MEAN CORPUSCULAR VOLUME 96.4 fl (80.0-96.0); MONO # 0.6 10^3/uL (0.0-0.8); MONO % 7.9 % (2.0-8.0); NEUTROPHILS # 4.7 10^3/uL (1.5-8.5); NEUTROPHILS % 58.9 % (36.0-66.0); PLATELET COUNT, AUTOMATED 237 10^3/uL (150-450); RED BLOOD COUNT 3.92 10^6/uL (4.00-5.40)
[2021-12-29 13:44] LABS: WBC, URINE TNTC /hpf (0-3)
[2021-12-29 13:45] LABS: BACTERIA, URINE LARGE AMOUNT; HYALINE CAST, URINE NONE SEEN /lpf (0-1); SQUAMOUS EPITHELIAL CELL URINE SMALL AMOUNT /hpf (SMALL AMT)
[2021-12-29 14:18] LABS: ALBUMIN 3.9 GM/DL (3.2-5.2); BILIRUBIN,TOTAL 0.5 MG/DL (0.2-1.0); CALCIUM LEVEL 9.6 MG/DL (8.8-10.2); CREATININE FOR GFR 1.33 MG/DL (0.55-1.30); FREE T4 1.2 NG/DL (0.76-1.46); MAGNESIUM LEVEL 1.8 MG/DL (1.8-2.4); POTASSIUM SERUM 4.3 MEQ/L (3.5-5.1); THYROID STIMULATING HORMONE 0.9 uIU/ML (0.358-3.740)
== END ==
LOC: M PLALAB 12:38
PROVIDERS: ATTEND Physician Assistant
DX: I95.9 Hypotension, unspecified (principal); R53.81 Other malaise; R53.83 Other fatigue; R55 Syncope and collapse; Z78.9 Other specified health status; Z79.899 Other long term (current) drug therapy; Z86.14 Personal history of Methicillin resistant Staphylococcus aureus infection; Z86.711 Personal history of pulmonary embolism

== ENCOUNTER 2022-01-01 20:45 | Inpatient (IN) | payer MEDICARE, MEDICAID ==
[~2022-01-01] VITALS: Ht 165.1 cm; Wt 86.7 kg
[~2022-01-01 20:45] MED LIST changes: -AMOX500C PO; -AZEL0.1S NARES; -BUSP10TA PO; -CULTCAP2 PO; -ERGO500029 PO; -FLON1SPR; -IPRAINH INH; -LIDO5OIN19 TOP; -LORA-674 PO; -MAGN400T2 PO; -MIRA3350 PO; -NITR100C2 PO; -NYST1POW9 TOP; -REFR0.5D8 OU; -REST0.05 OU; -TIZA2TA PO; -VALT1TAB PO; -VENTAER INH
[2022-01-01] MEDS ORDERED: IBUPROFEN 600MG TAB PO ONE (21:20)
[2022-01-01 23:06] LABS: BASO % 0.3 % (0.0-1.0); EOS % 0.2 % (0.0-3.0); HEMATOCRIT 38.6 % (36.0-47.0); HEMOGLOBIN 12.7 g/dl (12.0-15.5); LYMPH # 0.3 10^3/uL (1.5-5.0); MEAN CORPUSCULAR HEMOGLOBIN 31.7 pg (27.0-33.0); MEAN CORPUSCULAR HGB CONC 32.9 g/dl (32.0-36.5); MEAN CORPUSCULAR VOLUME 96.3 fl (80.0-96.0); MONO # 0.5 10^3/uL (0.0-0.8); NEUTROPHILS # 9.8 10^3/uL (1.5-8.5); PLATELET COUNT, AUTOMATED 213 10^3/uL (150-450); RED BLOOD COUNT 4.01 10^6/uL (4.00-5.40); WHITE BLOOD COUNT 10.8 10^3/uL (4.0-10.0)
[2022-01-01 23:31] LABS: ALBUMIN 3.9 GM/DL (3.2-5.2); ALT/SGPT 24 U/L (12-78); BILIRUBIN,DIRECT < 0.1 MG/DL (0.0-0.2); BILIRUBIN,TOTAL 0.4 MG/DL (0.2-1.0); BLOOD UREA NITROGEN 21 MG/DL (7-18); CALCIUM LEVEL 9.5 MG/DL (8.8-10.2); CARBON DIOXIDE LEVEL 27 MEQ/L (21-32); CHLORIDE LEVEL 104 MEQ/L (98-107); CREATININE FOR GFR 1.26 MG/DL (0.55-1.30); GLOMERULAR FILTRATION RATE 43.6 (>39); GLUCOSE, FASTING 156 MG/DL (70-100); LIPASE 149 U/L (73-393); POTASSIUM SERUM 4.5 MEQ/L (3.5-5.1); SODIUM LEVEL 138 MEQ/L (136-145)
[2022-01-01] MEDS ORDERED: NS 1,000 ML IV ONE (23:55)
[2022-01-02] MEDS ORDERED: cefTRIAXone SOD 2 GM in D5W MINI-BAG PLUS 50 ML IV ONE ×2
[2022-01-02] MEDS ORDERED: PERCOCET PO ×2 (02:37→02:46)
[2022-01-02] MEDS ORDERED: TIZA2TA PO (02:37)
[2022-01-02] MEDS ORDERED: ERGO500029 PO (02:37)
[2022-01-02] MEDS ORDERED: NITR100C2 PO (02:37)
[2022-01-02] MEDS ORDERED: GABA600T4 PO (02:37)
[2022-01-02] MEDS ORDERED: CULTCAP2 PO (02:37)
[2022-01-02] MEDS ORDERED: BUSP10TA PO (02:37)
[2022-01-02] MEDS ORDERED: REST0.05 OU (02:37)
[2022-01-02] MEDS ORDERED: CHLO125TA PO (02:37)
[2022-01-02] MEDS ORDERED: FLON1SPR (02:37)
[2022-01-02] MEDS ORDERED: LORA-674 PO (02:37)
[2022-01-02] MEDS ORDERED: MAGN400T2 PO (02:37)
[2022-01-02] MEDS ORDERED: AMOX500C PO (02:46)
[2022-01-02] MEDS ORDERED: VALT1TAB PO (02:46)
[2022-01-02] MEDS ORDERED: MIRA3350 PO (02:46)
[2022-01-02] MEDS ORDERED: LIDO5OIN19 TOP (02:46)
[2022-01-02] MEDS ORDERED: AZEL0.1S NARES (02:46)
[2022-01-02] MEDS ORDERED: IPRAINH INH (02:46)
[2022-01-02] MEDS ORDERED: REFR0.5D8 OU (02:46)
[2022-01-02] MEDS ORDERED: NYST1POW9 TOP (02:46)
[2022-01-02] MEDS ORDERED: VENTAER INH (02:46)
[2022-01-02] MEDS ORDERED: HOME MED LIST COMPLETE! XX SCH (02:50)
[2022-01-02] MEDS ORDERED: PERCOCET 5MG/325MG TAB PO PRN (03:25)
[2022-01-02] MEDS ORDERED: ALBUTEROL 90 MCG/ACT 8GM HFA INHALER INH PRN (03:25)
[2022-01-02] MEDS ORDERED: IPRATROPIUM HFA INHALER 12.9 GRAMS (ATROVENT HFA) INH PRN (03:25)
[2022-01-02] MEDS ORDERED: POLYVINYL ALCOHOL OPHTH SOLN 15 ML(LIQUITEARS) OU PRN (03:25)
[2022-01-02] MEDS: NS 1,000 ML IV SCH ×2 (04:10→13:02)
[2022-01-02] MEDS ORDERED: SODIUM CHLORIDE 0.9% 1000ML IV SCH (04:10)
[2022-01-02] MEDS ORDERED: ACETAMINOPHEN TAB 650MG DOSE (2X325MG) PO PRN (04:10)
[2022-01-02 05:30] VITALS: BP 110/58
[2022-01-02] MEDS ORDERED: GABAPENTIN 300 MG CAP PO SCH (09:00)
[2022-01-02] MEDS: HEPARIN SOD (PORCINE) 5000UNITS/ML 1ML VIAL/SYRINGE SC SCH ×2 (09:00→20:18)
[2022-01-02] MEDS: PANTOPRAZOLE 40MG TAB (PROTONIX) PO SCH (10:01)
[2022-01-02] MEDS: allopurinoL 100 MG TAB PO SCH (10:01)
[2022-01-02] MEDS: busPIRone 10 MG TAB PO SCH ×3 (10:01→20:20)
[2022-01-02] MEDS: PERCOCET 5MG/325MG TAB PO SCH ×3 (10:04→20:21)
[2022-01-02 14:00] VITALS: BP 133/70
[2022-01-02] MEDS: GABAPENTIN 300 MG CAP PO SCH ×3 (14:57→20:20)
[2022-01-02] MEDS: METOPROLOL SUCC (TopROL XL) 50MG **XL** TAB PO SCH (20:19)
[2022-01-02] MEDS: tiZANidine 4 MG TAB PO SCH (20:20)
[2022-01-02] MEDS: traZODone 25MG PER 1/2 TABLET PO SCH (20:20)
[2022-01-02] MEDS: CitaloPRAM (CeleXA) 10 MG TABLET PO SCH (20:21)
[2022-01-02 22:00] VITALS: BP 148/80
[2022-01-03] MEDS ORDERED: cefTRIAXone SOD 1 GM in D5W MINI-BAG PLUS 50 ML IV SCH ×2
[2022-01-03] MEDS: NS 1,000 ML IV SCH (05:26)
[2022-01-03 05:48] VITALS: BP 138/77
[2022-01-03 06:44] LABS: BASO # 0.1 10^3/uL (0.0-0.2); BASO % 0.6 % (0.0-1.0); EOS # 0.2 10^3/uL (0.0-0.5); EOS % 2.8 % (0.0-3.0); HEMATOCRIT 33.4 % (36.0-47.0); HEMOGLOBIN 11.1 g/dl (12.0-15.5); LYMPH # 1.7 10^3/uL (1.5-5.0); LYMPH % 21.2 % (24.0-44.0); MEAN CORPUSCULAR HEMOGLOBIN 32.2 pg (27.0-33.0); MEAN CORPUSCULAR HGB CONC 33.2 g/dl (32.0-36.5); MEAN CORPUSCULAR VOLUME 96.8 fl (80.0-96.0); MONO # 0.8 10^3/uL (0.0-0.8); MONO % 10.3 % (2.0-8.0); NEUTROPHILS # 5.3 10^3/uL (1.5-8.5); NEUTROPHILS % 64.6 % (36.0-66.0); PLATELET COUNT, AUTOMATED 183 10^3/uL (150-450); RED BLOOD COUNT 3.45 10^6/uL (4.00-5.40); WHITE BLOOD COUNT 8.1 10^3/uL (4.0-10.0)
[2022-01-03 07:41] LABS: BLOOD UREA NITROGEN 15 MG/DL (7-18); CALCIUM LEVEL 8.8 MG/DL (8.8-10.2); CARBON DIOXIDE LEVEL 26 MEQ/L (21-32); CHLORIDE LEVEL 105 MEQ/L (98-107); CREATININE FOR GFR 0.95 MG/DL (0.55-1.30); GLOMERULAR FILTRATION RATE > 60.0 (>39); GLUCOSE, FASTING 113 MG/DL (70-100); MAGNESIUM LEVEL 1.7 MG/DL (1.8-2.4); PHOSPHORUS LEVEL 2.5 MG/DL (2.5-4.9); POTASSIUM SERUM 4.2 MEQ/L (3.5-5.1); SODIUM LEVEL 138 MEQ/L (136-145)
[2022-01-03] MEDS ORDERED: MAGNESIUM OXIDE 400MG TAB (MAG-OX) PO ONE (08:35)
[2022-01-03] MEDS ORDERED: CEFD300C41 PO (08:38)
[2022-01-03] MEDS: allopurinoL 100 MG TAB PO SCH (09:00)
[2022-01-03] MEDS: HEPARIN SOD (PORCINE) 5000UNITS/ML 1ML VIAL/SYRINGE SC SCH ×2 (09:00→20:36)
[2022-01-03] MEDS: PERCOCET 5MG/325MG TAB PO SCH ×3 (09:01→20:37)
[2022-01-03] MEDS: GABAPENTIN 300 MG CAP PO SCH ×4 (09:01→20:37)
[2022-01-03] MEDS: PANTOPRAZOLE 40MG TAB (PROTONIX) PO SCH (09:02)
[2022-01-03] MEDS: busPIRone 10 MG TAB PO SCH ×3 (09:02→20:36)
[2022-01-03 14:00] VITALS: BP 145/72
[2022-01-03] MEDS ORDERED: BISACODYL 10 MG SUPP PR ONE (15:40)
[2022-01-03 20:00] VITALS: BP 150/89
[2022-01-03] MEDS: DOCUSATE SODIUM 100MG CAPSULE PO SCH (20:36)
[2022-01-03] MEDS: traZODone 25MG PER 1/2 TABLET PO SCH (20:36)
[2022-01-03] MEDS: tiZANidine 4 MG TAB PO SCH (20:36)
[2022-01-03] MEDS: CEFDINIR 300 MG CAP (OMNICEF) PO SCH (20:37)
[2022-01-03 20:39] VITALS: BP 150/80
[2022-01-03] MEDS: METOPROLOL SUCC (TopROL XL) 50MG **XL** TAB PO SCH (20:39)
[2022-01-03] MEDS: CitaloPRAM (CeleXA) 10 MG TABLET PO SCH (20:39)
[2022-01-03 22:00] VITALS: BP 128/66
[2022-01-04 05:52] VITALS: BP 124/67
[2022-01-04] MEDS: GABAPENTIN 300 MG CAP PO SCH (08:37)
[2022-01-04] MEDS: busPIRone 10 MG TAB PO SCH (08:37)
[2022-01-04] MEDS: DOCUSATE SODIUM 100MG CAPSULE PO SCH (08:37)
[2022-01-04] MEDS: PANTOPRAZOLE 40MG TAB (PROTONIX) PO SCH (08:37)
[2022-01-04] MEDS: PERCOCET 5MG/325MG TAB PO SCH (08:37)
[2022-01-04] MEDS: allopurinoL 100 MG TAB PO SCH (08:37)
[2022-01-04] MEDS: CEFDINIR 300 MG CAP (OMNICEF) PO SCH (08:37)
[2022-01-04] MEDS: HEPARIN SOD (PORCINE) 5000UNITS/ML 1ML VIAL/SYRINGE SC SCH (08:38)
== END 2022-01-04 13:19 | DRG 690 ==
LOC: M ED 20:45 → EDBD 20:45 → M ED INP 01-02 04:08 → ENRESERV 01-02 04:47 → M MSPAV 01-02 05:20
PROVIDERS: ADMIT Internal Medicine; ATTEND Internal Medicine
DX: N39.0 Urinary tract infection, site not specified (principal); F11.20 Opioid dependence, uncomplicated; K52.1 Toxic gastroenteritis and colitis; R51.9 Headache, unspecified; M54.9 Dorsalgia, unspecified; N18.30 Chronic kidney disease, stage 3 unspecified; R33.9 Retention of urine, unspecified; I48.91 Unspecified atrial fibrillation; M10.9 Gout, unspecified; G89.29 Other chronic pain; T37.8X5A Adverse effect of other specified systemic anti-infectives and antiparasitics, initial encounter; M79.605 Pain in left leg; R00.0 Tachycardia, unspecified; Z79.899 Other long term (current) drug therapy; Z88.5 Allergy status to narcotic agent; Z88.8 Allergy status to other drugs, medicaments and biological substances; Z91.041 Radiographic dye allergy status; Z91.040 Latex allergy status; Z86.718 Personal history of other venous thrombosis and embolism; Z87.442 Personal history of urinary calculi

== ENCOUNTER → 2022-01-17 | Outpatient (REF) | payer MEDICARE, MEDICAID ==
[~2022-01-17] MED LIST changes: +AMOX500C PO; +AZEL0.1S NARES; +BUSP10TA PO; +CULTCAP2 PO; +ERGO500029 PO; +FLON1SPR; +IPRAINH INH; +LIDO5OIN19 TOP; +LORA-674 PO; +MAGN400T2 PO; +MIRA3350 PO; +NITR100C2 PO; +NYST1POW9 TOP; +REFR0.5D8 OU; +REST0.05 OU; +TIZA2TA PO; +VALT1TAB PO; +VENTAER INH
== END ==
PROVIDERS: ATTEND Urology
DX: N32.81 Overactive bladder (principal); N39.0 Urinary tract infection, site not specified

== ENCOUNTER → 2022-02-08 | Outpatient (REF) | payer MEDICARE, MEDICAID | PROVIDERS: ATTEND Nurse Practitioner Adult Health | DX: Z20.822 Contact with and (suspected) exposure to COVID-19 (principal) ==

== ENCOUNTER → 2022-03-04 | Outpatient (CLI) | payer MEDICARE, MEDICAID ==
[2022-03-04 13:57] LABS: HEMOGLOBIN 12.4 g/dl (12.0-15.5); MEAN CORPUSCULAR HEMOGLOBIN 32.2 pg (27.0-33.0); MEAN CORPUSCULAR HGB CONC 33.5 g/dl (32.0-36.5); MEAN CORPUSCULAR VOLUME 96.1 fl (80.0-96.0); PLATELET COUNT, AUTOMATED 253 10^3/uL (150-450); RED BLOOD COUNT 3.85 10^6/uL (4.00-5.40); WHITE BLOOD COUNT 9.2 10^3/uL (4.0-10.0)
[2022-03-04 14:48] LABS: CALCIUM LEVEL 10.3 MG/DL (8.8-10.2); CREATININE FOR GFR 1.24 MG/DL (0.55-1.30); GLOMERULAR FILTRATION RATE 44.4 (>39); POTASSIUM SERUM 4.3 MEQ/L (3.5-5.1)
[2022-03-04 15:16] LABS: CK-MB VALUE MASS < 1.0 NG/ML (<3.6); CPK CREATINE PHOSPHOKINASE 80 U/L (26-192); MB/CK RELATIVE INDEX 1.25 (< OR =4)
== END ==
LOC: M PLALAB 10:25
PROVIDERS: ATTEND Physician Assistant
DX: I51.7 Cardiomegaly (principal); R06.02 Shortness of breath; R07.2 Precordial pain

== ENCOUNTER → 2022-04-12 | Outpatient (REF) | payer MEDICARE, MEDICAID | PROVIDERS: ATTEND Physician Assistant | DX: R82.90 Unspecified abnormal findings in urine (principal) ==

== ENCOUNTER → 2022-05-04 | Outpatient (REF) | payer MEDICARE, MEDICAID ==
[2022-05-04 11:11] LABS: APPEARANCE, URINE MANUAL CLEAR (CLEAR); COLOR, URINE MANUAL YELLOW (YELLOW)
[2022-05-04 11:12] LABS: BILIRUBIN, URINE MANUAL NEGATIVE (NEGATIVE); BLOOD URINE MANUAL TRACE (NEGATIVE); GLUCOSE, URINE (UA) MANUAL NEGATIVE (NEGATIVE); KETONE, URINE MANUAL NEGATIVE (NEGATIVE); LEUKOCYTE ESTERASE, URINE MAN NEGATIVE (NEGATIVE); NITRITE, URINE MANUAL NEGATIVE (NEGATIVE); PROTEIN, URINE MANUAL NEGATIVE (NEGATIVE); UROBILINOGEN, URINE MANUAL NORMAL (NORMAL)
[2022-05-04 11:26] LABS: BASO # 0.1 10^3/uL (0.0-0.2); BASO % 0.7 % (0.0-1.0); EOS # 0.3 10^3/uL (0.0-0.5); EOS % 3.6 % (0.0-3.0); HEMATOCRIT 34.9 % (36.0-47.0); HEMOGLOBIN 11.3 g/dl (12.0-15.5); LYMPH # 2.3 10^3/uL (1.5-5.0); LYMPH % 29.9 % (24.0-44.0); MEAN CORPUSCULAR HEMOGLOBIN 31.5 pg (27.0-33.0); MEAN CORPUSCULAR HGB CONC 32.4 g/dl (32.0-36.5); MEAN CORPUSCULAR VOLUME 97.2 fl (80.0-96.0); MONO # 0.6 10^3/uL (0.0-0.8); MONO % 8.2 % (2.0-8.0); NEUTROPHILS # 4.4 10^3/uL (1.5-8.5); NEUTROPHILS % 57.1 % (36.0-66.0); PLATELET COUNT, AUTOMATED 225 10^3/uL (150-450); RED BLOOD COUNT 3.59 10^6/uL (4.00-5.40); WHITE BLOOD COUNT 7.7 10^3/uL (4.0-10.0)
[2022-05-04 11:43] LABS: CREATININE, URINE 111.6 MG/DL; MAU/CREAT RATIO 3.5 MCG/MG (0.0-30.0)
[2022-05-04 11:46] LABS: WBC, URINE 15-20 /hpf (0-3)
[2022-05-04 11:47] LABS: BACTERIA, URINE LARGE AMOUNT; HYALINE CAST, URINE NONE SEEN /lpf (0-1); RBC, URINE 0-1 /hpf (0-3); SQUAMOUS EPITHELIAL CELL URINE MOD AMOUNT /hpf (SMALL AMT)
[2022-05-04 11:48] LABS: MUCUS, URINE MOD AMOUNT (NEGATIVE)
[2022-05-04 11:59] LABS: ALBUMIN 3.7 G/DL (3.2-5.2); CALCIUM LEVEL 9.3 MG/DL (8.3-10.6); CREATININE FOR GFR 1.28 MG/DL (0.55-1.30); GLOMERULAR FILTRATION RATE 42.7 (>32); PHOSPHORUS LEVEL 4.1 MG/DL (2.4-5.1); POTASSIUM SERUM 3.9 MMOL/L (3.5-5.1)
== END ==
PROVIDERS: ATTEND Internal Medicine Nephrology
DX: N18.32 Chronic kidney disease, stage 3b (principal); E11.22 Type 2 diabetes mellitus with diabetic chronic kidney disease

== ENCOUNTER → 2022-06-01 | Outpatient (CLI) | payer MEDICARE, MEDICAID ==
[~2022-06-01] MED LIST changes: +ENAL1TAB48 PO; -ENAL5TA PO
== END ==
LOC: M RAD 08:46
PROVIDERS: ATTEND Internal Medicine Nephrology
DX: N18.32 Chronic kidney disease, stage 3b (principal); I70.1 Atherosclerosis of renal artery

== ENCOUNTER → 2022-06-16 | Outpatient (REF) | payer MEDICARE, MEDICAID | PROVIDERS: ATTEND Nurse Practitioner Adult Health | DX: R19.7 Diarrhea, unspecified (principal) ==

== ENCOUNTER → 2022-07-06 | Outpatient (REF) | payer MEDICARE, MEDICAID ==
[2022-07-06 11:48] LABS: HEMATOCRIT 36.8 % (36.0-47.0); HEMOGLOBIN 12.1 g/dl (12.0-15.5); MEAN CORPUSCULAR HEMOGLOBIN 31.7 pg (27.0-33.0); MEAN CORPUSCULAR HGB CONC 32.9 g/dl (32.0-36.5); MEAN CORPUSCULAR VOLUME 96.3 fl (80.0-96.0); PLATELET COUNT, AUTOMATED 241 10^3/uL (150-450); RED BLOOD COUNT 3.82 10^6/uL (4.00-5.40); WHITE BLOOD COUNT 9.9 10^3/uL (4.0-10.0)
[2022-07-06 12:00] LABS: HEMOGLOBIN A1c 5.7 % (4.0-6.0)
[2022-07-06 12:09] LABS: ALBUMIN 3.7 G/DL (3.2-5.2); ALKALINE PHOSPHATASE 89 U/L (46-116); ALT/SGPT 15 U/L (7.0-40); AST/SGOT 12 U/L (<34); BILIRUBIN,TOTAL 0.2 MG/DL (0.3-1.2); BLOOD UREA NITROGEN 20 MG/DL (9-23); CALCIUM LEVEL 9.3 MG/DL (8.3-10.6); CARBON DIOXIDE LEVEL 26 MMOL/L (20-31); CHLORIDE LEVEL 110 MMOL/L (98-107); CHOLESTEROL LEVEL 201 MG/DL (<200); CHOLESTEROL RISK RATIO 8.04 (<5); CREATININE FOR GFR 1.08 MG/DL (0.55-1.30); GLUCOSE, FASTING 104 MG/DL (74-106); MAGNESIUM LEVEL 1.2 MG/DL (1.8-2.4); POTASSIUM SERUM 3.7 MMOL/L (3.5-5.1); SODIUM LEVEL 141 MMOL/L (136-145); TOTAL PROTEIN 6.3 G/DL (5.7-8.2); TRIGLYCERIDES LEVEL 574 MG/DL (<150)
[2022-07-06 12:10] LABS: VITAMIN B12 LEVEL 1586 PG/ML (211-911)
[2022-07-06 12:11] LABS: THYROID STIMULATING HORMONE 1.659 uIU/ML (0.55-4.78); TOTAL 25(OH) VITAMIN D 71.4 NG/ML (20.0-100.0)
== END ==
PROVIDERS: ATTEND Nurse Practitioner Adult Health
DX: E53.8 Deficiency of other specified B group vitamins (principal); M10.09 Idiopathic gout, multiple sites; Z13.29 Encounter for screening for other suspected endocrine disorder; Z13.220 Encounter for screening for lipoid disorders; Z79.899 Other long term (current) drug therapy

== ENCOUNTER → 2022-08-12 | Outpatient (REF) | payer MEDICARE, MEDICAID ==
[2022-08-12 08:56] LABS: BASO # 0.1 10^3/uL (0.0-0.2); BASO % 0.8 % (0.0-1.0); EOS # 0.3 10^3/uL (0.0-0.5); EOS % 3.2 % (0.0-3.0); HEMATOCRIT 36.9 % (36.0-47.0); LYMPH # 2.7 10^3/uL (1.5-5.0); LYMPH % 29.5 % (24.0-44.0); MEAN CORPUSCULAR HEMOGLOBIN 30.7 pg (27.0-33.0); MEAN CORPUSCULAR HGB CONC 32.5 g/dl (32.0-36.5); MEAN CORPUSCULAR VOLUME 94.4 fl (80.0-96.0); MONO # 0.8 10^3/uL (0.0-0.8); MONO % 9.1 % (2.0-8.0); NEUTROPHILS # 5.2 10^3/uL (1.5-8.5); NEUTROPHILS % 57.1 % (36.0-66.0); PLATELET COUNT, AUTOMATED 271 10^3/uL (150-450); RED BLOOD COUNT 3.91 10^6/uL (4.00-5.40); WHITE BLOOD COUNT 9.2 10^3/uL (4.0-10.0)
[2022-08-12 09:34] LABS: ALBUMIN 3.6 G/DL (3.2-5.2); CALCIUM LEVEL 9.9 MG/DL (8.3-10.6); CREATININE FOR GFR 1.08 MG/DL (0.55-1.30); POTASSIUM SERUM 3.5 MMOL/L (3.5-5.1); PTH INTACT 64.8 PG/ML (18.5-88.0)
[2022-08-12 09:36] LABS: TOTAL 25(OH) VITAMIN D 73.1 NG/ML (20.0-100.0)
== END ==
PROVIDERS: ATTEND Internal Medicine Nephrology
DX: N18.32 Chronic kidney disease, stage 3b (principal); E11.22 Type 2 diabetes mellitus with diabetic chronic kidney disease; D63.1 Anemia in chronic kidney disease; N25.81 Secondary hyperparathyroidism of renal origin; E55.9 Vitamin D deficiency, unspecified

== ENCOUNTER → 2022-08-22 | Outpatient (REF) | payer MEDICARE, MEDICAID ==
[2022-08-22 18:11] LABS: APPEARANCE, URINE HAZY (CLEAR); BACTERIA, URINE AUTO 2+ (NEGATIVE); BILIRUBIN, URINE AUTO NEGATIVE (NEGATIVE); BLOOD, URINE BLOOD 1+ (NEGATIVE); COLOR, URINE YELLOW (YELLOW); GLUCOSE, URINE (UA) AUTO NEGATIVE (NEGATIVE); KETONE, URINE AUTO NEGATIVE (NEGATIVE); LEUKOCYTE ESTERASE, URINE AUTO 3+ (NEGATIVE); MUCUS, URINE SMALL (NEGATIVE); NITRITE, URINE AUTO POSITIVE (NEGATIVE); PROTEIN, URINE AUTO 1+ mg/dL (NEGATIVE); RBC, URINE AUTO 5 /HPF (0-3); SPECIFIC GRAVITY URINE AUTO 1.021 (1.002-1.035); SQUAMOUS EPITHELIAL CELL UR AU 1 /HPF (0-6); UROBILINOGEN, URINE AUTO 0.2 mg/dL (0.0-2.0); WBC, URINE AUTO 56 /HPF (0-3)
== END ==
LOC: M LAB REF 16:52
PROVIDERS: ATTEND Urology
DX: N39.0 Urinary tract infection, site not specified (principal)

== ENCOUNTER → 2022-12-12 | Outpatient (REF) | payer MEDICARE, MEDICAID ==
[~2022-12-12] MED LIST changes: -GABA-283 PO; +GABA-284 PO
[2022-12-12 08:25] LABS: BASO # 0.1 10^3/uL (0.0-0.2); BASO % 0.6 % (0.0-1.0); EOS # 0.2 10^3/uL (0.0-0.5); EOS % 2.8 % (0.0-3.0); HEMATOCRIT 36.1 % (36.0-47.0); HEMOGLOBIN 11.8 g/dl (12.0-15.5); LYMPH # 2.6 10^3/uL (1.5-5.0); MEAN CORPUSCULAR HEMOGLOBIN 30.3 pg (27.0-33.0); MEAN CORPUSCULAR HGB CONC 32.7 g/dl (32.0-36.5); MEAN CORPUSCULAR VOLUME 92.6 fl (80.0-96.0); MONO # 0.7 10^3/uL (0.0-0.8); NEUTROPHILS # 4.1 10^3/uL (1.5-8.5); NEUTROPHILS % 53.3 % (36.0-66.0); PLATELET COUNT, AUTOMATED 229 10^3/uL (150-450); WHITE BLOOD COUNT 7.7 10^3/uL (4.0-10.0)
[2022-12-12 09:11] LABS: ALBUMIN 3.3 G/DL (3.2-5.2); CALCIUM LEVEL 9.3 MG/DL (8.3-10.6); CREATININE FOR GFR 1.13 MG/DL (0.55-1.30); GLOMERULAR FILTRATION RATE 49.3 (>32); PHOSPHORUS LEVEL 3.7 MG/DL (2.4-5.1); POTASSIUM SERUM 3.9 MMOL/L (3.5-5.1); PTH INTACT 45.9 PG/ML (18.5-88.0)
[2022-12-12 09:14] LABS: TOTAL 25(OH) VITAMIN D 59.2 NG/ML (20.0-100.0)
== END ==
PROVIDERS: ATTEND Internal Medicine Nephrology
DX: N18.32 Chronic kidney disease, stage 3b (principal); E11.22 Type 2 diabetes mellitus with diabetic chronic kidney disease; D63.1 Anemia in chronic kidney disease; E55.9 Vitamin D deficiency, unspecified

== ENCOUNTER → 2022-12-14 | Outpatient (CLI) | payer MEDICARE, MEDICAID | LOC: M PLAIMG 09:57 | PROVIDERS: ATTEND Pain Medicine Interventional Pain Medicine | DX: M54.16 Radiculopathy, lumbar region (principal) ==

== ENCOUNTER → 2022-12-16 | Outpatient (REF) | payer MEDICARE, MEDICAID ==
[2022-12-16 14:08] LABS: APPEARANCE, URINE HAZY (CLEAR); BACTERIA, URINE AUTO 1+ (NEGATIVE); BILIRUBIN, URINE AUTO NEGATIVE (NEGATIVE); BLOOD, URINE BLOOD 1+ (NEGATIVE); COLOR, URINE YELLOW (YELLOW); GLUCOSE, URINE (UA) AUTO NEGATIVE (NEGATIVE); KETONE, URINE AUTO NEGATIVE (NEGATIVE); LEUKOCYTE ESTERASE, URINE AUTO 3+ (NEGATIVE); NITRITE, URINE AUTO POSITIVE (NEGATIVE); PROTEIN, URINE AUTO NEGATIVE (NEGATIVE); RBC, URINE AUTO 1 /HPF (0-3); SPECIFIC GRAVITY URINE AUTO 1.011 (1.002-1.035); SQUAMOUS EPITHELIAL CELL UR AU 2 /HPF (0-6); UROBILINOGEN, URINE AUTO 0.2 mg/dL (0.0-2.0); WBC, URINE AUTO 63 /HPF (0-3)
== END ==
PROVIDERS: ATTEND Nurse Practitioner Adult Health
DX: N18.32 Chronic kidney disease, stage 3b (principal); E11.22 Type 2 diabetes mellitus with diabetic chronic kidney disease; N25.81 Secondary hyperparathyroidism of renal origin; E55.9 Vitamin D deficiency, unspecified; D63.1 Anemia in chronic kidney disease; Z79.899 Other long term (current) drug therapy

== ENCOUNTER → 2023-01-04 | Outpatient (REF) | payer MEDICARE, MEDICAID ==
[~2023-01-04] MED LIST changes: +LORA-1041 PO; -LORA-674 PO
[2023-01-04 11:09] LABS: HEMOGLOBIN 12.6 g/dl (12.0-15.5); MEAN CORPUSCULAR HEMOGLOBIN 30.1 pg (27.0-33.0); MEAN CORPUSCULAR HGB CONC 32.3 g/dl (32.0-36.5); MEAN CORPUSCULAR VOLUME 93.1 fl (80.0-96.0); PLATELET COUNT, AUTOMATED 269 10^3/uL (150-450); RED BLOOD COUNT 4.19 10^6/uL (4.00-5.40); WHITE BLOOD COUNT 8.5 10^3/uL (4.0-10.0)
[2023-01-04 11:36] LABS: THYROID STIMULATING HORMONE 1.218 uIU/ML (0.55-4.78)
[2023-01-04 11:37] LABS: TOTAL 25(OH) VITAMIN D 72.7 NG/ML (20.0-100.0); VITAMIN B12 LEVEL 1388 PG/ML (211-911)
[2023-01-04 11:38] LABS: ALBUMIN 3.7 G/DL (3.2-5.2); ALKALINE PHOSPHATASE 80 U/L (46-116); ALT/SGPT 15 U/L (7.0-40); AST/SGOT < 8 U/L (<34); BILIRUBIN,TOTAL 0.3 MG/DL (0.3-1.2); BLOOD UREA NITROGEN 21 MG/DL (9-23); CALCIUM LEVEL 9.6 MG/DL (8.3-10.6); CARBON DIOXIDE LEVEL 29 MMOL/L (20-31); CHLORIDE LEVEL 102 MMOL/L (98-107); CHOLESTEROL LEVEL 227 MG/DL (<200); CHOLESTEROL RISK RATIO 7.56 (<5); CREATININE FOR GFR 1.13 MG/DL (0.55-1.30); GLOMERULAR FILTRATION RATE 49.3 (>32); GLUCOSE, FASTING 134 MG/DL (74-106); LDL CHOLESTEROL 119.8 MG/DL (<100); MAGNESIUM LEVEL 1.6 MG/DL (1.8-2.4); POTASSIUM SERUM 3.9 MMOL/L (3.5-5.1); SODIUM LEVEL 139 MMOL/L (136-145); TOTAL PROTEIN 6.5 G/DL (5.7-8.2); TRIGLYCERIDES LEVEL 386 MG/DL (<150)
[2023-01-04 11:44] LABS: HEMOGLOBIN A1c 6.3 % (4.0-6.0)
[2023-01-07 18:54] LABS: URIC ACID 4.1 MG/DL (3.1-7.8)
== END ==
PROVIDERS: ATTEND Nurse Practitioner Adult Health
DX: R19.7 Diarrhea, unspecified (principal); I10 Essential (primary) hypertension; E53.8 Deficiency of other specified B group vitamins; M10.9 Gout, unspecified; E55.9 Vitamin D deficiency, unspecified; R79.0 Abnormal level of blood mineral; Z13.220 Encounter for screening for lipoid disorders; Z13.29 Encounter for screening for other suspected endocrine disorder; Z79.899 Other long term (current) drug therapy

== ENCOUNTER → 2023-01-05 | Outpatient (CLI) | payer MEDICARE, MEDICAID | LOC: M SOG 09:39 | PROVIDERS: ATTEND Physician Assistant | DX: M17.12 Unilateral primary osteoarthritis, left knee (principal); M11.262 Other chondrocalcinosis, left knee ==

== ENCOUNTER → 2023-01-06 | Outpatient (REF) | payer MEDICARE, MEDICAID | PROVIDERS: ATTEND Physician Assistant | DX: R82.90 Unspecified abnormal findings in urine (principal) ==

== ENCOUNTER → 2023-01-16 | Outpatient (REF) | payer MEDICARE, MEDICAID ==
[~2023-01-16] MED LIST changes: +AMLO25TA PO; +CEFD300C42 PO; +COLA100C5 PO; +DULC10SU2 PR; +ELIQ5TAB PO; +MACR50CA10 PO; +MYLA1SUS PO; +ONDA-83 PO; +SENN-186 PO; +SENN-52 PO; +SPIR-10 PO
== END ==
PROVIDERS: ATTEND Nurse Practitioner Adult Health
DX: I50.9 Heart failure, unspecified (principal); I13.0 Hypertensive heart and chronic kidney disease with heart failure and stage 1 through stage 4 chronic kidney disease, or unspecified chronic kidney disease; N18.9 Chronic kidney disease, unspecified; Z53.8 Procedure and treatment not carried out for other reasons

== ENCOUNTER 2023-02-03 08:31 | Observation (INO) | payer MEDICARE, MEDICAID ==
[~2023-02-03] VITALS: Ht 165.1 cm; Wt 87.5 kg
[~2023-02-03 08:31] MED LIST changes: -AMLO25TA PO; -COLA100C5 PO; -DULC10SU2 PR; -ELIQ5TAB PO; -MACR50CA10 PO; -MYLA1SUS PO; -ONDA-83 PO; -SENN-186 PO; -SENN-52 PO; -SPIR-10 PO
[2023-02-03] MEDS ORDERED: MACR50CA10 PO (08:59)
[2023-02-03] MEDS ORDERED: SPIR-10 PO (08:59)
[2023-02-03 10:02] LABS: BASO # 0.1 10^3/uL (0.0-0.2); BASO % 0.5 % (0.0-1.0); EOS # 0.2 10^3/uL (0.0-0.5); EOS % 1.9 % (0.0-3.0); HEMATOCRIT 37.6 % (36.0-47.0); HEMOGLOBIN 12.4 g/dl (12.0-15.5); LYMPH # 1.6 10^3/uL (1.5-5.0); MONO # 0.7 10^3/uL (0.0-0.8); MONO % 7.4 % (2.0-8.0); NEUTROPHILS # 6.9 10^3/uL (1.5-8.5); NEUTROPHILS % 72.8 % (36.0-66.0); PLATELET COUNT, AUTOMATED 248 10^3/uL (150-450); WHITE BLOOD COUNT 9.5 10^3/uL (4.0-10.0)
[2023-02-03 10:12] LABS: INR 1.03; PROTHROMBIN TIME 13.2 SECONDS (12.5-14.5)
[2023-02-03 10:13] LABS: PARTIAL THROMBOPLASTIN TIME 27.8 SECONDS (24.8-34.2)
[2023-02-03 10:30] LABS: LIPASE 37 U/L (12-53)
[2023-02-03 10:32] LABS: ALBUMIN 3.5 G/DL (3.2-5.2); ALKALINE PHOSPHATASE 77 U/L (46-116); ALT/SGPT 12 U/L (7.0-40); AMYLASE 91 U/L (30-118); AST/SGOT 14 U/L (<34); BILIRUBIN,DIRECT < 0.1 MG/DL (<0.4); BILIRUBIN,TOTAL 0.3 MG/DL (0.3-1.2); BLOOD UREA NITROGEN 20 MG/DL (9-23); CALCIUM LEVEL 9.8 MG/DL (8.3-10.6); CARBON DIOXIDE LEVEL 29 MMOL/L (20-31); CHLORIDE LEVEL 102 MMOL/L (98-107); CK-MB VALUE MASS < 1.0 NG/ML (<3.6); CREATININE FOR GFR 1.04 MG/DL (0.55-1.30); GLOMERULAR FILTRATION RATE 54.3 (>32); GLUCOSE, FASTING 115 MG/DL (74-106); POTASSIUM SERUM 4.2 MMOL/L (3.5-5.1); SODIUM LEVEL 139 MMOL/L (136-145); TOTAL PROTEIN 6.3 G/DL (5.7-8.2)
[2023-02-03 10:48] LABS: CPK CREATINE PHOSPHOKINASE 70 U/L (34-145); MB/CK RELATIVE INDEX 1.42 (< OR =4)
[2023-02-03] MEDS ORDERED: PERCOCET 5MG/325MG TAB PO ONE (12:40)
[2023-02-03] MEDS ORDERED: MED REC IN PROGRESS XX SCH (16:00)
[2023-02-03] MEDS ORDERED: MOM 30ML SUSPENSION UDC PO PRN (17:00)
[2023-02-03] MEDS: ACETAMINOPHEN TAB 650MG DOSE (2X325MG) PO PRN (17:14)
[2023-02-03] MEDS ORDERED: MAGNESIUM CITRATE 300ML BTL PO ONE (17:15)
[2023-02-03] MEDS: PERCOCET 5MG/325MG TAB PO PRN (17:42)
[2023-02-03] MEDS: NS 1,000 ML IV SCH (17:42)
[2023-02-03] MEDS ORDERED: MED REC CURRENTLY UNOBTAINABLE XX SCH (18:10)
[2023-02-03 18:30] VITALS: BP 159/89; TEMP 97.9; O2SAT 97
[2023-02-03] MEDS ORDERED: PERCOCET PO (20:06)
[2023-02-03] MEDS ORDERED: AMLO25TA PO (20:06)
[2023-02-03] MEDS ORDERED: MYLA1SUS PO (20:06)
[2023-02-03] MEDS ORDERED: ONDA-83 PO (20:06)
[2023-02-03 20:09] VITALS: BP 143/89; TEMP 99.3; O2SAT 93
[2023-02-03] MEDS ORDERED: HOME MED LIST COMPLETE! XX SCH (20:10)
[2023-02-03] MEDS: SENOKOT S TAB PO SCH (21:00)
[2023-02-03] MEDS: DOCUSATE SODIUM 100MG CAPSULE PO SCH (21:00)
[2023-02-03] MEDS: BISACODYL 10MG SUPP PR SCH (21:00)
[2023-02-03] MEDS: ONDANSETRON 4MG 2ML VIAL IV PRN (21:00)
[2023-02-04] MEDS: ONDANSETRON 4MG 2ML VIAL IV PRN ×3 (03:08→18:13)
[2023-02-04] MEDS: ACETAMINOPHEN TAB 650MG DOSE (2X325MG) PO PRN ×3 (03:15→17:11)
[2023-02-04 04:36] VITALS: BP 162/87; TEMP 98.1; O2SAT 93
[2023-02-04] MEDS: NS 1,000 ML IV SCH ×2 (06:25→21:12)
[2023-02-04] MEDS: PERCOCET 5MG/325MG TAB PO PRN ×2 (06:27→21:14)
[2023-02-04 06:37] LABS: BLOOD UREA NITROGEN 18 MG/DL (9-23); CALCIUM LEVEL 9.4 MG/DL (8.3-10.6); CARBON DIOXIDE LEVEL 29 MMOL/L (20-31); CHLORIDE LEVEL 100 MMOL/L (98-107); CREATININE FOR GFR 0.88 MG/DL (0.55-1.30); GLOMERULAR FILTRATION RATE > 60.0 (>32); GLUCOSE, FASTING 183 MG/DL (74-106); MAGNESIUM LEVEL 1.6 MG/DL (1.8-2.4); SODIUM LEVEL 137 MMOL/L (136-145)
[2023-02-04] MEDS ORDERED: ALBUTEROL 90 MCG/ACT 8GM HFA INHALER INH PRN (07:55)
[2023-02-04] MEDS: GABAPENTIN 300 MG CAP PO SCH ×4 (08:52→21:13)
[2023-02-04] MEDS: allopurinoL 100 MG TAB PO SCH (08:53)
[2023-02-04] MEDS: busPIRone 10 MG TAB PO SCH ×3 (08:53→21:13)
[2023-02-04] MEDS: METOPROLOL SUCC (TopROL XL) 50MG **XL** TAB PO SCH (08:53)
[2023-02-04] MEDS: SENOKOT S TAB PO SCH ×2 (08:53→21:13)
[2023-02-04] MEDS: DOCUSATE SODIUM 100MG CAPSULE PO SCH ×2 (08:53→21:13)
[2023-02-04] MEDS: CYANOCOBALAMIN 500 MCG TAB PO SCH (08:53)
[2023-02-04] MEDS: ENOXAPARIN 40MG/0.4ML SYRINGE (J1650 PER 10MG) SC SCH (08:54)
[2023-02-04] MEDS: BISACODYL 10MG SUPP PR SCH ×2 (09:00→21:16)
[2023-02-04] MEDS ORDERED: MAG SULF 1GM/100ML (MAG RUN) 1 GM in IV 1 EA IV ONE (09:00)
[2023-02-04 14:00] VITALS: BP 139/75; TEMP 98.1; O2SAT 95
[2023-02-04] MEDS: CitaloPRAM (CeleXA) 10 MG TABLET PO SCH (21:13)
[2023-02-04 21:49] VITALS: BP 146/73; TEMP 98.2; O2SAT 95
[2023-02-05] MEDS: ACETAMINOPHEN TAB 650MG DOSE (2X325MG) PO PRN (02:42)
[2023-02-05 05:58] VITALS: BP 150/67; TEMP 98.7; O2SAT 94
[2023-02-05] MEDS: BISACODYL 10MG SUPP PR SCH (08:32)
[2023-02-05] MEDS: DOCUSATE SODIUM 100MG CAPSULE PO SCH ×2 (08:32→20:37)
[2023-02-05] MEDS: SENOKOT S TAB PO SCH ×2 (08:32→20:37)
[2023-02-05] MEDS: GABAPENTIN 300 MG CAP PO SCH ×4 (08:53→20:37)
[2023-02-05] MEDS: CYANOCOBALAMIN 500 MCG TAB PO SCH (08:54)
[2023-02-05] MEDS: METOPROLOL SUCC (TopROL XL) 50MG **XL** TAB PO SCH (08:54)
[2023-02-05] MEDS: allopurinoL 100 MG TAB PO SCH (08:54)
[2023-02-05] MEDS: busPIRone 10 MG TAB PO SCH ×3 (08:54→20:38)
[2023-02-05] MEDS: PERCOCET 5MG/325MG TAB PO PRN ×2 (08:57→20:38)
[2023-02-05] MEDS: ENOXAPARIN 40MG/0.4ML SYRINGE (J1650 PER 10MG) SC SCH (09:03)
[2023-02-05] MEDS ORDERED: PROMETHAZINE 25MG/ML 1ML VIAL IV PRN (09:35)
[2023-02-05] MEDS: APIXABAN 5 MG TAB (ELIQUIS) PO SCH ×2 (10:42→20:38)
[2023-02-05] MEDS: PANTOPRAZOLE 40MG TAB (PROTONIX) PO SCH (10:44)
[2023-02-05] MEDS: CHLORASEPTIC SPRAY MT SCH ×2 (11:27→20:54)
[2023-02-05 14:00] VITALS: BP 140/73; TEMP 98.2; O2SAT 94
[2023-02-05] MEDS ORDERED: ALBUTEROL SULFATE 2.5MG/0.5ML INH NEB SOLN NEB ONE (14:30)
[2023-02-05] MEDS: CitaloPRAM (CeleXA) 10 MG TABLET PO SCH (20:38)
[2023-02-06] MEDS: PROMETHAZINE 25 MG TAB PO PRN ×2 (01:44→13:20)
[2023-02-06 06:00] VITALS: BP 162/69; TEMP 97.7; O2SAT 94
[2023-02-06] MEDS: APIXABAN 5 MG TAB (ELIQUIS) PO SCH ×2 (07:56→20:13)
[2023-02-06] MEDS: SENOKOT S TAB PO SCH ×2 (07:56→19:40)
[2023-02-06] MEDS: DOCUSATE SODIUM 100MG CAPSULE PO SCH ×2 (07:56→19:40)
[2023-02-06] MEDS: CYANOCOBALAMIN 500 MCG TAB PO SCH (07:56)
[2023-02-06] MEDS: GABAPENTIN 300 MG CAP PO SCH ×4 (07:57→20:13)
[2023-02-06] MEDS: PANTOPRAZOLE 40MG TAB (PROTONIX) PO SCH (07:57)
[2023-02-06] MEDS: busPIRone 10 MG TAB PO SCH ×3 (07:57→20:13)
[2023-02-06] MEDS: allopurinoL 100 MG TAB PO SCH (07:57)
[2023-02-06] MEDS: METOPROLOL SUCC (TopROL XL) 50MG **XL** TAB PO SCH (07:58)
[2023-02-06] MEDS: CHLORASEPTIC SPRAY MT SCH ×2 (07:58→20:12)
[2023-02-06] MEDS ORDERED: SENN-52 PO (11:07)
[2023-02-06] MEDS ORDERED: ELIQ5TAB PO (11:07)
[2023-02-06 15:00] VITALS: BP 142/77; TEMP 97.9; O2SAT 94
[2023-02-06] MEDS: CitaloPRAM (CeleXA) 10 MG TABLET PO SCH (20:13)
[2023-02-06 21:30] VITALS: BP 135/71; TEMP 97.7; O2SAT 93
[2023-02-07 05:40] VITALS: BP 130/70; TEMP 97.3; O2SAT 93
[2023-02-07] MEDS: busPIRone 10 MG TAB PO SCH ×3 (08:17→20:29)
[2023-02-07] MEDS: CYANOCOBALAMIN 500 MCG TAB PO SCH (08:17)
[2023-02-07] MEDS: PANTOPRAZOLE 40MG TAB (PROTONIX) PO SCH (08:17)
[2023-02-07] MEDS: APIXABAN 5 MG TAB (ELIQUIS) PO SCH ×2 (08:17→20:29)
[2023-02-07] MEDS: GABAPENTIN 300 MG CAP PO SCH ×4 (08:18→20:29)
[2023-02-07] MEDS: allopurinoL 100 MG TAB PO SCH (08:18)
[2023-02-07] MEDS: METOPROLOL SUCC (TopROL XL) 50MG **XL** TAB PO SCH (08:18)
[2023-02-07] MEDS: guaiFENesin ER TABLET 600 MG TAB PO SCH ×2 (13:40→20:29)
[2023-02-07 14:00] VITALS: BP 136/63; TEMP 97.5; O2SAT 93
[2023-02-07] MEDS: CitaloPRAM (CeleXA) 10 MG TABLET PO SCH (20:29)
[2023-02-07 20:50] VITALS: BP 127/67; TEMP 97.5; O2SAT 93
[2023-02-07] MEDS ORDERED: PERCOCET 5MG/325MG TAB PO ONE (23:55)
[2023-02-08 05:00] VITALS: BP 120/63; TEMP 97.3; O2SAT 94
[2023-02-08] MEDS: busPIRone 10 MG TAB PO SCH ×3 (08:57→20:32)
[2023-02-08] MEDS: allopurinoL 100 MG TAB PO SCH (08:57)
[2023-02-08] MEDS: METOPROLOL SUCC (TopROL XL) 50MG **XL** TAB PO SCH (08:58)
[2023-02-08] MEDS: GABAPENTIN 300 MG CAP PO SCH ×4 (08:59→20:32)
[2023-02-08] MEDS: PANTOPRAZOLE 40MG TAB (PROTONIX) PO SCH (08:59)
[2023-02-08] MEDS: APIXABAN 5 MG TAB (ELIQUIS) PO SCH ×2 (08:59→20:32)
[2023-02-08] MEDS: PERCOCET 5MG/325MG TAB PO PRN (08:59)
[2023-02-08] MEDS: guaiFENesin ER TABLET 600 MG TAB PO SCH ×2 (08:59→20:32)
[2023-02-08] MEDS: CYANOCOBALAMIN 500 MCG TAB PO SCH (08:59)
[2023-02-08] MEDS: VITAMIN D 50,000 UNITS CAPSULE (ERGOCALCIFEROL 1.25MG) PO SCH (08:59)
[2023-02-08 14:00] VITALS: BP 126/61; TEMP 97.5; O2SAT 95
[2023-02-08] MEDS: CitaloPRAM (CeleXA) 10 MG TABLET PO SCH (20:32)
[2023-02-09] MEDS: PERCOCET 5MG/325MG TAB PO PRN ×2 (00:39→20:06)
[2023-02-09 06:00] VITALS: BP 126/62; TEMP 97.7; O2SAT 95
[2023-02-09] MEDS: CYANOCOBALAMIN 500 MCG TAB PO SCH (09:31)
[2023-02-09] MEDS: guaiFENesin ER TABLET 600 MG TAB PO SCH ×2 (09:31→20:05)
[2023-02-09] MEDS: allopurinoL 100 MG TAB PO SCH (09:31)
[2023-02-09] MEDS: PANTOPRAZOLE 40MG TAB (PROTONIX) PO SCH (09:31)
[2023-02-09] MEDS: GABAPENTIN 300 MG CAP PO SCH ×4 (09:31→20:05)
[2023-02-09] MEDS: APIXABAN 5 MG TAB (ELIQUIS) PO SCH ×2 (09:31→20:06)
[2023-02-09] MEDS: busPIRone 10 MG TAB PO SCH ×3 (09:31→20:06)
[2023-02-09] MEDS: METOPROLOL SUCC (TopROL XL) 50MG **XL** TAB PO SCH (09:32)
[2023-02-09] MEDS: CitaloPRAM (CeleXA) 10 MG TABLET PO SCH (20:06)
[2023-02-10 06:21] VITALS: BP 123/71; TEMP 97.9; O2SAT 93
[2023-02-10] MEDS: allopurinoL 100 MG TAB PO SCH (08:10)
[2023-02-10] MEDS: PANTOPRAZOLE 40MG TAB (PROTONIX) PO SCH (08:10)
[2023-02-10] MEDS: APIXABAN 5 MG TAB (ELIQUIS) PO SCH ×2 (08:10→20:35)
[2023-02-10] MEDS: CYANOCOBALAMIN 500 MCG TAB PO SCH (08:10)
[2023-02-10] MEDS: busPIRone 10 MG TAB PO SCH ×3 (08:10→20:35)
[2023-02-10] MEDS: GABAPENTIN 300 MG CAP PO SCH ×4 (08:10→20:35)
[2023-02-10] MEDS: guaiFENesin ER TABLET 600 MG TAB PO SCH ×2 (08:10→20:36)
[2023-02-10] MEDS: METOPROLOL SUCC (TopROL XL) 50MG **XL** TAB PO SCH (08:11)
[2023-02-10] MEDS: DOCUSATE SODIUM 100MG CAPSULE PO SCH ×2 (10:05→20:36)
[2023-02-10] MEDS: MIRALAX *UNIT DOSE* 17GM PACKET PO SCH (10:05)
[2023-02-10] MEDS: CitaloPRAM (CeleXA) 10 MG TABLET PO SCH (20:35)
[2023-02-10] MEDS: SENNA 8.6 MG TAB (SENOKOT) PO SCH (20:35)
[2023-02-10] MEDS: PERCOCET 5MG/325MG TAB PO PRN (20:36)
[2023-02-11 06:00] VITALS: BP 123/71; TEMP 98.1; O2SAT 92
[2023-02-11] MEDS: allopurinoL 100 MG TAB PO SCH (08:44)
[2023-02-11] MEDS: GABAPENTIN 300 MG CAP PO SCH ×4 (08:44→20:11)
[2023-02-11] MEDS: PANTOPRAZOLE 40MG TAB (PROTONIX) PO SCH (08:44)
[2023-02-11] MEDS: APIXABAN 5 MG TAB (ELIQUIS) PO SCH ×2 (08:44→20:10)
[2023-02-11] MEDS: guaiFENesin ER TABLET 600 MG TAB PO SCH ×2 (08:44→20:11)
[2023-02-11] MEDS: DOCUSATE SODIUM 100MG CAPSULE PO SCH ×2 (08:46→20:10)
[2023-02-11] MEDS: busPIRone 10 MG TAB PO SCH ×3 (08:46→20:11)
[2023-02-11] MEDS: METOPROLOL SUCC (TopROL XL) 50MG **XL** TAB PO SCH (08:46)
[2023-02-11] MEDS: CYANOCOBALAMIN 500 MCG TAB PO SCH (08:46)
[2023-02-11] MEDS: MIRALAX *UNIT DOSE* 17GM PACKET PO SCH (08:46)
[2023-02-11] MEDS: SENNA 8.6 MG TAB (SENOKOT) PO SCH (20:10)
[2023-02-11] MEDS: CitaloPRAM (CeleXA) 10 MG TABLET PO SCH (20:11)
[2023-02-11] MEDS: PERCOCET 5MG/325MG TAB PO PRN (20:12)
[2023-02-12 06:00] VITALS: BP 116/58; TEMP 97.9; O2SAT 93
[2023-02-12] MEDS: GABAPENTIN 300 MG CAP PO SCH ×4 (09:11→21:57)
[2023-02-12] MEDS: MIRALAX *UNIT DOSE* 17GM PACKET PO SCH (09:11)
[2023-02-12] MEDS: busPIRone 10 MG TAB PO SCH ×3 (09:14→21:59)
[2023-02-12] MEDS: allopurinoL 100 MG TAB PO SCH (09:14)
[2023-02-12] MEDS: CYANOCOBALAMIN 500 MCG TAB PO SCH (09:15)
[2023-02-12] MEDS: DOCUSATE SODIUM 100MG CAPSULE PO SCH ×2 (09:15→21:57)
[2023-02-12] MEDS: PANTOPRAZOLE 40MG TAB (PROTONIX) PO SCH (09:15)
[2023-02-12] MEDS: guaiFENesin ER TABLET 600 MG TAB PO SCH ×2 (09:15→21:58)
[2023-02-12] MEDS: APIXABAN 5 MG TAB (ELIQUIS) PO SCH ×2 (09:16→21:58)
[2023-02-12] MEDS: METOPROLOL SUCC (TopROL XL) 50MG **XL** TAB PO SCH (09:16)
[2023-02-12] MEDS: PERCOCET 5MG/325MG TAB PO PRN ×2 (09:19→21:57)
[2023-02-12] MEDS: BISACODYL 10MG SUPP PR SCH ×2 (13:08→21:00)
[2023-02-12] MEDS: CitaloPRAM (CeleXA) 10 MG TABLET PO SCH (21:58)
[2023-02-12] MEDS: SENNA 8.6 MG TAB (SENOKOT) PO SCH (21:59)
[2023-02-13 05:57] VITALS: BP 107/62; TEMP 97.5; O2SAT 93
[2023-02-13] MEDS: BISACODYL 10MG SUPP PR SCH ×2 (09:00→20:50)
[2023-02-13] MEDS: DOCUSATE SODIUM 100MG CAPSULE PO SCH ×2 (10:11→20:48)
[2023-02-13] MEDS: allopurinoL 100 MG TAB PO SCH (10:11)
[2023-02-13] MEDS: MIRALAX *UNIT DOSE* 17GM PACKET PO SCH (10:11)
[2023-02-13] MEDS: busPIRone 10 MG TAB PO SCH ×3 (10:12→20:48)
[2023-02-13] MEDS: CYANOCOBALAMIN 500 MCG TAB PO SCH (10:12)
[2023-02-13] MEDS: APIXABAN 5 MG TAB (ELIQUIS) PO SCH ×2 (10:12→20:49)
[2023-02-13] MEDS: GABAPENTIN 300 MG CAP PO SCH ×4 (10:12→20:49)
[2023-02-13] MEDS: METOPROLOL SUCC (TopROL XL) 50MG **XL** TAB PO SCH (10:12)
[2023-02-13] MEDS: guaiFENesin ER TABLET 600 MG TAB PO SCH ×2 (10:12→20:49)
[2023-02-13] MEDS: PANTOPRAZOLE 40MG TAB (PROTONIX) PO SCH (10:13)
[2023-02-13] MEDS: PERCOCET 5MG/325MG TAB PO PRN ×2 (10:22→20:49)
[2023-02-13] MEDS: CitaloPRAM (CeleXA) 10 MG TABLET PO SCH (20:49)
[2023-02-13] MEDS: SENNA 8.6 MG TAB (SENOKOT) PO SCH (20:49)
[2023-02-14 05:30] VITALS: BP 120/55; TEMP 98.1; O2SAT 92
[2023-02-14] MEDS: GABAPENTIN 300 MG CAP PO SCH ×4 (08:39→20:29)
[2023-02-14] MEDS: guaiFENesin ER TABLET 600 MG TAB PO SCH ×2 (08:39→20:29)
[2023-02-14] MEDS: PANTOPRAZOLE 40MG TAB (PROTONIX) PO SCH (08:39)
[2023-02-14] MEDS: DOCUSATE SODIUM 100MG CAPSULE PO SCH ×2 (08:39→20:29)
[2023-02-14] MEDS: busPIRone 10 MG TAB PO SCH ×3 (08:39→20:29)
[2023-02-14] MEDS: CYANOCOBALAMIN 500 MCG TAB PO SCH (08:39)
[2023-02-14] MEDS: APIXABAN 5 MG TAB (ELIQUIS) PO SCH ×2 (08:39→20:29)
[2023-02-14] MEDS: allopurinoL 100 MG TAB PO SCH (08:40)
[2023-02-14] MEDS: METOPROLOL SUCC (TopROL XL) 50MG **XL** TAB PO SCH (08:40)
[2023-02-14] MEDS: BISACODYL 10MG SUPP PR SCH ×2 (08:40→20:30)
[2023-02-14] MEDS: MIRALAX *UNIT DOSE* 17GM PACKET PO SCH (08:41)
[2023-02-14] MEDS: PERCOCET 5MG/325MG TAB PO PRN (20:28)
[2023-02-14] MEDS: CitaloPRAM (CeleXA) 10 MG TABLET PO SCH (20:29)
[2023-02-14] MEDS: SENNA 8.6 MG TAB (SENOKOT) PO SCH (20:29)
[2023-02-15 05:29] VITALS: BP 126/67; TEMP 97.5; O2SAT 95
[2023-02-15] MEDS: APIXABAN 5 MG TAB (ELIQUIS) PO SCH ×2 (08:15→21:54)
[2023-02-15] MEDS: guaiFENesin ER TABLET 600 MG TAB PO SCH ×2 (08:15→21:54)
[2023-02-15] MEDS: DOCUSATE SODIUM 100MG CAPSULE PO SCH ×2 (08:15→21:54)
[2023-02-15] MEDS: CYANOCOBALAMIN 500 MCG TAB PO SCH (08:16)
[2023-02-15] MEDS: GABAPENTIN 300 MG CAP PO SCH ×4 (08:16→21:54)
[2023-02-15] MEDS: METOPROLOL SUCC (TopROL XL) 50MG **XL** TAB PO SCH (08:16)
[2023-02-15] MEDS: allopurinoL 100 MG TAB PO SCH (08:16)
[2023-02-15] MEDS: busPIRone 10 MG TAB PO SCH ×3 (08:16→21:54)
[2023-02-15] MEDS: PANTOPRAZOLE 40MG TAB (PROTONIX) PO SCH (08:16)
[2023-02-15] MEDS: MIRALAX *UNIT DOSE* 17GM PACKET PO SCH (08:16)
[2023-02-15] MEDS: BISACODYL 10MG SUPP PR SCH ×2 (08:17→21:00)
[2023-02-15] MEDS: VITAMIN D 50,000 UNITS CAPSULE (ERGOCALCIFEROL 1.25MG) PO SCH (08:18)
[2023-02-15] MEDS: SENNA 8.6 MG TAB (SENOKOT) PO SCH (21:54)
[2023-02-15] MEDS: CitaloPRAM (CeleXA) 10 MG TABLET PO SCH (21:54)
[2023-02-15] MEDS: PERCOCET 5MG/325MG TAB PO PRN (21:55)
[2023-02-16 05:24] VITALS: BP 124/69; TEMP 97.7; O2SAT 93
[2023-02-16] MEDS: guaiFENesin ER TABLET 600 MG TAB PO SCH (08:01)
[2023-02-16 08:02] VITALS: BP 122/66
[2023-02-16] MEDS: allopurinoL 100 MG TAB PO SCH (08:02)
[2023-02-16] MEDS: PANTOPRAZOLE 40MG TAB (PROTONIX) PO SCH (08:02)
[2023-02-16] MEDS: METOPROLOL SUCC (TopROL XL) 50MG **XL** TAB PO SCH (08:02)
[2023-02-16] MEDS: GABAPENTIN 300 MG CAP PO SCH (08:03)
[2023-02-16] MEDS: APIXABAN 5 MG TAB (ELIQUIS) PO SCH (08:03)
[2023-02-16] MEDS: DOCUSATE SODIUM 100MG CAPSULE PO SCH (08:03)
[2023-02-16] MEDS: BISACODYL 10MG SUPP PR SCH (08:03)
[2023-02-16] MEDS: CYANOCOBALAMIN 500 MCG TAB PO SCH (08:04)
[2023-02-16] MEDS: busPIRone 10 MG TAB PO SCH (08:04)
[2023-02-16] MEDS: MIRALAX *UNIT DOSE* 17GM PACKET PO SCH (08:10)
[2023-02-16] MEDS: PERCOCET 5MG/325MG TAB PO PRN (09:30)
[2023-02-16] MEDS ORDERED: DULC10SU2 PR (11:42)
[2023-02-16] MEDS ORDERED: COLA100C5 PO (11:42)
[2023-02-16] MEDS ORDERED: SENN-186 PO (11:42)
== END 2023-02-16 13:30 ==
LOC: M ED 08:31 → EEVIPCON 16:58 → M ED INP 16:58 → M MSPAV 18:32
PROVIDERS: ADMIT Student in an Organized Health Care Education/Training Program; ATTEND Internal Medicine Nephrology
DX: K59.03 Drug induced constipation (principal); T40.2X5A Adverse effect of other opioids, initial encounter; F11.20 Opioid dependence, uncomplicated; U07.1 COVID-19; M54.50 Low back pain, unspecified; G89.29 Other chronic pain; N18.30 Chronic kidney disease, stage 3 unspecified; I48.20 Chronic atrial fibrillation, unspecified; D89.0 Polyclonal hypergammaglobulinemia; N31.9 Neuromuscular dysfunction of bladder, unspecified; K76.0 Fatty (change of) liver, not elsewhere classified; Z87.442 Personal history of urinary calculi; Z86.718 Personal history of other venous thrombosis and embolism; Z91.041 Radiographic dye allergy status; Z91.040 Latex allergy status; Z88.5 Allergy status to narcotic agent; Z88.8 Allergy status to other drugs, medicaments and biological substances; Z88.4 Allergy status to anesthetic agent; Z79.899 Other long term (current) drug therapy
CPT/HCPCS: 36415; 51701; 71045; 74018; 80048; 80076; 81001; 82150; 82550; 82553; 83605; 83690; 83735; 84484; 85025; 85610; 85730; 86850; 86900; 86901; 87086; 87088; 87486; 87581; 87633; 87635; 87798; 93005; 93041; 94640; 96361; 96365; 96372; 96375; 96376; 97110; 97116; 97161; 97165; 97530; 97535; 99285; G0378; J1650; J2405; J3475

== ENCOUNTER → 2023-02-20 | Outpatient (REF) ==
[~2023-02-20] MED LIST changes: +AMLO25TA PO; +COLA100C5 PO; +DULC10SU2 PR; +ELIQ5TAB PO; +MACR50CA10 PO; +MYLA1SUS PO; +ONDA-83 PO; +SENN-186 PO; +SENN-52 PO; +SPIR-10 PO
[2023-02-20 10:49] LABS: HEMATOCRIT 35.8 % (36.0-47.0); HEMOGLOBIN 11.8 g/dl (12.0-15.5); MEAN CORPUSCULAR HEMOGLOBIN 30.6 pg (27.0-33.0); MEAN CORPUSCULAR VOLUME 92.7 fl (80.0-96.0); PLATELET COUNT, AUTOMATED 382 10^3/uL (150-450); RED BLOOD COUNT 3.86 10^6/uL (4.00-5.40); WHITE BLOOD COUNT 9.1 10^3/uL (4.0-10.0)
[2023-02-20 11:14] LABS: BLOOD UREA NITROGEN 14 MG/DL (9-23); CALCIUM LEVEL 9.5 MG/DL (8.3-10.6); CARBON DIOXIDE LEVEL 27 MMOL/L (20-31); CHLORIDE LEVEL 102 MMOL/L (98-107); CREATININE FOR GFR 0.93 MG/DL (0.55-1.30); GLOMERULAR FILTRATION RATE > 60.0 (>32); GLUCOSE, FASTING 121 MG/DL (74-106); POTASSIUM SERUM 3.8 MMOL/L (3.5-5.1); SODIUM LEVEL 139 MMOL/L (136-145)
== END ==
PROVIDERS: ATTEND Internal Medicine
DX: I10 Essential (primary) hypertension (principal)

== ENCOUNTER → 2023-03-07 | Outpatient (REF) | payer MEDICARE, MEDICAID | PROVIDERS: ATTEND Internal Medicine | DX: M79.89 Other specified soft tissue disorders (principal) ==

== ENCOUNTER → 2023-03-08 | Outpatient (CLI) | payer MEDICARE, MEDICAID | LOC: M RAD 11:23 | PROVIDERS: ATTEND Internal Medicine | DX: M19.072 Primary osteoarthritis, left ankle and foot (principal); M61.479 Other calcification of muscle, unspecified ankle and foot ==

== ENCOUNTER → 2023-03-15 | Outpatient (REF) | payer MEDICARE, MEDICAID, OTHER ==
[~2023-03-15] MED LIST changes: +ACET-907 PO; +ASPI81TAEC PO; +ATOR40TA75 PO; +BISA10SU27 PR; +CEFD1CAP9 PO; -CEFD300C42 PO; +CITA20TA6 PO; +DESI13CR2 TOP; +FLEEENE12 PR; +LIDO1CRE2 TOP; +VALA500T5 PO
[2023-03-15 10:11] LABS: BASO # 0.1 10^3/uL (0.0-0.2); BASO % 0.5 % (0.0-1.0); EOS # 0.3 10^3/uL (0.0-0.5); EOS % 2.8 % (0.0-3.0); HEMATOCRIT 36.1 % (36.0-47.0); HEMOGLOBIN 11.4 g/dl (12.0-15.5); LYMPH # 1.8 10^3/uL (1.5-5.0); LYMPH % 17.5 % (24.0-44.0); MEAN CORPUSCULAR HEMOGLOBIN 30.2 pg (27.0-33.0); MEAN CORPUSCULAR HGB CONC 31.6 g/dl (32.0-36.5); MEAN CORPUSCULAR VOLUME 95.8 fl (80.0-96.0); MONO # 0.7 10^3/uL (0.0-0.8); MONO % 7.1 % (2.0-8.0); NEUTROPHILS # 7.2 10^3/uL (1.5-8.5); NEUTROPHILS % 71.6 % (36.0-66.0); PLATELET COUNT, AUTOMATED 373 10^3/uL (150-450); RED BLOOD COUNT 3.77 10^6/uL (4.00-5.40); WHITE BLOOD COUNT 10.1 10^3/uL (4.0-10.0)
[2023-03-15 10:29] LABS: ALBUMIN 3.1 G/DL (3.2-5.2); CALCIUM LEVEL 9.7 MG/DL (8.3-10.6); CREATININE FOR GFR 1.03 MG/DL (0.55-1.30); GLOMERULAR FILTRATION RATE 54.9 (>32); PHOSPHORUS LEVEL 3.7 MG/DL (2.4-5.1)
[2023-03-15 10:31] LABS: URIC ACID 4.4 MG/DL (3.1-7.8)
== END ==
PROVIDERS: ATTEND Internal Medicine Nephrology
DX: N18.32 Chronic kidney disease, stage 3b (principal); Z79.899 Other long term (current) drug therapy

== ENCOUNTER → 2023-03-28 | Outpatient (REF) | payer MEDICARE, MEDICAID ==
[~2023-03-28] MED LIST changes: -ASPI81TAEC PO; -ATOR40TA75 PO
== END ==
PROVIDERS: ATTEND Internal Medicine
DX: R06.89 Other abnormalities of breathing (principal)

== ENCOUNTER → 2023-03-28 | Outpatient (REF) | payer MEDICARE, MEDICAID ==
[~2023-03-28] MED LIST changes: +ASPI81TAEC PO; +ATOR40TA75 PO
[2023-03-28 15:49] LABS: HEMATOCRIT 35.1 % (36.0-47.0); MEAN CORPUSCULAR HEMOGLOBIN 30.3 pg (27.0-33.0); MEAN CORPUSCULAR HGB CONC 31.3 g/dl (32.0-36.5); MEAN CORPUSCULAR VOLUME 96.7 fl (80.0-96.0); PLATELET COUNT, AUTOMATED 300 10^3/uL (150-450); RED BLOOD COUNT 3.63 10^6/uL (4.00-5.40)
[2023-03-28 16:09] LABS: CALCIUM LEVEL 9.6 MG/DL (8.3-10.6); CREATININE FOR GFR 1.06 MG/DL (0.55-1.30); GLOMERULAR FILTRATION RATE 53.1 (>32); MAGNESIUM LEVEL 1.5 MG/DL (1.8-2.4); POTASSIUM SERUM 4.6 MMOL/L (3.5-5.1)
[2023-03-28 16:12] LABS: THYROID STIMULATING HORMONE 1.249 uIU/ML (0.55-4.78)
== END ==
PROVIDERS: ATTEND Internal Medicine
DX: R53.1 Weakness (principal)

== ENCOUNTER 2023-03-29 13:02 | Observation (INO) | payer MEDICARE, MEDICAID ==
[~2023-03-29] VITALS: Ht 165.1 cm; Wt 75.7 kg
[2023-03-29] MEDS: ASPIRIN 81MG ENTERIC TABLET PO SCH (09:00)
[2023-03-29] MEDS: ATORVASTATIN 20 MG TAB PO SCH (09:00)
[~2023-03-29 13:02] MED LIST changes: -ACET-907 PO; -ASPI81TAEC PO; -ATOR40TA75 PO; -BISA10SU27 PR; -CITA20TA6 PO; -DESI13CR2 TOP; -FLEEENE12 PR; -LIDO1CRE2 TOP; -VALA500T5 PO
[2023-03-29 14:10] VITALS: BP 152/74; TEMP 99.1; O2SAT 96
[2023-03-29 14:19] LABS: BASO # 0.1 10^3/uL (0.0-0.2); BASO % 0.6 % (0.0-1.0); EOS # 0.2 10^3/uL (0.0-0.5); EOS % 1.7 % (0.0-3.0); HEMOGLOBIN 11.8 g/dl (12.0-15.5); LYMPH # 2.1 10^3/uL (1.5-5.0); LYMPH % 18.9 % (24.0-44.0); MEAN CORPUSCULAR HEMOGLOBIN 30.3 pg (27.0-33.0); MEAN CORPUSCULAR HGB CONC 31.9 g/dl (32.0-36.5); MEAN CORPUSCULAR VOLUME 94.9 fl (80.0-96.0); MONO # 0.7 10^3/uL (0.0-0.8); MONO % 6.1 % (2.0-8.0); NEUTROPHILS # 8.1 10^3/uL (1.5-8.5); NEUTROPHILS % 72.3 % (36.0-66.0); PLATELET COUNT, AUTOMATED 321 10^3/uL (150-450); WHITE BLOOD COUNT 11.3 10^3/uL (4.0-10.0)
[2023-03-29 14:49] LABS: CK-MB VALUE MASS < 1.0 NG/ML (<3.6)
[2023-03-29 14:52] LABS: ALBUMIN 3.3 G/DL (3.2-5.2); ALKALINE PHOSPHATASE 98 U/L (46-116); ALT/SGPT < 9 U/L (7.0-40); AST/SGOT < 8 U/L (<34); BILIRUBIN,DIRECT 0.1 MG/DL (<0.4); BILIRUBIN,TOTAL 0.4 MG/DL (0.3-1.2); BLOOD UREA NITROGEN 14 MG/DL (9-23); CALCIUM LEVEL 10.3 MG/DL (8.3-10.6); CARBON DIOXIDE LEVEL 29 MMOL/L (20-31); CHLORIDE LEVEL 103 MMOL/L (98-107); CPK CREATINE PHOSPHOKINASE 18 U/L (34-145); CREATININE FOR GFR 0.98 MG/DL (0.55-1.30); GLOMERULAR FILTRATION RATE 58.1 (>32); GLUCOSE, FASTING 145 MG/DL (74-106); MB/CK RELATIVE INDEX 5.55 (< OR =4); POTASSIUM SERUM 4.2 MMOL/L (3.5-5.1); SODIUM LEVEL 140 MMOL/L (136-145); TOTAL PROTEIN 6.6 G/DL (5.7-8.2)
[2023-03-29 14:53] LABS: THYROID STIMULATING HORMONE 1.138 uIU/ML (0.55-4.78)
[2023-03-29 14:54] LABS: FREE T4 1.12 NG/DL (0.89-1.76)
[2023-03-29 14:57] LABS: RSV AMPLIFICATION NEGATIVE (NEGATIVE)
[2023-03-29 15:23] LABS: INR 1.63; PARTIAL THROMBOPLASTIN TIME 41.2 SECONDS (24.8-34.2); PROTHROMBIN TIME 18.8 SECONDS (12.5-14.5)
[2023-03-29] MEDS ORDERED: MED REC IN PROGRESS XX SCH (17:05)
[2023-03-29] MEDS ORDERED: ELIQ5TAB PO (17:18)
[2023-03-29] MEDS ORDERED: BISA10SU27 PR (17:21)
[2023-03-29] MEDS ORDERED: CITA20TA6 PO (17:26)
[2023-03-29] MEDS ORDERED: DESI13CR2 TOP (17:34)
[2023-03-29] MEDS ORDERED: LIDO1CRE2 TOP (17:41)
[2023-03-29] MEDS ORDERED: VALA500T5 PO (18:04)
[2023-03-29] MEDS ORDERED: SENN-52 PO (18:05)
[2023-03-29] MEDS ORDERED: FLEEENE12 PR (18:09)
[2023-03-29] MEDS ORDERED: ACET-907 PO (18:10)
[2023-03-29] MEDS ORDERED: HOME MED LIST COMPLETE! XX SCH (18:15)
[2023-03-29] MEDS ORDERED: FLEET ENEMA PR PRN (19:20)
[2023-03-29] MEDS ORDERED: IPRATROPIUM HFA INHALER 12.9 GRAMS (ATROVENT HFA) INH PRN (19:20)
[2023-03-29] MEDS ORDERED: AZELASTINE 137MCG NASAL SPY 30 ML (ASTELIN) PRN (19:20)
[2023-03-29] MEDS ORDERED: NYSTATIN 100,000 UNITS/GM TOPICAL PWD 15GM TOP PRN (19:20)
[2023-03-29] MEDS ORDERED: PERCOCET 5MG/325MG TAB PO PRN (19:20)
[2023-03-29] MEDS ORDERED: ALBUTEROL 90 MCG/ACT 8GM HFA INHALER INH PRN (19:20)
[2023-03-29] MEDS: APIXABAN 5 MG TAB (ELIQUIS) PO SCH (20:49)
[2023-03-29] MEDS: traZODone 50 MG TAB PO SCH (20:50)
[2023-03-29] MEDS: GABAPENTIN 300 MG CAP PO SCH (20:50)
[2023-03-29] MEDS: busPIRone 10 MG TAB PO SCH (20:50)
[2023-03-29] MEDS: PERCOCET 5MG/325MG TAB PO SCH (20:50)
[2023-03-29] MEDS: ACETAMINOPHEN TAB 650MG DOSE (2X325MG) PO PRN (20:59)
[2023-03-29] MEDS ORDERED: valACYclovir HCL 500 MG TAB PO SCH (21:00)
[2023-03-29 21:15] VITALS: BP 171/88; TEMP 97.9; O2SAT 93
[2023-03-29 22:00] VITALS: BP 152/82
[2023-03-29 23:21] VITALS: BP 123/70; TEMP 98.3; O2SAT 93
[2023-03-30 03:48] VITALS: BP 137/75; TEMP 98; O2SAT 92
[2023-03-30 06:57] LABS: HEMATOCRIT 37.3 % (36.0-47.0); HEMOGLOBIN 11.8 g/dl (12.0-15.5); MEAN CORPUSCULAR HEMOGLOBIN 30.3 pg (27.0-33.0); MEAN CORPUSCULAR HGB CONC 31.6 g/dl (32.0-36.5); MEAN CORPUSCULAR VOLUME 95.6 fl (80.0-96.0); PLATELET COUNT, AUTOMATED 320 10^3/uL (150-450); WHITE BLOOD COUNT 9.7 10^3/uL (4.0-10.0)
[2023-03-30 07:14] LABS: BLOOD UREA NITROGEN 13 MG/DL (9-23); CALCIUM LEVEL 10.1 MG/DL (8.3-10.6); CARBON DIOXIDE LEVEL 29 MMOL/L (20-31); CHLORIDE LEVEL 103 MMOL/L (98-107); CHOLESTEROL LEVEL 232 MG/DL (<200); CHOLESTEROL RISK RATIO 8.59 (<5); CREATININE FOR GFR 0.93 MG/DL (0.55-1.30); GLOMERULAR FILTRATION RATE > 60.0 (>32); GLUCOSE, FASTING 103 MG/DL (74-106); LDL CHOLESTEROL 160.4 MG/DL (<100); MAGNESIUM LEVEL 1.5 MG/DL (1.8-2.4); POTASSIUM SERUM 4.1 MMOL/L (3.5-5.1); SODIUM LEVEL 141 MMOL/L (136-145); TRIGLYCERIDES LEVEL 223 MG/DL (<150)
[2023-03-30 08:03] VITALS: BP 138/70; TEMP 98.4; O2SAT 90
[2023-03-30 08:19] LABS: HEMOGLOBIN A1c 5.6 % (4.0-6.0)
[2023-03-30] MEDS ORDERED: ATOR40TA75 PO (09:03)
[2023-03-30] MEDS ORDERED: ASPI81TAEC PO (09:03)
[2023-03-30] MEDS: ASPIRIN 81MG ENTERIC TABLET PO SCH (09:38)
[2023-03-30] MEDS: allopurinoL 100 MG TAB PO SCH (09:38)
[2023-03-30] MEDS: GABAPENTIN 300 MG CAP PO SCH ×3 (09:38→20:27)
[2023-03-30] MEDS: ATORVASTATIN 20 MG TAB PO SCH (09:38)
[2023-03-30] MEDS: CitaloPRAM (CeleXA) 20 MG TAB PO SCH (09:38)
[2023-03-30] MEDS: CYANOCOBALAMIN 500 MCG TAB PO SCH (09:39)
[2023-03-30] MEDS: busPIRone 10 MG TAB PO SCH ×3 (09:39→20:28)
[2023-03-30] MEDS: APIXABAN 5 MG TAB (ELIQUIS) PO SCH ×2 (09:39→20:27)
[2023-03-30] MEDS: PANTOPRAZOLE 40MG TAB (PROTONIX) PO SCH (09:39)
[2023-03-30] MEDS: SPIRONOLACTONE 25 MG TAB PO SCH (09:40)
[2023-03-30] MEDS: PERCOCET 5MG/325MG TAB PO SCH ×3 (09:40→20:28)
[2023-03-30] MEDS: FLUTICASONE PROP 0.05% NASAL SPRAY 16 GM (FLONASE) SCH (09:40)
[2023-03-30] MEDS: METOPROLOL SUCC (TopROL XL) 50MG **XL** TAB PO SCH (09:40)
[2023-03-30] MEDS: MAG SULF 1GM/100ML (MAG RUN) 1 GM in IV 1 EA IV SCH ×2 (12:01→12:05)
[2023-03-30 14:40] VITALS: BP 116/62; TEMP 97.7; O2SAT 94
[2023-03-30] MEDS: traZODone 50 MG TAB PO SCH (20:27)
[2023-03-30] MEDS: SENOKOT S TAB PO PRN (20:29)
[2023-03-31 05:00] VITALS: BP 113/69; TEMP 97.5; O2SAT 97
[2023-03-31] MEDS: ACETAMINOPHEN TAB 650MG DOSE (2X325MG) PO PRN (05:05)
[2023-03-31 05:46] LABS: HEMATOCRIT 37.3 % (36.0-47.0); HEMOGLOBIN 11.8 g/dl (12.0-15.5); MEAN CORPUSCULAR HEMOGLOBIN 30.8 pg (27.0-33.0); MEAN CORPUSCULAR HGB CONC 31.6 g/dl (32.0-36.5); MEAN CORPUSCULAR VOLUME 97.4 fl (80.0-96.0); PLATELET COUNT, AUTOMATED 295 10^3/uL (150-450); RED BLOOD COUNT 3.83 10^6/uL (4.00-5.40); WHITE BLOOD COUNT 9.4 10^3/uL (4.0-10.0)
[2023-03-31 06:13] LABS: CALCIUM LEVEL 9.7 MG/DL (8.3-10.6); CREATININE FOR GFR 1.08 MG/DL (0.55-1.30); POTASSIUM SERUM 4.1 MMOL/L (3.5-5.1)
[2023-03-31] MEDS: FLUTICASONE PROP 0.05% NASAL SPRAY 16 GM (FLONASE) SCH (08:43)
[2023-03-31] MEDS: CYANOCOBALAMIN 500 MCG TAB PO SCH (08:44)
[2023-03-31] MEDS: ATORVASTATIN 20 MG TAB PO SCH (08:44)
[2023-03-31] MEDS: allopurinoL 100 MG TAB PO SCH (08:44)
[2023-03-31] MEDS: GABAPENTIN 300 MG CAP PO SCH ×3 (08:44→20:37)
[2023-03-31] MEDS: SPIRONOLACTONE 25 MG TAB PO SCH (08:44)
[2023-03-31] MEDS: busPIRone 10 MG TAB PO SCH ×3 (08:44→20:37)
[2023-03-31] MEDS: CitaloPRAM (CeleXA) 20 MG TAB PO SCH (08:44)
[2023-03-31] MEDS: METOPROLOL SUCC (TopROL XL) 50MG **XL** TAB PO SCH (08:45)
[2023-03-31] MEDS: PANTOPRAZOLE 40MG TAB (PROTONIX) PO SCH (08:45)
[2023-03-31] MEDS: PERCOCET 5MG/325MG TAB PO SCH ×3 (08:45→20:38)
[2023-03-31] MEDS: APIXABAN 5 MG TAB (ELIQUIS) PO SCH ×2 (08:45→20:37)
[2023-03-31] MEDS: SENOKOT S TAB PO PRN (20:37)
[2023-03-31] MEDS: traZODone 50 MG TAB PO SCH (20:37)
[2023-04-01] MEDS: ACETAMINOPHEN TAB 650MG DOSE (2X325MG) PO PRN (05:10)
[2023-04-01 05:45] LABS: HEMATOCRIT 35.2 % (36.0-47.0); HEMOGLOBIN 10.9 g/dl (12.0-15.5); MEAN CORPUSCULAR HEMOGLOBIN 30.4 pg (27.0-33.0); MEAN CORPUSCULAR VOLUME 98.3 fl (80.0-96.0); PLATELET COUNT, AUTOMATED 281 10^3/uL (150-450); RED BLOOD COUNT 3.58 10^6/uL (4.00-5.40); WHITE BLOOD COUNT 9.3 10^3/uL (4.0-10.0)
[2023-04-01 06:10] LABS: CALCIUM LEVEL 10.1 MG/DL (8.3-10.6); CREATININE FOR GFR 1.07 MG/DL (0.55-1.30); GLOMERULAR FILTRATION RATE 52.5 (>32); MAGNESIUM LEVEL 1.6 MG/DL (1.8-2.4); POTASSIUM SERUM 4.3 MMOL/L (3.5-5.1)
[2023-04-01 06:28] VITALS: BP 130/67; TEMP 98.1; O2SAT 95
[2023-04-01] MEDS: MIRALAX *UNIT DOSE* 17GM PACKET PO PRN (09:00)
[2023-04-01] MEDS: PANTOPRAZOLE 40MG TAB (PROTONIX) PO SCH (09:11)
[2023-04-01] MEDS: APIXABAN 5 MG TAB (ELIQUIS) PO SCH ×2 (09:11→20:18)
[2023-04-01] MEDS: ATORVASTATIN 20 MG TAB PO SCH (09:11)
[2023-04-01] MEDS: allopurinoL 100 MG TAB PO SCH (09:11)
[2023-04-01] MEDS: BISACODYL 10MG SUPP PR PRN (09:12)
[2023-04-01] MEDS: busPIRone 10 MG TAB PO SCH ×3 (09:12→20:18)
[2023-04-01] MEDS: CitaloPRAM (CeleXA) 20 MG TAB PO SCH (09:12)
[2023-04-01] MEDS: PERCOCET 5MG/325MG TAB PO SCH ×3 (09:12→20:20)
[2023-04-01] MEDS: SPIRONOLACTONE 25 MG TAB PO SCH (09:12)
[2023-04-01] MEDS: CYANOCOBALAMIN 500 MCG TAB PO SCH (09:12)
[2023-04-01] MEDS: GABAPENTIN 300 MG CAP PO SCH ×3 (09:12→20:18)
[2023-04-01] MEDS: FLUTICASONE PROP 0.05% NASAL SPRAY 16 GM (FLONASE) SCH (09:14)
[2023-04-01] MEDS: METOPROLOL SUCC (TopROL XL) 50MG **XL** TAB PO SCH (09:14)
[2023-04-01] MEDS: SENOKOT S TAB PO PRN (16:22)
[2023-04-01] MEDS: traZODone 50 MG TAB PO SCH (20:18)
[2023-04-02] MEDS: ACETAMINOPHEN TAB 650MG DOSE (2X325MG) PO PRN (04:10)
[2023-04-02] MEDS: oxyCODONE 5MG TAB PO PRN (05:37)
[2023-04-02 06:03] LABS: HEMATOCRIT 36.2 % (36.0-47.0); HEMOGLOBIN 11.4 g/dl (12.0-15.5); MEAN CORPUSCULAR HEMOGLOBIN 30.6 pg (27.0-33.0); MEAN CORPUSCULAR HGB CONC 31.5 g/dl (32.0-36.5); MEAN CORPUSCULAR VOLUME 97.3 fl (80.0-96.0); PLATELET COUNT, AUTOMATED 286 10^3/uL (150-450); RED BLOOD COUNT 3.72 10^6/uL (4.00-5.40); WHITE BLOOD COUNT 10.5 10^3/uL (4.0-10.0)
[2023-04-02 06:25] LABS: CALCIUM LEVEL 9.6 MG/DL (8.3-10.6); CREATININE FOR GFR 1.03 MG/DL (0.55-1.30); GLOMERULAR FILTRATION RATE 54.9 (>32); MAGNESIUM LEVEL 1.7 MG/DL (1.8-2.4); POTASSIUM SERUM 4.3 MMOL/L (3.5-5.1)
[2023-04-02 06:57] VITALS: BP 101/66; TEMP 98.1; O2SAT 93
[2023-04-02] MEDS: GABAPENTIN 300 MG CAP PO SCH ×3 (09:25→20:58)
[2023-04-02] MEDS: FLUTICASONE PROP 0.05% NASAL SPRAY 16 GM (FLONASE) SCH (09:25)
[2023-04-02] MEDS: ATORVASTATIN 20 MG TAB PO SCH (09:25)
[2023-04-02] MEDS: SPIRONOLACTONE 25 MG TAB PO SCH (09:26)
[2023-04-02] MEDS: CitaloPRAM (CeleXA) 20 MG TAB PO SCH (09:27)
[2023-04-02] MEDS: allopurinoL 100 MG TAB PO SCH (09:27)
[2023-04-02] MEDS: PANTOPRAZOLE 40MG TAB (PROTONIX) PO SCH (09:28)
[2023-04-02] MEDS: CYANOCOBALAMIN 500 MCG TAB PO SCH (09:28)
[2023-04-02] MEDS: busPIRone 10 MG TAB PO SCH ×3 (09:28→20:56)
[2023-04-02] MEDS: METOPROLOL SUCC (TopROL XL) 50MG **XL** TAB PO SCH (09:28)
[2023-04-02] MEDS: APIXABAN 5 MG TAB (ELIQUIS) PO SCH ×2 (09:29→20:56)
[2023-04-02] MEDS: PERCOCET 5MG/325MG TAB PO SCH ×3 (09:30→20:58)
[2023-04-02] MEDS: traZODone 50 MG TAB PO SCH (20:57)
[2023-04-02] MEDS: SENOKOT S TAB PO PRN (20:58)
[2023-04-03] MEDS: oxyCODONE 5MG TAB PO PRN (03:40)
[2023-04-03 05:28] VITALS: BP 111/70; TEMP 97.3; O2SAT 91
[2023-04-03] MEDS: GABAPENTIN 300 MG CAP PO SCH ×3 (08:32→20:30)
[2023-04-03] MEDS: ATORVASTATIN 20 MG TAB PO SCH (08:33)
[2023-04-03] MEDS: busPIRone 10 MG TAB PO SCH ×3 (08:33→20:30)
[2023-04-03] MEDS: SPIRONOLACTONE 25 MG TAB PO SCH (08:33)
[2023-04-03] MEDS: PANTOPRAZOLE 40MG TAB (PROTONIX) PO SCH (08:34)
[2023-04-03] MEDS: APIXABAN 5 MG TAB (ELIQUIS) PO SCH ×2 (08:34→20:30)
[2023-04-03] MEDS: CYANOCOBALAMIN 500 MCG TAB PO SCH (08:34)
[2023-04-03] MEDS: PERCOCET 5MG/325MG TAB PO SCH ×3 (08:35→20:31)
[2023-04-03] MEDS: allopurinoL 100 MG TAB PO SCH (08:36)
[2023-04-03] MEDS: CitaloPRAM (CeleXA) 20 MG TAB PO SCH (08:36)
[2023-04-03] MEDS: FLUTICASONE PROP 0.05% NASAL SPRAY 16 GM (FLONASE) SCH (08:38)
[2023-04-03] MEDS: METOPROLOL SUCC (TopROL XL) 50MG **XL** TAB PO SCH (08:38)
[2023-04-03] MEDS: SENOKOT S TAB PO PRN (08:46)
[2023-04-03] MEDS: BISACODYL 10MG SUPP PR PRN (18:04)
[2023-04-03] MEDS: traZODone 50 MG TAB PO SCH (20:30)
[2023-04-04 05:08] VITALS: BP 122/65; TEMP 97.7; O2SAT 94
[2023-04-04 05:30] LABS: HEMATOCRIT 37.6 % (36.0-47.0); HEMOGLOBIN 12.2 g/dl (12.0-15.5); MEAN CORPUSCULAR HGB CONC 32.4 g/dl (32.0-36.5); MEAN CORPUSCULAR VOLUME 95.7 fl (80.0-96.0); PLATELET COUNT, AUTOMATED 283 10^3/uL (150-450); RED BLOOD COUNT 3.93 10^6/uL (4.00-5.40)
[2023-04-04 05:59] LABS: CALCIUM LEVEL 10.4 MG/DL (8.3-10.6); CREATININE FOR GFR 1.13 MG/DL (0.55-1.30); GLOMERULAR FILTRATION RATE 49.3 (>32); MAGNESIUM LEVEL 1.6 MG/DL (1.8-2.4); POTASSIUM SERUM 4.3 MMOL/L (3.5-5.1)
[2023-04-04] MEDS: FLUTICASONE PROP 0.05% NASAL SPRAY 16 GM (FLONASE) SCH (08:22)
[2023-04-04] MEDS: ATORVASTATIN 20 MG TAB PO SCH (08:23)
[2023-04-04] MEDS: METOPROLOL SUCC (TopROL XL) 50MG **XL** TAB PO SCH (08:23)
[2023-04-04] MEDS: busPIRone 10 MG TAB PO SCH ×3 (08:24→20:03)
[2023-04-04] MEDS: allopurinoL 100 MG TAB PO SCH (08:24)
[2023-04-04] MEDS: CYANOCOBALAMIN 500 MCG TAB PO SCH (08:24)
[2023-04-04] MEDS: CitaloPRAM (CeleXA) 20 MG TAB PO SCH (08:24)
[2023-04-04] MEDS: GABAPENTIN 300 MG CAP PO SCH ×3 (08:25→20:03)
[2023-04-04] MEDS: PANTOPRAZOLE 40MG TAB (PROTONIX) PO SCH (08:25)
[2023-04-04] MEDS: SPIRONOLACTONE 25 MG TAB PO SCH (08:25)
[2023-04-04] MEDS: APIXABAN 5 MG TAB (ELIQUIS) PO SCH ×2 (08:25→20:02)
[2023-04-04] MEDS: PERCOCET 5MG/325MG TAB PO SCH ×3 (08:26→20:03)
[2023-04-04] MEDS: SENOKOT S TAB PO PRN (08:28)
[2023-04-04] MEDS: traZODone 50 MG TAB PO SCH (20:03)
[2023-04-04] MEDS: oxyCODONE 5MG TAB PO PRN (22:45)
[2023-04-05] MEDS: ACETAMINOPHEN TAB 650MG DOSE (2X325MG) PO PRN (03:56)
[2023-04-05] MEDS ORDERED: ONDANSETRON 4MG 2ML VIAL IV ONE (04:00)
[2023-04-05] MEDS ORDERED: ONDANSETRON 4MG TAB PO ONE (04:00)
[2023-04-05 05:00] VITALS: BP 122/66; TEMP 98.6; O2SAT 92
[2023-04-05 05:59] LABS: HEMATOCRIT 35.7 % (36.0-47.0); HEMOGLOBIN 11.5 g/dl (12.0-15.5); MEAN CORPUSCULAR HEMOGLOBIN 30.6 pg (27.0-33.0); MEAN CORPUSCULAR HGB CONC 32.2 g/dl (32.0-36.5); MEAN CORPUSCULAR VOLUME 94.9 fl (80.0-96.0); PLATELET COUNT, AUTOMATED 274 10^3/uL (150-450); RED BLOOD COUNT 3.76 10^6/uL (4.00-5.40); WHITE BLOOD COUNT 12.2 10^3/uL (4.0-10.0)
[2023-04-05 06:14] LABS: CALCIUM LEVEL 9.4 MG/DL (8.3-10.6); CREATININE FOR GFR 1.03 MG/DL (0.55-1.30); GLOMERULAR FILTRATION RATE 54.9 (>32); MAGNESIUM LEVEL 1.6 MG/DL (1.8-2.4)
[2023-04-05] MEDS: SPIRONOLACTONE 25 MG TAB PO SCH (10:04)
[2023-04-05] MEDS: ATORVASTATIN 20 MG TAB PO SCH (10:04)
[2023-04-05] MEDS: CitaloPRAM (CeleXA) 20 MG TAB PO SCH (10:05)
[2023-04-05] MEDS: CYANOCOBALAMIN 500 MCG TAB PO SCH (10:05)
[2023-04-05] MEDS: allopurinoL 100 MG TAB PO SCH (10:05)
[2023-04-05] MEDS: APIXABAN 5 MG TAB (ELIQUIS) PO SCH ×2 (10:05→20:22)
[2023-04-05] MEDS: PANTOPRAZOLE 40MG TAB (PROTONIX) PO SCH (10:06)
[2023-04-05] MEDS: METOPROLOL SUCC (TopROL XL) 50MG **XL** TAB PO SCH (10:06)
[2023-04-05] MEDS: PERCOCET 5MG/325MG TAB PO SCH ×3 (10:06→20:24)
[2023-04-05] MEDS: busPIRone 10 MG TAB PO SCH ×3 (10:06→20:22)
[2023-04-05] MEDS: GABAPENTIN 300 MG CAP PO SCH ×3 (10:06→20:22)
[2023-04-05] MEDS: FLUTICASONE PROP 0.05% NASAL SPRAY 16 GM (FLONASE) SCH (10:07)
[2023-04-05] MEDS: traZODone 50 MG TAB PO SCH (20:22)
[2023-04-05] MEDS: oxyCODONE 5MG TAB PO PRN (22:20)
[2023-04-06 06:00] VITALS: BP 130/73; TEMP 97.7; O2SAT 97
[2023-04-06] MEDS: busPIRone 10 MG TAB PO SCH ×3 (08:23→20:17)
[2023-04-06] MEDS: CitaloPRAM (CeleXA) 20 MG TAB PO SCH (08:23)
[2023-04-06] MEDS: GABAPENTIN 300 MG CAP PO SCH ×3 (08:23→20:17)
[2023-04-06] MEDS: PANTOPRAZOLE 40MG TAB (PROTONIX) PO SCH (08:23)
[2023-04-06] MEDS: APIXABAN 5 MG TAB (ELIQUIS) PO SCH ×2 (08:23→20:18)
[2023-04-06] MEDS: CYANOCOBALAMIN 500 MCG TAB PO SCH (08:24)
[2023-04-06] MEDS: SPIRONOLACTONE 25 MG TAB PO SCH (08:24)
[2023-04-06] MEDS: oxyCODONE 5MG TAB PO PRN (08:25)
[2023-04-06] MEDS: PERCOCET 5MG/325MG TAB PO SCH ×3 (08:25→20:19)
[2023-04-06] MEDS: ATORVASTATIN 20 MG TAB PO SCH (08:26)
[2023-04-06] MEDS: allopurinoL 100 MG TAB PO SCH (08:26)
[2023-04-06] MEDS: METOPROLOL SUCC (TopROL XL) 50MG **XL** TAB PO SCH (08:27)
[2023-04-06] MEDS: FLUTICASONE PROP 0.05% NASAL SPRAY 16 GM (FLONASE) SCH (08:31)
[2023-04-06] MEDS: traZODone 50 MG TAB PO SCH (20:17)
[2023-04-06] MEDS: MIRALAX *UNIT DOSE* 17GM PACKET PO PRN (20:27)
[2023-04-07] MEDS: oxyCODONE 5MG TAB PO PRN (03:52)
[2023-04-07 05:52] VITALS: BP 114/61; TEMP 97.9; O2SAT 95
[2023-04-07] MEDS: CYANOCOBALAMIN 500 MCG TAB PO SCH (08:31)
[2023-04-07] MEDS: allopurinoL 100 MG TAB PO SCH (08:32)
[2023-04-07] MEDS: busPIRone 10 MG TAB PO SCH ×3 (08:32→20:22)
[2023-04-07] MEDS: CitaloPRAM (CeleXA) 20 MG TAB PO SCH (08:33)
[2023-04-07] MEDS: ATORVASTATIN 20 MG TAB PO SCH (08:33)
[2023-04-07] MEDS: PANTOPRAZOLE 40MG TAB (PROTONIX) PO SCH (08:34)
[2023-04-07] MEDS: SPIRONOLACTONE 25 MG TAB PO SCH (08:34)
[2023-04-07] MEDS: GABAPENTIN 300 MG CAP PO SCH ×3 (08:34→20:23)
[2023-04-07] MEDS: APIXABAN 5 MG TAB (ELIQUIS) PO SCH ×2 (08:34→20:23)
[2023-04-07] MEDS: METOPROLOL SUCC (TopROL XL) 50MG **XL** TAB PO SCH (08:34)
[2023-04-07] MEDS: PERCOCET 5MG/325MG TAB PO SCH ×3 (08:35→20:24)
[2023-04-07] MEDS: FLUTICASONE PROP 0.05% NASAL SPRAY 16 GM (FLONASE) SCH (08:35)
[2023-04-07] MEDS: traZODone 50 MG TAB PO SCH (20:23)
[2023-04-08 06:00] VITALS: BP 127/62; TEMP 97.5; O2SAT 95
[2023-04-08] MEDS: ATORVASTATIN 20 MG TAB PO SCH (08:45)
[2023-04-08] MEDS: SENOKOT S TAB PO PRN (08:45)
[2023-04-08] MEDS: allopurinoL 100 MG TAB PO SCH (08:45)
[2023-04-08] MEDS: GABAPENTIN 300 MG CAP PO SCH ×3 (08:45→20:02)
[2023-04-08] MEDS: SPIRONOLACTONE 25 MG TAB PO SCH (08:45)
[2023-04-08] MEDS: PANTOPRAZOLE 40MG TAB (PROTONIX) PO SCH (08:45)
[2023-04-08] MEDS: CYANOCOBALAMIN 500 MCG TAB PO SCH (08:46)
[2023-04-08] MEDS: busPIRone 10 MG TAB PO SCH ×3 (08:47→20:02)
[2023-04-08] MEDS: CitaloPRAM (CeleXA) 20 MG TAB PO SCH (08:47)
[2023-04-08] MEDS: APIXABAN 5 MG TAB (ELIQUIS) PO SCH ×2 (08:47→20:02)
[2023-04-08] MEDS: METOPROLOL SUCC (TopROL XL) 50MG **XL** TAB PO SCH (08:47)
[2023-04-08] MEDS: PERCOCET 5MG/325MG TAB PO SCH ×3 (08:48→20:03)
[2023-04-08] MEDS: FLUTICASONE PROP 0.05% NASAL SPRAY 16 GM (FLONASE) SCH (08:49)
[2023-04-08] MEDS: traZODone 50 MG TAB PO SCH (20:02)
[2023-04-09 06:00] VITALS: BP 116/58; TEMP 97.6; O2SAT 93
[2023-04-09] MEDS: PANTOPRAZOLE 40MG TAB (PROTONIX) PO SCH (08:17)
[2023-04-09] MEDS: GABAPENTIN 300 MG CAP PO SCH ×3 (08:17→21:42)
[2023-04-09] MEDS: SPIRONOLACTONE 25 MG TAB PO SCH (08:17)
[2023-04-09] MEDS: ATORVASTATIN 20 MG TAB PO SCH (08:17)
[2023-04-09] MEDS: allopurinoL 100 MG TAB PO SCH (08:17)
[2023-04-09] MEDS: busPIRone 10 MG TAB PO SCH ×3 (08:19→21:43)
[2023-04-09] MEDS: METOPROLOL SUCC (TopROL XL) 50MG **XL** TAB PO SCH (08:19)
[2023-04-09] MEDS: APIXABAN 5 MG TAB (ELIQUIS) PO SCH ×2 (08:19→21:42)
[2023-04-09] MEDS: CitaloPRAM (CeleXA) 20 MG TAB PO SCH (08:19)
[2023-04-09] MEDS: CYANOCOBALAMIN 500 MCG TAB PO SCH (08:19)
[2023-04-09] MEDS: PERCOCET 5MG/325MG TAB PO SCH ×3 (08:20→21:42)
[2023-04-09] MEDS: FLUTICASONE PROP 0.05% NASAL SPRAY 16 GM (FLONASE) SCH (08:20)
[2023-04-09] MEDS: traZODone 50 MG TAB PO SCH (21:43)
[2023-04-10 06:00] VITALS: BP 115/62; TEMP 97.5; O2SAT 96
[2023-04-10] MEDS: ATORVASTATIN 20 MG TAB PO SCH (09:35)
[2023-04-10] MEDS: PANTOPRAZOLE 40MG TAB (PROTONIX) PO SCH (09:35)
[2023-04-10] MEDS: CitaloPRAM (CeleXA) 20 MG TAB PO SCH (09:35)
[2023-04-10] MEDS: SPIRONOLACTONE 25 MG TAB PO SCH (09:35)
[2023-04-10 09:36] VITALS: BP 115/62
[2023-04-10] MEDS: busPIRone 10 MG TAB PO SCH (09:36)
[2023-04-10] MEDS: METOPROLOL SUCC (TopROL XL) 50MG **XL** TAB PO SCH (09:36)
[2023-04-10] MEDS: allopurinoL 100 MG TAB PO SCH (09:36)
[2023-04-10] MEDS: CYANOCOBALAMIN 500 MCG TAB PO SCH (09:37)
[2023-04-10] MEDS: APIXABAN 5 MG TAB (ELIQUIS) PO SCH (09:37)
[2023-04-10] MEDS: GABAPENTIN 300 MG CAP PO SCH (09:37)
[2023-04-10] MEDS: PERCOCET 5MG/325MG TAB PO SCH (09:38)
[2023-04-10] MEDS: FLUTICASONE PROP 0.05% NASAL SPRAY 16 GM (FLONASE) SCH (09:38)
== END 2023-04-10 12:02 ==
LOC: EDBD 13:02 → M ED 13:02 → M ED INP 13:03 → ENRESERV 19:53 → M PCU 21:07 → M MSPAV 03-30 14:41
PROVIDERS: ADMIT Internal Medicine; ATTEND Student in an Organized Health Care Education/Training Program
DX: R53.1 Weakness (principal); R29.810 Facial weakness; R51.9 Headache, unspecified; R20.0 Anesthesia of skin; R20.2 Paresthesia of skin; U07.1 COVID-19; I48.91 Unspecified atrial fibrillation; G93.89 Other specified disorders of brain; G31.1 Senile degeneration of brain, not elsewhere classified; I12.9 Hypertensive chronic kidney disease with stage 1 through stage 4 chronic kidney disease, or unspecified chronic kidney disease; N31.9 Neuromuscular dysfunction of bladder, unspecified; Z96.0 Presence of urogenital implants; M79.605 Pain in left leg; M54.9 Dorsalgia, unspecified; G89.29 Other chronic pain; N18.30 Chronic kidney disease, stage 3 unspecified; M10.9 Gout, unspecified; F41.9 Anxiety disorder, unspecified; K21.9 Gastro-esophageal reflux disease without esophagitis; G47.00 Insomnia, unspecified; D47.2 Monoclonal gammopathy; K76.0 Fatty (change of) liver, not elsewhere classified; G47.33 Obstructive sleep apnea (adult) (pediatric); J45.909 Unspecified asthma, uncomplicated; K59.00 Constipation, unspecified; E53.8 Deficiency of other specified B group vitamins; Z91.041 Radiographic dye allergy status; Z91.040 Latex allergy status; Z88.5 Allergy status to narcotic agent; Z88.8 Allergy status to other drugs, medicaments and biological substances; F11.20 Opioid dependence, uncomplicated; Z79.899 Other long term (current) drug therapy; Z86.711 Personal history of pulmonary embolism; Z89.511 Acquired absence of right leg below knee; Z86.14 Personal history of Methicillin resistant Staphylococcus aureus infection; Z99.3 Dependence on wheelchair
CPT/HCPCS: 36415; 70450; 70544; 70547; 70551; 71045; 80047; 80048; 80061; 80076; 82550; 82553; 83036; 83735; 84439; 84443; 84484; 85025; 85027; 85610; 85730; 87426; 87631; 93005; 93041; 94760; 97161; 97165; 97530; 97535; 99285; G0378; J3475

== ENCOUNTER → 2023-04-03 | Outpatient (REF) | payer MEDICARE, MEDICAID ==
[~2023-04-03] MED LIST changes: +ACET-907 PO; +ASPI81TAEC PO; +ATOR40TA75 PO; +BISA10SU27 PR; +CITA20TA6 PO; +DESI13CR2 TOP; +FLEEENE12 PR; +LIDO1CRE2 TOP; +VALA500T5 PO
== END ==
PROVIDERS: ATTEND Internal Medicine
DX: R53.1 Weakness (principal); Z53.8 Procedure and treatment not carried out for other reasons

== ENCOUNTER → 2023-04-04 | Outpatient (CLI) | payer MEDICARE, MEDICAID | LOC: M SOG 07:56 | PROVIDERS: ATTEND Physician Assistant | DX: Z53.9 Procedure and treatment not carried out, unspecified reason (principal) ==

== ENCOUNTER → 2023-04-11 | Outpatient (CLI) | payer MEDICARE, MEDICAID | LOC: M SOG 08:08 | PROVIDERS: ATTEND Physician Assistant | DX: Z53.9 Procedure and treatment not carried out, unspecified reason (principal) ==

== ENCOUNTER → 2023-04-19 | Outpatient (REF) | payer MEDICARE, MEDICAID ==
[2023-04-19 09:50] LABS: HEMATOCRIT 36.1 % (36.0-47.0); HEMOGLOBIN 11.2 g/dl (12.0-15.5); MEAN CORPUSCULAR HEMOGLOBIN 29.8 pg (27.0-33.0); PLATELET COUNT, AUTOMATED 291 10^3/uL (150-450); RED BLOOD COUNT 3.76 10^6/uL (4.00-5.40); WHITE BLOOD COUNT 9.6 10^3/uL (4.0-10.0)
[2023-04-19 10:24] LABS: CALCIUM LEVEL 9.9 MG/DL (8.3-10.6); CREATININE FOR GFR 1.02 MG/DL (0.55-1.30); GLOMERULAR FILTRATION RATE 55.5 (>32); POTASSIUM SERUM 4.1 MMOL/L (3.5-5.1)
== END ==
PROVIDERS: ATTEND Physician Assistant
DX: G45.9 Transient cerebral ischemic attack, unspecified (principal)

== ENCOUNTER → 2023-04-25 | Outpatient (CLI) | payer MEDICARE, MEDICAID | LOC: M SOG 07:56 | PROVIDERS: ATTEND Physician Assistant | DX: M25.572 Pain in left ankle and joints of left foot (principal) ==

== ENCOUNTER → 2023-04-26 | Outpatient (REF) | payer MEDICARE, MEDICAID ==
[2023-04-26 10:53] LABS: HEMATOCRIT 38.8 % (36.0-47.0); HEMOGLOBIN 12.4 g/dl (12.0-15.5); MEAN CORPUSCULAR HEMOGLOBIN 30.8 pg (27.0-33.0); MEAN CORPUSCULAR VOLUME 96.3 fl (80.0-96.0); PLATELET COUNT, AUTOMATED 296 10^3/uL (150-450); RED BLOOD COUNT 4.03 10^6/uL (4.00-5.40); WHITE BLOOD COUNT 10.3 10^3/uL (4.0-10.0)
[2023-04-26 11:20] LABS: BLOOD UREA NITROGEN 9 MG/DL (9-23); CALCIUM LEVEL 9.9 MG/DL (8.3-10.6); CARBON DIOXIDE LEVEL 27 MMOL/L (20-31); CHLORIDE LEVEL 103 MMOL/L (98-107); CREATININE FOR GFR 0.95 MG/DL (0.55-1.30); GLOMERULAR FILTRATION RATE > 60.0 (>32); GLUCOSE, FASTING 128 MG/DL (74-106); POTASSIUM SERUM 4.6 MMOL/L (3.5-5.1); SODIUM LEVEL 135 MMOL/L (136-145)
== END ==
PROVIDERS: ATTEND Physician Assistant
DX: G45.9 Transient cerebral ischemic attack, unspecified (principal)

== ENCOUNTER → 2023-05-29 | Outpatient (REF) | payer MEDICARE, MEDICAID ==
[2023-05-29 12:36] LABS: HEMOGLOBIN A1c 5.4 % (4.0-6.0)
[2023-06-11 15:07] LABS: CERULOPLASMIN 23.2 mg/dL (19.0-39.0); COPPER PLASMA 112 ug/dL (80-158); VITAMIN B1 LEVEL WHOLE BLOOD 150.5 nmol/L (66.5-200.0); VITAMIN E(ALPHA TOCOPHEROL) 5.9 mg/L (9.0-29.0); VITAMIN E(GAMMA TOCOPHEROL) 1.5 mg/L (0.5-4.9)
== END ==
PROVIDERS: ATTEND Physician Assistant
DX: M10.9 Gout, unspecified (principal); E11.9 Type 2 diabetes mellitus without complications

== ENCOUNTER → 2023-06-05 | Outpatient (REF) | payer MEDICARE, MEDICAID ==
[2023-06-06 09:56] LABS: CALCIUM LEVEL 9.8 MG/DL (8.3-10.6); CARBON DIOXIDE LEVEL 28.1 MMOL/L (20-31); CREATININE FOR GFR 1.04 MG/DL (0.55-1.30); GLOMERULAR FILTRATION RATE 54.1 (>32); HEMATOCRIT 38.4 % (36.0-47.0); HEMOGLOBIN 12.2 g/dl (12.0-15.5); MEAN CORPUSCULAR HEMOGLOBIN 30.7 pg (27.0-33.0); MEAN CORPUSCULAR HGB CONC 31.8 g/dl (32.0-36.5); MEAN CORPUSCULAR VOLUME 96.5 fl (80.0-96.0); PLATELET COUNT, AUTOMATED 284 10^3/uL (150-450); POTASSIUM SERUM 4.2 MMOL/L (3.5-5.1); RED BLOOD COUNT 3.98 10^6/uL (4.00-5.40)
== END ==
PROVIDERS: ATTEND Internal Medicine
DX: Z01.818 Encounter for other preprocedural examination (principal)

== ENCOUNTER → 2023-06-06 | Outpatient (CLI) | payer MEDICARE, MEDICAID | LOC: M SOG 07:51 | PROVIDERS: ATTEND Physician Assistant | DX: Z53.9 Procedure and treatment not carried out, unspecified reason (principal) ==

== ENCOUNTER → 2023-06-06 | Outpatient (CLI) | payer MEDICARE, MEDICAID ==
[2023-06-06 09:25] LABS: HEMATOCRIT 39.4 % (36.0-47.0); HEMOGLOBIN 12.3 g/dl (12.0-15.5); MEAN CORPUSCULAR HEMOGLOBIN 30.4 pg (27.0-33.0); MEAN CORPUSCULAR HGB CONC 31.2 g/dl (32.0-36.5); MEAN CORPUSCULAR VOLUME 97.5 fl (80.0-96.0); PLATELET COUNT, AUTOMATED 266 10^3/uL (150-450); RED BLOOD COUNT 4.04 10^6/uL (4.00-5.40); WHITE BLOOD COUNT 9.8 10^3/uL (4.0-10.0)
[2023-06-06 10:02] LABS: CALCIUM LEVEL 9.3 MG/DL (8.3-10.6); CREATININE FOR GFR 1.07 MG/DL (0.55-1.30); GLOMERULAR FILTRATION RATE 52.4 (>32); POTASSIUM SERUM 4.3 MMOL/L (3.5-5.1)
== END ==
LOC: M RAD 08:09
PROVIDERS: ATTEND Physician Assistant
DX: Z01.818 Encounter for other preprocedural examination (principal); R00.1 Bradycardia, unspecified; I45.10 Unspecified right bundle-branch block

== ENCOUNTER → 2023-06-12 | Outpatient (REF) | payer MEDICARE, MEDICAID ==
[2023-06-12 10:57] LABS: HEMOGLOBIN 12.2 g/dl (12.0-15.5); MEAN CORPUSCULAR HEMOGLOBIN 30.5 pg (27.0-33.0); MEAN CORPUSCULAR HGB CONC 31.3 g/dl (32.0-36.5); MEAN CORPUSCULAR VOLUME 97.5 fl (80.0-96.0); PLATELET COUNT, AUTOMATED 270 10^3/uL (150-450); WHITE BLOOD COUNT 9.2 10^3/uL (4.0-10.0)
[2023-06-12 11:13] LABS: CALCIUM LEVEL 9.5 MG/DL (8.3-10.6); CREATININE FOR GFR 1.04 MG/DL (0.55-1.30); GLOMERULAR FILTRATION RATE 54.1 (>32); POTASSIUM SERUM 4.3 MMOL/L (3.5-5.1)
== END ==
PROVIDERS: ATTEND Internal Medicine
DX: Z86.73 Personal history of transient ischemic attack (TIA), and cerebral infarction without residual deficits (principal)

== ENCOUNTER → 2023-06-20 | Outpatient (CLI) | payer MEDICARE, MEDICAID | LOC: M SOG 07:50 | PROVIDERS: ATTEND Physician Assistant | DX: Z53.9 Procedure and treatment not carried out, unspecified reason (principal) ==

== ENCOUNTER → 2023-07-10 | Outpatient (REF) | payer MEDICARE, MEDICAID ==
[2023-07-10 11:35] LABS: APPEARANCE, URINE CLOUDY (CLEAR); BACTERIA, URINE AUTO 2+ (NEGATIVE); BILIRUBIN, URINE AUTO NEGATIVE (NEGATIVE); BLOOD, URINE BLOOD 2+ (NEGATIVE); COLOR, URINE YELLOW (YELLOW); GLUCOSE, URINE (UA) AUTO NEGATIVE (NEGATIVE); KETONE, URINE AUTO NEGATIVE (NEGATIVE); LEUKOCYTE ESTERASE, URINE AUTO 3+ (NEGATIVE); NITRITE, URINE AUTO POSITIVE (NEGATIVE); PROTEIN, URINE AUTO NEGATIVE (NEGATIVE); RBC, URINE AUTO 3 /HPF (0-3); SPECIFIC GRAVITY URINE AUTO 1.008 (1.002-1.035); SQUAMOUS EPITHELIAL CELL UR AU 2 /HPF (0-6); UROBILINOGEN, URINE AUTO 0.2 mg/dL (0.0-2.0); WBC, URINE AUTO 39 /HPF (0-3)
== END ==
PROVIDERS: ATTEND Internal Medicine
DX: G45.9 Transient cerebral ischemic attack, unspecified (principal); Z79.899 Other long term (current) drug therapy

== ENCOUNTER → 2023-07-14 | Outpatient (REF) | payer MEDICARE, MEDICAID ==
[~2023-07-14] MED LIST changes: +BACT800T5 PO; +MACR100C43 PO
[2023-07-14 09:56] LABS: HEMATOCRIT 36.4 % (36.0-47.0); HEMOGLOBIN 11.8 g/dl (12.0-15.5); MEAN CORPUSCULAR HEMOGLOBIN 30.5 pg (27.0-33.0); MEAN CORPUSCULAR HGB CONC 32.4 g/dl (32.0-36.5); MEAN CORPUSCULAR VOLUME 94.1 fl (80.0-96.0); PLATELET COUNT, AUTOMATED 233 10^3/uL (150-450); RED BLOOD COUNT 3.87 10^6/uL (4.00-5.40); WHITE BLOOD COUNT 9.2 10^3/uL (4.0-10.0)
[2023-07-14 10:17] LABS: BLOOD UREA NITROGEN 13 MG/DL (9-23); CALCIUM LEVEL 9.3 MG/DL (8.3-10.6); CARBON DIOXIDE LEVEL 30 MMOL/L (20-31); CHLORIDE LEVEL 99 MMOL/L (98-107); CREATININE FOR GFR 0.93 MG/DL (0.55-1.30); GLOMERULAR FILTRATION RATE > 60.0 (>32); GLUCOSE, FASTING 117 MG/DL (74-106); POTASSIUM SERUM 4.5 MMOL/L (3.5-5.1); SODIUM LEVEL 135 MMOL/L (136-145)
== END ==
PROVIDERS: ATTEND Internal Medicine
DX: Z01.818 Encounter for other preprocedural examination (principal)

== ENCOUNTER 2023-07-20 06:10 | Day surgery (SDC) | payer MEDICARE, MEDICAID ==
[~2023-07-20] VITALS: Ht 165.1 cm; Wt 75.7 kg
[~2023-07-20 06:10] MED LIST changes: -BACT800T5 PO; -MACR100C43 PO; +ceFAZolin SOD 2 GM in IV 1 EA IV ONE
[2023-07-20] MEDS ORDERED: LR 1,000 ML IV SCH ×2 (06:30→09:55)
[2023-07-20] MEDS ORDERED: propofoL 200 MG/20 ML VIAL As Ordered ONE (07:08)
[2023-07-20] MEDS ORDERED: LIDOCAINE 2% INJ 100 MG/5 ML SYRINGE As Ordered ONE (07:08)
[2023-07-20] MEDS ORDERED: ROCURONIUM BROMIDE 50MG/5ML VIAL As Ordered ONE (07:08)
[2023-07-20] MEDS ORDERED: fentaNYL 100 MCG/2 ML INJECTION As Ordered ONE (07:09)
[2023-07-20] MEDS ORDERED: ONDANSETRON 4MG 2ML VIAL As Ordered ONE (07:12)
[2023-07-20] MEDS ORDERED: VANCOMYCIN HCL 750 MG, VIAL MATE ADAPTER 1 EACH in D5W 250 ML IV ONE (07:20)
[2023-07-20] MEDS: VANCOMYCIN HCL 500 MG in D5W MINI-BAG PLUS 100 ML IV ONE (07:45)
[2023-07-20] MEDS: LevoFLOXacin IV 500 MG in IV 1 EA IV ONE (08:00)
[2023-07-20] MEDS: LIDOCAINE 1% SDV 30ML VIAL As Ordered ONE (08:44)
[2023-07-20] MEDS ORDERED: ACETAMINOPHEN 1000MG 100ML IV BAG As Ordered ONE (09:00)
[2023-07-20] MEDS ORDERED: SUGAMMADEX SODIUM 500 MG/5 ML VIAL (BRIDION) As Ordered ONE (09:29)
[2023-07-20] MEDS ORDERED: ONDANSETRON 4MG 2ML VIAL IV PRN (09:55)
[2023-07-20] MEDS ORDERED: BACT800T5 PO (10:00)
[2023-07-20] MEDS ORDERED: MACR100C43 PO (10:00)
[2023-07-20] MEDS: fentaNYL 100 MCG/2 ML INJECTION IV PRN (10:08)
[2023-07-20] MEDS: oxyCODONE 5MG TAB PO PRN ×2 (10:19→12:11)
[2023-07-20 13:00] VITALS: BP 148/72; TEMP 97.7; O2SAT 94
== END 2023-07-20 13:15 | disposition home or self-care (01) ==
LOC: M SDC 06:10
PROVIDERS: ATTEND Urology
DX: R33.9 Retention of urine, unspecified (principal); N31.9 Neuromuscular dysfunction of bladder, unspecified; I48.91 Unspecified atrial fibrillation; I45.10 Unspecified right bundle-branch block; E11.9 Type 2 diabetes mellitus without complications; I10 Essential (primary) hypertension; D47.2 Monoclonal gammopathy; E78.00 Pure hypercholesterolemia, unspecified; Z79.82 Long term (current) use of aspirin; Z79.899 Other long term (current) drug therapy; K76.0 Fatty (change of) liver, not elsewhere classified; M10.9 Gout, unspecified; Z79.01 Long term (current) use of anticoagulants; Z90.49 Acquired absence of other specified parts of digestive tract; Z90.710 Acquired absence of both cervix and uterus; Z87.19 Personal history of other diseases of the digestive system; G47.30 Sleep apnea, unspecified; Z86.711 Personal history of pulmonary embolism; Z91.041 Radiographic dye allergy status; Z88.8 Allergy status to other drugs, medicaments and biological substances; Z88.5 Allergy status to narcotic agent
CPT/HCPCS: 51040; J0131; J1100; J1956; J2405; J3010; J3370

== ENCOUNTER → 2023-08-14 | Outpatient (REF) | payer MEDICARE, MEDICAID ==
[~2023-08-14] MED LIST changes: +BACT800T5 PO; +MACR100C43 PO; -ceFAZolin SOD 2 GM in IV 1 EA IV ONE
[2023-08-14 08:46] LABS: BASO # 0.1 10^3/uL (0.0-0.2); BASO % 0.5 % (0.0-1.0); EOS # 0.3 10^3/uL (0.0-0.5); EOS % 3.5 % (0.0-3.0); HEMATOCRIT 32.4 % (36.0-47.0); HEMOGLOBIN 10.4 g/dl (12.0-15.5); LYMPH # 1.5 10^3/uL (1.5-5.0); LYMPH % 15.8 % (24.0-44.0); MEAN CORPUSCULAR HEMOGLOBIN 30.7 pg (27.0-33.0); MEAN CORPUSCULAR HGB CONC 32.1 g/dl (32.0-36.5); MEAN CORPUSCULAR VOLUME 95.6 fl (80.0-96.0); MONO # 0.9 10^3/uL (0.0-0.8); MONO % 9.3 % (2.0-8.0); NEUTROPHILS # 6.7 10^3/uL (1.5-8.5); NEUTROPHILS % 70.5 % (36.0-66.0); PLATELET COUNT, AUTOMATED 243 10^3/uL (150-450); RED BLOOD COUNT 3.39 10^6/uL (4.00-5.40); WHITE BLOOD COUNT 9.5 10^3/uL (4.0-10.0)
[2023-08-14 09:18] LABS: ALBUMIN 2.7 G/DL (3.2-5.2); BLOOD UREA NITROGEN 10 MG/DL (9-23); CALCIUM LEVEL 9.3 MG/DL (8.3-10.6); CARBON DIOXIDE LEVEL 30 MMOL/L (20-31); CHLORIDE LEVEL 100 MMOL/L (98-107); CREATININE FOR GFR 0.91 MG/DL (0.55-1.30); GLOMERULAR FILTRATION RATE > 60.0 (>32); GLUCOSE, FASTING 88 MG/DL (74-106); PHOSPHORUS LEVEL 3.6 MG/DL (2.4-5.1); POTASSIUM SERUM 4.1 MMOL/L (3.5-5.1); PTH INTACT 36.7 PG/ML (18.5-88.0); SODIUM LEVEL 136 MMOL/L (136-145)
== END ==
LOC: EEVIPCON
PROVIDERS: ATTEND Internal Medicine
DX: N18.9 Chronic kidney disease, unspecified (principal)

== ENCOUNTER → 2023-09-07 | Outpatient (REF) | payer MEDICARE, MEDICAID | PROVIDERS: ATTEND Internal Medicine | DX: N39.0 Urinary tract infection, site not specified (principal) ==

== ENCOUNTER → 2023-09-08 | Outpatient (REF) | payer MEDICARE, MEDICAID ==
[2023-09-08 10:03] LABS: HEMATOCRIT 32.1 % (36.0-47.0); HEMOGLOBIN 10.6 g/dl (12.0-15.5); MEAN CORPUSCULAR HEMOGLOBIN 30.3 pg (27.0-33.0); MEAN CORPUSCULAR VOLUME 91.7 fl (80.0-96.0); PLATELET COUNT, AUTOMATED 312 10^3/uL (150-450); WHITE BLOOD COUNT 12.8 10^3/uL (4.0-10.0)
[2023-09-08 10:36] LABS: CALCIUM LEVEL 9.1 MG/DL (8.3-10.6); CREATININE FOR GFR 1.32 MG/DL (0.55-1.30); GLOMERULAR FILTRATION RATE 41.1 (>32); POTASSIUM SERUM 4.3 MMOL/L (3.5-5.1)
== END ==
PROVIDERS: ATTEND Internal Medicine
DX: N39.0 Urinary tract infection, site not specified (principal)

== ENCOUNTER → 2023-09-09 | Outpatient (REF) | payer MEDICARE, MEDICAID ==
[2023-09-09 20:18] LABS: APPEARANCE, URINE HAZY (CLEAR); BACTERIA, URINE AUTO NEGATIVE (NEGATIVE); BILIRUBIN, URINE AUTO NEGATIVE (NEGATIVE); BLOOD, URINE BLOOD 3+ (NEGATIVE); COLOR, URINE AMBER (YELLOW); GLUCOSE, URINE (UA) AUTO NEGATIVE (NEGATIVE); KETONE, URINE AUTO NEGATIVE (NEGATIVE); LEUKOCYTE ESTERASE, URINE AUTO 1+ (NEGATIVE); NITRITE, URINE AUTO NEGATIVE (NEGATIVE); PROTEIN, URINE AUTO 1+ mg/dL (NEGATIVE); RBC, URINE AUTO TNTC /HPF (0-3); SPECIFIC GRAVITY URINE AUTO 1.014 (1.002-1.035); SQUAMOUS EPITHELIAL CELL UR AU 0 /HPF (0-6); WBC, URINE AUTO 34 /HPF (0-3)
== END ==
PROVIDERS: ATTEND Internal Medicine
DX: R50.9 Fever, unspecified (principal)

== ENCOUNTER → 2023-09-11 | Outpatient (REF) | payer MEDICARE, MEDICAID ==
[2023-09-11 17:40] LABS: HEMATOCRIT 33.3 % (36.0-47.0); HEMOGLOBIN 10.8 g/dl (12.0-15.5); MEAN CORPUSCULAR HEMOGLOBIN 30.2 pg (27.0-33.0); MEAN CORPUSCULAR HGB CONC 32.4 g/dl (32.0-36.5); PLATELET COUNT, AUTOMATED 343 10^3/uL (150-450); RED BLOOD COUNT 3.58 10^6/uL (4.00-5.40); WHITE BLOOD COUNT 10.2 10^3/uL (4.0-10.0)
[2023-09-11 17:58] LABS: BLOOD UREA NITROGEN 19 MG/DL (9-23); CALCIUM LEVEL 9.6 MG/DL (8.3-10.6); CARBON DIOXIDE LEVEL 28 MMOL/L (20-31); CHLORIDE LEVEL 98 MMOL/L (98-107); CREATININE FOR GFR 0.93 MG/DL (0.55-1.30); GLOMERULAR FILTRATION RATE > 60.0 (>32); GLUCOSE, FASTING 130 MG/DL (74-106); POTASSIUM SERUM 4.3 MMOL/L (3.5-5.1); SODIUM LEVEL 134 MMOL/L (136-145)
== END ==
PROVIDERS: ATTEND Physician Assistant
DX: R41.0 Disorientation, unspecified (principal)

== ENCOUNTER → 2023-09-13 | Outpatient (REF) | payer MEDICARE, MEDICAID ==
[2023-09-13 12:38] LABS: HEMATOCRIT 32.4 % (36.0-47.0); HEMOGLOBIN 10.4 g/dl (12.0-15.5); MEAN CORPUSCULAR HEMOGLOBIN 29.9 pg (27.0-33.0); MEAN CORPUSCULAR HGB CONC 32.1 g/dl (32.0-36.5); MEAN CORPUSCULAR VOLUME 93.1 fl (80.0-96.0); PLATELET COUNT, AUTOMATED 306 10^3/uL (150-450); RED BLOOD COUNT 3.48 10^6/uL (4.00-5.40); WHITE BLOOD COUNT 10.8 10^3/uL (4.0-10.0)
[2023-09-13 13:17] LABS: BLOOD UREA NITROGEN 18 MG/DL (9-23); CALCIUM LEVEL 9.3 MG/DL (8.3-10.6); CARBON DIOXIDE LEVEL 25 MMOL/L (20-31); CHLORIDE LEVEL 101 MMOL/L (98-107); CREATININE FOR GFR 0.92 MG/DL (0.55-1.30); GLOMERULAR FILTRATION RATE > 60.0 (>32); GLUCOSE, FASTING 155 MG/DL (74-106); POTASSIUM SERUM 4.6 MMOL/L (3.5-5.1); SODIUM LEVEL 133 MMOL/L (136-145)
== END ==
PROVIDERS: ATTEND Physician Assistant
DX: N39.0 Urinary tract infection, site not specified (principal)

== ENCOUNTER → 2023-10-09 | Outpatient (REF) | payer MEDICARE, MEDICAID ==
[2023-10-09 12:04] LABS: HEMATOCRIT 35.1 % (36.0-47.0); HEMOGLOBIN 11.2 g/dl (12.0-15.5); MEAN CORPUSCULAR HEMOGLOBIN 30.4 pg (27.0-33.0); MEAN CORPUSCULAR HGB CONC 31.9 g/dl (32.0-36.5); MEAN CORPUSCULAR VOLUME 95.4 fl (80.0-96.0); PLATELET COUNT, AUTOMATED 284 10^3/uL (150-450); RED BLOOD COUNT 3.68 10^6/uL (4.00-5.40); WHITE BLOOD COUNT 9.7 10^3/uL (4.0-10.0)
[2023-10-09 12:28] LABS: BLOOD UREA NITROGEN 15 MG/DL (9-23); CALCIUM LEVEL 9.6 MG/DL (8.3-10.6); CARBON DIOXIDE LEVEL 30 MMOL/L (20-31); CHLORIDE LEVEL 103 MMOL/L (98-107); CREATININE FOR GFR 0.91 MG/DL (0.55-1.30); GLOMERULAR FILTRATION RATE > 60.0 (>32); GLUCOSE, FASTING 91 MG/DL (74-106); POTASSIUM SERUM 4.4 MMOL/L (3.5-5.1); SODIUM LEVEL 137 MMOL/L (136-145)
== END ==
PROVIDERS: ATTEND Internal Medicine
DX: G45.9 Transient cerebral ischemic attack, unspecified (principal)

== ENCOUNTER → 2023-10-11 | Outpatient (REF) | payer MEDICARE, MEDICAID ==
[2023-10-11 11:22] LABS: HEMATOCRIT 34.5 % (36.0-47.0); MEAN CORPUSCULAR HEMOGLOBIN 30.3 pg (27.0-33.0); MEAN CORPUSCULAR HGB CONC 31.9 g/dl (32.0-36.5); PLATELET COUNT, AUTOMATED 273 10^3/uL (150-450); RED BLOOD COUNT 3.63 10^6/uL (4.00-5.40); WHITE BLOOD COUNT 8.3 10^3/uL (4.0-10.0)
[2023-10-11 11:52] LABS: BLOOD UREA NITROGEN 15 MG/DL (9-23); CALCIUM LEVEL 9.7 MG/DL (8.3-10.6); CARBON DIOXIDE LEVEL 30 MMOL/L (20-31); CHLORIDE LEVEL 100 MMOL/L (98-107); CREATININE FOR GFR 0.84 MG/DL (0.55-1.30); GLOMERULAR FILTRATION RATE > 60.0 (>32); GLUCOSE, FASTING 120 MG/DL (74-106); POTASSIUM SERUM 4.5 MMOL/L (3.5-5.1); SODIUM LEVEL 137 MMOL/L (136-145)
== END ==
PROVIDERS: ATTEND Physician Assistant
DX: I48.91 Unspecified atrial fibrillation (principal)

== ENCOUNTER → 2023-11-03 | Outpatient (REF) | payer MEDICARE, MEDICAID ==
[2023-11-03 17:51] LABS: APPEARANCE, URINE HAZY (CLEAR); BACTERIA, URINE AUTO 2+ (NEGATIVE); BILIRUBIN, URINE AUTO NEGATIVE (NEGATIVE); BLOOD, URINE BLOOD 3+ (NEGATIVE); COLOR, URINE AMBER (YELLOW); GLUCOSE, URINE (UA) AUTO NEGATIVE (NEGATIVE); KETONE, URINE AUTO NEGATIVE (NEGATIVE); LEUKOCYTE ESTERASE, URINE AUTO 3+ (NEGATIVE); MUCUS, URINE SMALL (NEGATIVE); NITRITE, URINE AUTO POSITIVE (NEGATIVE); PROTEIN, URINE AUTO 1+ mg/dL (NEGATIVE); RBC, URINE AUTO 149 /HPF (0-3); SPECIFIC GRAVITY URINE AUTO 1.014 (1.002-1.035); SQUAMOUS EPITHELIAL CELL UR AU 1 /HPF (0-6); WBC, URINE AUTO 129 /HPF (0-3)
== END ==
PROVIDERS: ATTEND Internal Medicine
DX: N39.0 Urinary tract infection, site not specified (principal)

== ENCOUNTER → 2023-11-08 | Outpatient (REF) | payer MEDICARE, MEDICAID ==
[2023-11-08 11:37] LABS: HEMATOCRIT 35.9 % (36.0-47.0); HEMOGLOBIN 11.6 g/dl (12.0-15.5); MEAN CORPUSCULAR HEMOGLOBIN 30.1 pg (27.0-33.0); MEAN CORPUSCULAR HGB CONC 32.3 g/dl (32.0-36.5); MEAN CORPUSCULAR VOLUME 93.2 fl (80.0-96.0); PLATELET COUNT, AUTOMATED 282 10^3/uL (150-450); RED BLOOD COUNT 3.85 10^6/uL (4.00-5.40); WHITE BLOOD COUNT 11.8 10^3/uL (4.0-10.0)
[2023-11-08 12:00] LABS: BLOOD UREA NITROGEN 24 MG/DL (9-23); CALCIUM LEVEL 10.2 MG/DL (8.3-10.6); CARBON DIOXIDE LEVEL 26 MMOL/L (20-31); CHLORIDE LEVEL 100 MMOL/L (98-107); GLOMERULAR FILTRATION RATE > 60.0 (>32); GLUCOSE, FASTING 154 MG/DL (74-106); POTASSIUM SERUM 4.2 MMOL/L (3.5-5.1); SODIUM LEVEL 133 MMOL/L (136-145)
== END ==
PROVIDERS: ATTEND Internal Medicine
DX: N39.0 Urinary tract infection, site not specified (principal)

== ENCOUNTER → 2023-11-27 | Outpatient (REF) | payer MEDICARE, MEDICAID ==
[2023-11-27 11:38] LABS: BASO # 0.1 10^3/uL (0.0-0.2); BASO % 0.5 % (0.0-1.0); EOS # 0.3 10^3/uL (0.0-0.5); EOS % 3.5 % (0.0-3.0); HEMATOCRIT 36.2 % (36.0-47.0); HEMOGLOBIN 11.6 g/dl (12.0-15.5); LYMPH # 1.9 10^3/uL (1.5-5.0); LYMPH % 20.6 % (24.0-44.0); MEAN CORPUSCULAR HEMOGLOBIN 30.1 pg (27.0-33.0); MONO # 0.6 10^3/uL (0.0-0.8); MONO % 6.7 % (2.0-8.0); NEUTROPHILS # 6.4 10^3/uL (1.5-8.5); NEUTROPHILS % 68.4 % (36.0-66.0); PLATELET COUNT, AUTOMATED 315 10^3/uL (150-450); RED BLOOD COUNT 3.85 10^6/uL (4.00-5.40); WHITE BLOOD COUNT 9.4 10^3/uL (4.0-10.0)
[2023-11-27 11:51] LABS: ALBUMIN 3.3 G/DL (3.2-5.2); BLOOD UREA NITROGEN 12 MG/DL (9-23); CARBON DIOXIDE LEVEL 30 MMOL/L (20-31); CHLORIDE LEVEL 97 MMOL/L (98-107); CREATININE FOR GFR 0.82 MG/DL (0.55-1.30); GLOMERULAR FILTRATION RATE > 60.0 (>32); GLUCOSE, FASTING 92 MG/DL (74-106); PHOSPHORUS LEVEL 4.3 MG/DL (2.4-5.1); POTASSIUM SERUM 4.4 MMOL/L (3.5-5.1); SODIUM LEVEL 132 MMOL/L (136-145)
== END ==
PROVIDERS: ATTEND Internal Medicine
DX: N18.9 Chronic kidney disease, unspecified (principal)

== ENCOUNTER → 2023-11-30 | Outpatient (REF) | payer MEDICARE, MEDICAID | PROVIDERS: ATTEND Physician Assistant | DX: N39.0 Urinary tract infection, site not specified (principal) ==

== ENCOUNTER → 2024-01-08 | Outpatient (REF) | payer MEDICARE, MEDICAID ==
[~2024-01-08] MED LIST changes: +GABA-1490 PO; -GABA600T4 PO
[2024-01-08 09:40] LABS: HEMATOCRIT 33.4 % (36.0-47.0); HEMOGLOBIN 10.7 g/dl (12.0-15.5); MEAN CORPUSCULAR HEMOGLOBIN 30.5 pg (27.0-33.0); MEAN CORPUSCULAR VOLUME 95.2 fl (80.0-96.0); PLATELET COUNT, AUTOMATED 216 10^3/uL (150-450); RED BLOOD COUNT 3.51 10^6/uL (4.00-5.40)
[2024-01-08 10:41] LABS: BLOOD UREA NITROGEN 20 MG/DL (9-23); CALCIUM LEVEL 9.5 MG/DL (8.3-10.6); CARBON DIOXIDE LEVEL 29 MMOL/L (20-31); CHLORIDE LEVEL 103 MMOL/L (98-107); CREATININE FOR GFR 0.95 MG/DL (0.55-1.30); GLOMERULAR FILTRATION RATE > 60.0 (>32); GLUCOSE, FASTING 75 MG/DL (74-106); POTASSIUM SERUM 4.5 MMOL/L (3.5-5.1); SODIUM LEVEL 137 MMOL/L (136-145)
== END ==
PROVIDERS: ATTEND Internal Medicine
DX: G45.9 Transient cerebral ischemic attack, unspecified (principal)

== ENCOUNTER 2024-02-09 22:52 | Inpatient (IN) | payer BC, MEDICAID, MEDICARE ==
[~2024-02-09] VITALS: Ht 157.5 cm; Wt 73.4 kg
[~2024-02-09 22:52] MED LIST changes: +GABA-1172 PO; -GABA-282 PO
[2024-02-10 00:36] LABS: BASO # 0.1 10^3/uL (0.0-0.2); BASO % 0.5 % (0.0-1.0); EOS # 0.3 10^3/uL (0.0-0.5); EOS % 2.6 % (0.0-3.0); HEMATOCRIT 37.6 % (36.0-47.0); HEMOGLOBIN 12.3 g/dl (12.0-15.5); LYMPH # 2.8 10^3/uL (1.5-5.0); LYMPH % 23.9 % (24.0-44.0); MEAN CORPUSCULAR HEMOGLOBIN 30.7 pg (27.0-33.0); MEAN CORPUSCULAR HGB CONC 32.7 g/dl (32.0-36.5); MEAN CORPUSCULAR VOLUME 93.8 fl (80.0-96.0); MONO % 8.7 % (2.0-8.0); NEUTROPHILS # 7.5 10^3/uL (1.5-8.5); PLATELET COUNT, AUTOMATED 269 10^3/uL (150-450); RED BLOOD COUNT 4.01 10^6/uL (4.00-5.40); WHITE BLOOD COUNT 11.7 10^3/uL (4.0-10.0)
[2024-02-10 01:03] LABS: BLOOD UREA NITROGEN 19 MG/DL (9-23); CALCIUM LEVEL 10.2 MG/DL (8.3-10.6); CARBON DIOXIDE LEVEL 32 MMOL/L (20-31); CHLORIDE LEVEL 100 MMOL/L (98-107); CREATININE FOR GFR 0.97 MG/DL (0.55-1.30); GLOMERULAR FILTRATION RATE 58.7 (>32); GLUCOSE, FASTING 92 MG/DL (74-106); POTASSIUM SERUM 4.9 MMOL/L (3.5-5.1); SODIUM LEVEL 131 MMOL/L (136-145)
[2024-02-10] MEDS ORDERED: MED REC IN PROGRESS XX SCH (04:55)
[2024-02-10] MEDS ORDERED: DEXTROSE 50% 50ML SYRINGE IV PRN (05:10)
[2024-02-10] MEDS ORDERED: GLUCAGON INJ 1MG VIAL SC PRN (05:10)
[2024-02-10] MEDS ORDERED: GLUCOSE 4 GM CHEW PO PRN (05:10)
[2024-02-10] MEDS ORDERED: ACETAMINOPHEN *IV* 1,000 MG in IV 1 EA IV PRN (05:20)
[2024-02-10] MEDS: LR 1,000 ML IV SCH (06:23)
[2024-02-10] MEDS: INSULIN LISPRO (NovoLOG) PER UNIT SC SCH (06:23)
[2024-02-10] MEDS: cefTRIAXone SOD 1 GM in DEXTROSE 5% (D5W) ADV/MINI-BAG 50 ML IV SCH (06:24)
[2024-02-10] MEDS: ONDANSETRON 4MG 2ML VIAL IV PRN (06:54)
[2024-02-10 07:49] LABS: BASO # 0.1 10^3/uL (0.0-0.2); BASO % 0.5 % (0.0-1.0); EOS # 0.3 10^3/uL (0.0-0.5); HEMATOCRIT 37.6 % (36.0-47.0); HEMOGLOBIN 11.9 g/dl (12.0-15.5); LYMPH # 2.1 10^3/uL (1.5-5.0); LYMPH % 20.3 % (24.0-44.0); MEAN CORPUSCULAR HEMOGLOBIN 29.9 pg (27.0-33.0); MEAN CORPUSCULAR HGB CONC 31.6 g/dl (32.0-36.5); MEAN CORPUSCULAR VOLUME 94.5 fl (80.0-96.0); MONO # 0.9 10^3/uL (0.0-0.8); NEUTROPHILS # 6.8 10^3/uL (1.5-8.5); NEUTROPHILS % 66.7 % (36.0-66.0); PLATELET COUNT, AUTOMATED 253 10^3/uL (150-450); RED BLOOD COUNT 3.98 10^6/uL (4.00-5.40); WHITE BLOOD COUNT 10.1 10^3/uL (4.0-10.0)
[2024-02-10 08:19] LABS: CALCIUM LEVEL 10.4 MG/DL (8.3-10.6); CREATININE FOR GFR 0.96 MG/DL (0.55-1.30); GLOMERULAR FILTRATION RATE 59.4 (>32); MAGNESIUM LEVEL 1.6 MG/DL (1.8-2.4); PHOSPHORUS LEVEL 4.1 MG/DL (2.4-5.1); POTASSIUM SERUM 4.8 MMOL/L (3.5-5.1)
[2024-02-10 08:20] LABS: THYROID STIMULATING HORMONE 1.871 uIU/ML (0.55-4.78)
[2024-02-10 08:21] LABS: FREE T4 1.49 NG/DL (0.89-1.76)
[2024-02-10] MEDS: PANTOPRAZOLE 40MG VIAL IV SCH (08:38)
[2024-02-10] MEDS: NEOSTIGMINE METHYLSULFATE INJ 2 MG in NS 50 ML IV ONE (08:39)
[2024-02-10 10:14] LABS: ALBUMIN 3.3 G/DL (3.2-5.2); BILIRUBIN,DIRECT 0.2 MG/DL (<0.4); BILIRUBIN,TOTAL 0.4 MG/DL (0.3-1.2); TOTAL PROTEIN 6.4 G/DL (5.7-8.2)
[2024-02-10 10:42] LABS: HEMOGLOBIN A1c 5.5 % (4.0-6.0)
[2024-02-10] MEDS ORDERED: ACID1TAB PO (11:19)
[2024-02-10] MEDS ORDERED: ALLO200T PO (11:19)
[2024-02-10] MEDS ORDERED: ASPI81TAEC PO (11:19)
[2024-02-10] MEDS ORDERED: LIDO5DIS41 TOP (11:19)
[2024-02-10] MEDS ORDERED: NITR50CA34 PO (11:19)
[2024-02-10] MEDS ORDERED: METO1TAB32 PO (11:19)
[2024-02-10] MEDS ORDERED: [UNRECOGNIZED DRUG - CODE] PO (11:19)
[2024-02-10] MEDS ORDERED: ONDA-83 PO (11:19)
[2024-02-10] MEDS ORDERED: OXYB15TA14 PO (11:19)
[2024-02-10] MEDS ORDERED: BACL5TAB2 PO (11:19)
[2024-02-10] MEDS ORDERED: MOM30SS2 PO (11:19)
[2024-02-10] MEDS ORDERED: CELE20TA PO (11:19)
[2024-02-10] MEDS ORDERED: ATOR40TA75 PO (11:19)
[2024-02-10] MEDS ORDERED: HOME MED LIST COMPLETE! XX SCH (11:30)
[2024-02-10] MEDS ORDERED: FLEET ENEMA PR PRN (11:50)
[2024-02-10] MEDS ORDERED: BISACODYL 10MG SUPP PR PRN (11:50)
[2024-02-10] MEDS ORDERED: MOM 30ML SUSPENSION UDC PO PRN (11:50)
[2024-02-10] MEDS: MAG SULF 1GM/100ML (MAG RUN) 1 GM in IV 1 EA IV SCH (11:53)
[2024-02-10] MEDS ORDERED: MAGNESIUM SULFATE 1GM/100ML D5W BAG (10MG/ML) As Ordered ONE (13:18)
[2024-02-10] MEDS: PERCOCET 5MG/325MG TAB PO PRN (13:29)
[2024-02-10] MEDS: allopurinoL 100 MG TAB PO SCH (13:29)
[2024-02-10] MEDS: LIDOCAINE 5% (LIDODERM) PATCH TOP SCH ×2 (13:31→13:32)
[2024-02-10] MEDS: MIRALAX *UNIT DOSE* 17GM PACKET PO SCH (13:32)
[2024-02-10] MEDS: oxyBUTYnin *DITROPAN XL* 5 MG TABCR PO SCH (15:11)
[2024-02-10] MEDS: ASPIRIN 81MG ENTERIC TABLET PO SCH (15:13)
[2024-02-10] MEDS: ENOXAPARIN 80MG/0.8ML SYRINGE (J1650 PER 10MG) SC SCH (15:18)
[2024-02-10 16:48] VITALS: BP 118/58; TEMP 96.9; O2SAT 97
[2024-02-10] MEDS: GABAPENTIN 300 MG CAP PO SCH (17:42)
[2024-02-10] MEDS: busPIRone 10 MG TAB PO SCH (17:42)
[2024-02-10] MEDS: LACTOBACILLUS ACIDOPHILUS CAP (BACID) PO SCH (17:42)
[2024-02-10 20:21] VITALS: BP 114/56; TEMP 97; O2SAT 95
[2024-02-10] MEDS: CitaloPRAM (CeleXA) 20 MG TAB PO SCH (21:00)
[2024-02-10] MEDS: ATORVASTATIN 20 MG TAB PO SCH (21:00)
[2024-02-10] MEDS: traZODone 50 MG TAB PO SCH (21:00)
[2024-02-10] MEDS: METHENAMINE HIPPURATE 1GM TABLET PO SCH (21:01)
[2024-02-10] MEDS: PERCOCET 5MG/325MG TAB PO SCH (21:02)
[2024-02-10 23:30] VITALS: BP 108/55; TEMP 96.9; O2SAT 95
[2024-02-11 04:38] VITALS: BP 115/57; TEMP 97; O2SAT 94
[2024-02-11 06:44] LABS: BASO # 0.1 10^3/uL (0.0-0.2); BASO % 0.5 % (0.0-1.0); EOS # 0.3 10^3/uL (0.0-0.5); EOS % 2.8 % (0.0-3.0); HEMATOCRIT 33.7 % (36.0-47.0); HEMOGLOBIN 10.9 g/dl (12.0-15.5); LYMPH # 2.6 10^3/uL (1.5-5.0); LYMPH % 23.8 % (24.0-44.0); MEAN CORPUSCULAR HEMOGLOBIN 30.4 pg (27.0-33.0); MEAN CORPUSCULAR HGB CONC 32.3 g/dl (32.0-36.5); MEAN CORPUSCULAR VOLUME 93.9 fl (80.0-96.0); MONO % 9.2 % (2.0-8.0); NEUTROPHILS % 63.3 % (36.0-66.0); PLATELET COUNT, AUTOMATED 233 10^3/uL (150-450); RED BLOOD COUNT 3.59 10^6/uL (4.00-5.40)
[2024-02-11 07:11] LABS: BLOOD UREA NITROGEN 12 MG/DL (9-23); CALCIUM LEVEL 10.1 MG/DL (8.3-10.6); CARBON DIOXIDE LEVEL 30 MMOL/L (20-31); CHLORIDE LEVEL 99 MMOL/L (98-107); CREATININE FOR GFR 0.81 MG/DL (0.55-1.30); GLOMERULAR FILTRATION RATE > 60.0 (>32); GLUCOSE, FASTING 85 MG/DL (74-106); MAGNESIUM LEVEL 1.8 MG/DL (1.8-2.4); POTASSIUM SERUM 4.4 MMOL/L (3.5-5.1); SODIUM LEVEL 133 MMOL/L (136-145)
[2024-02-11] MEDS ORDERED: GLUCOSE 4 GM CHEW PO PRN (07:40)
[2024-02-11] MEDS ORDERED: DEXTROSE 50% 50ML SYRINGE IV PRN (07:40)
[2024-02-11] MEDS ORDERED: GLUCAGON INJ 1MG VIAL SC PRN (07:40)
[2024-02-11 07:56] VITALS: BP 124/60; TEMP 96.6; O2SAT 96
[2024-02-11] MEDS: FLUBLOK(EGGFREE) TRIVAL(24-25) VACCINE PF 0.5ML SYRINGE 18YRS & OLDER IM.IMMUN ONE (09:16)
[2024-02-11] MEDS: METOPROLOL SUCC *XL* 25MG TAB (TopROL *XL*) PO SCH (09:31)
[2024-02-11] MEDS: PANTOPRAZOLE 40MG TAB (PROTONIX) PO SCH (09:32)
[2024-02-11] MEDS: SENOKOT S TAB PO SCH (09:32)
[2024-02-11] MEDS: SPIRONOLACTONE 25 MG TAB PO SCH (09:32)
[2024-02-11] MEDS: CYANOCOBALAMIN 500 MCG TAB PO SCH (09:33)
[2024-02-11] MEDS: APIXABAN 5 MG TAB (ELIQUIS) PO SCH (09:33)
[2024-02-11 12:00] VITALS: BP 98/50; TEMP 97.3; O2SAT 98
[2024-02-11] MEDS ORDERED: INSULIN LISPRO (NovoLOG) PER UNIT SC SCH ×2 (12:00→21:00)
[2024-02-11 20:08] VITALS: BP 98/62; TEMP 97.2; O2SAT 96
[2024-02-11 23:57] VITALS: TEMP 97.6; O2SAT 96
[2024-02-12 05:13] VITALS: BP 102/58; TEMP 97.3; O2SAT 94
[2024-02-12 06:06] LABS: BASO % 0.3 % (0.0-1.0); EOS # 0.3 10^3/uL (0.0-0.5); EOS % 3.5 % (0.0-3.0); HEMATOCRIT 30.3 % (36.0-47.0); LYMPH # 2.3 10^3/uL (1.5-5.0); MEAN CORPUSCULAR HEMOGLOBIN 30.9 pg (27.0-33.0); MEAN CORPUSCULAR VOLUME 93.5 fl (80.0-96.0); MONO # 0.9 10^3/uL (0.0-0.8); MONO % 9.4 % (2.0-8.0); NEUTROPHILS # 5.9 10^3/uL (1.5-8.5); NEUTROPHILS % 62.5 % (36.0-66.0); PLATELET COUNT, AUTOMATED 198 10^3/uL (150-450); RED BLOOD COUNT 3.24 10^6/uL (4.00-5.40); WHITE BLOOD COUNT 9.5 10^3/uL (4.0-10.0)
[2024-02-12 06:31] LABS: BLOOD UREA NITROGEN 11 MG/DL (9-23); CALCIUM LEVEL 9.9 MG/DL (8.3-10.6); CARBON DIOXIDE LEVEL 30 MMOL/L (20-31); CHLORIDE LEVEL 99 MMOL/L (98-107); CREATININE FOR GFR 0.84 MG/DL (0.55-1.30); GLOMERULAR FILTRATION RATE > 60.0 (>32); GLUCOSE, FASTING 97 MG/DL (74-106); MAGNESIUM LEVEL 1.4 MG/DL (1.8-2.4); POTASSIUM SERUM 4.3 MMOL/L (3.5-5.1); SODIUM LEVEL 131 MMOL/L (136-145)
[2024-02-12 07:46] VITALS: BP 115/56; TEMP 95.9; O2SAT 96
[2024-02-12] MEDS: MAGNESIUM OXIDE 400MG TAB (MAG-OX) PO SCH (08:30)
[2024-02-12] MEDS: MAG SULF 1GM/100ML (MAG RUN) 1 GM in IV 1 EA IV SCH (08:35)
[2024-02-12] MEDS: BISACODYL 10MG SUPP PR SCH (10:33)
[2024-02-12 12:00] VITALS: BP 98/51; TEMP 95.9; O2SAT 98
[2024-02-12 16:00] VITALS: BP 109/53; TEMP 96; O2SAT 95
[2024-02-12 16:20] VITALS: BP 106/55; TEMP 97; O2SAT 97
[2024-02-12 20:06] VITALS: BP 115/54; TEMP 98.6; O2SAT 97
[2024-02-12] MEDS: ACETAMINOPHEN 325 MG TAB PO PRN (22:22)
[2024-02-13 03:47] VITALS: BP 114/53; TEMP 97.5; O2SAT 95
[2024-02-13 05:28] LABS: BASO % 0.3 % (0.0-1.0); EOS # 0.3 10^3/uL (0.0-0.5); EOS % 3.4 % (0.0-3.0); HEMATOCRIT 31.4 % (36.0-47.0); HEMOGLOBIN 10.4 g/dl (12.0-15.5); LYMPH % 21.7 % (24.0-44.0); MEAN CORPUSCULAR HEMOGLOBIN 30.8 pg (27.0-33.0); MEAN CORPUSCULAR HGB CONC 33.1 g/dl (32.0-36.5); MEAN CORPUSCULAR VOLUME 92.9 fl (80.0-96.0); MONO # 0.9 10^3/uL (0.0-0.8); MONO % 9.9 % (2.0-8.0); NEUTROPHILS # 5.9 10^3/uL (1.5-8.5); NEUTROPHILS % 64.4 % (36.0-66.0); PLATELET COUNT, AUTOMATED 209 10^3/uL (150-450); RED BLOOD COUNT 3.38 10^6/uL (4.00-5.40); WHITE BLOOD COUNT 9.2 10^3/uL (4.0-10.0)
[2024-02-13 05:56] LABS: BLOOD UREA NITROGEN 14 MG/DL (9-23); CALCIUM LEVEL 9.4 MG/DL (8.3-10.6); CARBON DIOXIDE LEVEL 29 MMOL/L (20-31); CHLORIDE LEVEL 97 MMOL/L (98-107); CREATININE FOR GFR 0.84 MG/DL (0.55-1.30); GLOMERULAR FILTRATION RATE > 60.0 (>32); GLUCOSE, FASTING 95 MG/DL (74-106); MAGNESIUM LEVEL 1.9 MG/DL (1.8-2.4); POTASSIUM SERUM 4.3 MMOL/L (3.5-5.1); SODIUM LEVEL 130 MMOL/L (136-145)
[2024-02-13 08:23] VITALS: BP 121/64
[2024-02-13] MEDS ORDERED: CEFD300CAP PO (09:42)
[2024-02-13] MEDS ORDERED: BISA10SU27 PR (09:42)
[2024-02-13 11:52] VITALS: BP 110/51; TEMP 97.3; O2SAT 96
== END 2024-02-13 14:04 | DRG 699 ==
LOC: M ED 22:52 → EEVIPCON 02-10 05:10 → M ED INP 02-10 05:10 → M PCU 02-10 16:26 → M MSPAV 02-12 16:13
PROVIDERS: ADMIT Student in an Organized Health Care Education/Training Program; ATTEND Internal Medicine
DX: T83.511A Infection and inflammatory reaction due to indwelling urethral catheter, initial encounter (principal); E87.1 Hypo-osmolality and hyponatremia; K59.89 Other specified functional intestinal disorders; I48.0 Paroxysmal atrial fibrillation; E11.22 Type 2 diabetes mellitus with diabetic chronic kidney disease; B96.1 Klebsiella pneumoniae [K. pneumoniae] as the cause of diseases classified elsewhere; J45.909 Unspecified asthma, uncomplicated; N18.30 Chronic kidney disease, stage 3 unspecified; K21.9 Gastro-esophageal reflux disease without esophagitis; G47.33 Obstructive sleep apnea (adult) (pediatric); N31.9 Neuromuscular dysfunction of bladder, unspecified; D47.2 Monoclonal gammopathy; M10.9 Gout, unspecified; E83.42 Hypomagnesemia; G89.29 Other chronic pain; M19.90 Unspecified osteoarthritis, unspecified site; Z66 Do not resuscitate; Z86.14 Personal history of Methicillin resistant Staphylococcus aureus infection; Z86.16 Personal history of COVID-19; Z86.711 Personal history of pulmonary embolism; Z86.718 Personal history of other venous thrombosis and embolism; Z89.511 Acquired absence of right leg below knee; Z79.01 Long term (current) use of anticoagulants; Z98.41 Cataract extraction status, right eye; Z98.42 Cataract extraction status, left eye; Z90.49 Acquired absence of other specified parts of digestive tract; Z86.73 Personal history of transient ischemic attack (TIA), and cerebral infarction without residual deficits; Z79.899 Other long term (current) drug therapy; Z88.5 Allergy status to narcotic agent; Z88.8 Allergy status to other drugs, medicaments and biological substances; Z91.040 Latex allergy status; Z91.041 Radiographic dye allergy status; Y84.6 Urinary catheterization as the cause of abnormal reaction of the patient, or of later complication, without mention of misadventure at the time of the procedure

== ENCOUNTER 2024-02-26 13:28 | Emergency (ER) | payer BC, MEDICARE ==
[~2024-02-26] VITALS: Ht 165.1 cm; Wt 73.2 kg
[~2024-02-26 13:28] MED LIST changes: +ACID1TAB PO; +ALLO200T PO; -AZEL0.1S NARES; +AZEL137S8 NARES; +BACL5TAB2 PO; +CELE20TA PO; -LIDO1CRE2 TOP; +LIDO4CRE12 TOP; +LIDO5DIS41 TOP; +METO1TAB32 PO; +MOM30SS2 PO; +NITR50CA34 PO; +NYST1POW3 TOP; -NYST1POW9 TOP; +OXYB15TA14 PO; +[UNRECOGNIZED DRUG - CODE] PO
[2024-02-26 14:01] VITALS: TEMP 97.4
[2024-02-26 19:16] VITALS: BP 107/54; O2SAT 97
== END 2024-02-26 23:41 | disposition home or self-care (01) ==
LOC: M ED 13:28 → EDBD 13:28 → M ED 23:41
DX: T83.098A Other mechanical complication of other urinary catheter, initial encounter (principal); I10 Essential (primary) hypertension; Z88.5 Allergy status to narcotic agent; Z88.8 Allergy status to other drugs, medicaments and biological substances; Z91.040 Latex allergy status; Z91.041 Radiographic dye allergy status; Z79.1 Long term (current) use of non-steroidal anti-inflammatories (NSAID); Z79.01 Long term (current) use of anticoagulants; Z79.2 Long term (current) use of antibiotics; Z79.899 Other long term (current) drug therapy

== ENCOUNTER → 2024-03-25 | Outpatient (REF) | payer MEDICARE ==
[2024-03-25 20:15] LABS: BASO # 0.1 10^3/uL (0.0-0.2); BASO % 0.6 % (0.0-1.0); EOS # 0.2 10^3/uL (0.0-0.5); EOS % 2.2 % (0.0-3.0); HEMATOCRIT 39.1 % (36.0-47.0); HEMOGLOBIN 12.4 g/dl (12.0-15.5); LYMPH # 1.8 10^3/uL (1.5-5.0); LYMPH % 19.3 % (24.0-44.0); MEAN CORPUSCULAR HEMOGLOBIN 31.6 pg (27.0-33.0); MEAN CORPUSCULAR HGB CONC 31.7 g/dl (32.0-36.5); MEAN CORPUSCULAR VOLUME 99.7 fl (80.0-96.0); MONO # 0.6 10^3/uL (0.0-0.8); NEUTROPHILS # 6.8 10^3/uL (1.5-8.5); NEUTROPHILS % 71.6 % (36.0-66.0); PLATELET COUNT, AUTOMATED 261 10^3/uL (150-450); RED BLOOD COUNT 3.92 10^6/uL (4.00-5.40); WHITE BLOOD COUNT 9.5 10^3/uL (4.0-10.0)
== END ==
PROVIDERS: ATTEND Physician Assistant
DX: N32.89 Other specified disorders of bladder (principal)

== ENCOUNTER → 2024-04-02 | Outpatient (REF) | payer MEDICARE ==
[2024-04-02 10:27] LABS: BASO # 0.1 10^3/uL (0.0-0.2); BASO % 0.5 % (0.0-1.0); EOS # 0.3 10^3/uL (0.0-0.5); EOS % 2.7 % (0.0-3.0); HEMATOCRIT 35.7 % (36.0-47.0); HEMOGLOBIN 11.6 g/dl (12.0-15.5); LYMPH # 2.4 10^3/uL (1.5-5.0); LYMPH % 21.8 % (24.0-44.0); MEAN CORPUSCULAR HEMOGLOBIN 31.1 pg (27.0-33.0); MEAN CORPUSCULAR HGB CONC 32.5 g/dl (32.0-36.5); MEAN CORPUSCULAR VOLUME 95.7 fl (80.0-96.0); MONO % 8.7 % (2.0-8.0); NEUTROPHILS # 7.2 10^3/uL (1.5-8.5); NEUTROPHILS % 65.9 % (36.0-66.0); PLATELET COUNT, AUTOMATED 229 10^3/uL (150-450); RED BLOOD COUNT 3.73 10^6/uL (4.00-5.40); WHITE BLOOD COUNT 10.9 10^3/uL (4.0-10.0)
[2024-04-02 10:54] LABS: BLOOD UREA NITROGEN 21 MG/DL (9-23); CARBON DIOXIDE LEVEL 28 MMOL/L (20-31); CHLORIDE LEVEL 104 MMOL/L (98-107); CREATININE FOR GFR 0.89 MG/DL (0.55-1.30); GLOMERULAR FILTRATION RATE > 60.0 (>32); GLUCOSE, FASTING 84 MG/DL (74-106); POTASSIUM SERUM 4.4 MMOL/L (3.5-5.1); SODIUM LEVEL 138 MMOL/L (136-145)
== END ==
PROVIDERS: ATTEND Physician Assistant
DX: N39.0 Urinary tract infection, site not specified (principal)

== ENCOUNTER → 2024-04-08 | Outpatient (REF) | payer MEDICARE ==
[2024-04-08 10:30] LABS: HEMATOCRIT 37.3 % (36.0-47.0); MEAN CORPUSCULAR HEMOGLOBIN 31.5 pg (27.0-33.0); MEAN CORPUSCULAR HGB CONC 32.2 g/dl (32.0-36.5); MEAN CORPUSCULAR VOLUME 97.9 fl (80.0-96.0); PLATELET COUNT, AUTOMATED 249 10^3/uL (150-450); RED BLOOD COUNT 3.81 10^6/uL (4.00-5.40); WHITE BLOOD COUNT 10.3 10^3/uL (4.0-10.0)
[2024-04-08 10:57] LABS: CALCIUM LEVEL 10.1 MG/DL (8.3-10.6); CREATININE FOR GFR 1.23 MG/DL (0.55-1.30); GLOMERULAR FILTRATION RATE 44.6 (>32); POTASSIUM SERUM 4.4 MMOL/L (3.5-5.1)
== END ==
PROVIDERS: ATTEND Internal Medicine
DX: G45.9 Transient cerebral ischemic attack, unspecified (principal)

== ENCOUNTER → 2024-04-08 | Outpatient (REF) | payer MEDICARE | PROVIDERS: ATTEND Internal Medicine | DX: R14.0 Abdominal distension (gaseous) (principal) ==

== ENCOUNTER 2024-04-09 12:47 | Emergency (ER) | payer MEDICARE, MEDICAID ==
[~2024-04-09] VITALS: Ht 165.1 cm; Wt 77.9 kg
[2024-04-09 14:15] LABS: BASO # 0.1 10^3/uL (0.0-0.2); BASO % 0.6 % (0.0-1.0); EOS # 0.3 10^3/uL (0.0-0.5); EOS % 2.8 % (0.0-3.0); HEMATOCRIT 36.7 % (36.0-47.0); HEMOGLOBIN 11.9 g/dl (12.0-15.5); LYMPH # 2.5 10^3/uL (1.5-5.0); LYMPH % 24.3 % (24.0-44.0); MEAN CORPUSCULAR HEMOGLOBIN 30.9 pg (27.0-33.0); MEAN CORPUSCULAR HGB CONC 32.4 g/dl (32.0-36.5); MEAN CORPUSCULAR VOLUME 95.3 fl (80.0-96.0); MONO # 0.8 10^3/uL (0.0-0.8); MONO % 7.7 % (2.0-8.0); NEUTROPHILS # 6.5 10^3/uL (1.5-8.5); NEUTROPHILS % 64.3 % (36.0-66.0); PLATELET COUNT, AUTOMATED 247 10^3/uL (150-450); RED BLOOD COUNT 3.85 10^6/uL (4.00-5.40); WHITE BLOOD COUNT 10.1 10^3/uL (4.0-10.0)
[2024-04-09 14:28] LABS: INR 1.28; PARTIAL THROMBOPLASTIN TIME 39.2 SECONDS (24.8-34.2); PROTHROMBIN TIME 16.3 SECONDS (12.5-14.5)
[2024-04-09] MEDS: METOCLOPRAMIDE INJ 10MG/2ML VIAL IV ONE (14:38)
[2024-04-09 14:43] LABS: LIPASE 24 U/L (12-53)
[2024-04-09 14:45] LABS: ALBUMIN 3.1 G/DL (3.2-5.2); ALKALINE PHOSPHATASE 169 U/L (35-104); ALT/SGPT 19 U/L (7.0-40); AST/SGOT 21 U/L (<34); BILIRUBIN,DIRECT < 0.1 MG/DL (<0.4); BILIRUBIN,TOTAL 0.2 MG/DL (0.3-1.2); BLOOD UREA NITROGEN 23 MG/DL (9-23); CALCIUM LEVEL 10.1 MG/DL (8.3-10.6); CARBON DIOXIDE LEVEL 30 MMOL/L (20-31); CHLORIDE LEVEL 100 MMOL/L (98-107); CREATININE FOR GFR 1.32 MG/DL (0.55-1.30); GLOMERULAR FILTRATION RATE 41.1 (>32); GLUCOSE, FASTING 91 MG/DL (74-106); POTASSIUM SERUM 4.9 MMOL/L (3.5-5.1); SODIUM LEVEL 134 MMOL/L (136-145); TOTAL PROTEIN 6.5 G/DL (5.7-8.2)
[2024-04-09] MEDS: METHYLNALTREXONE BROMIDE 12MG/0.6ML VIAL (RELISTOR) SC ONE (15:42)
[2024-04-09 17:00] VITALS: BP 106/54; TEMP 97.5; O2SAT 94
== END 2024-04-09 17:15 | disposition home or self-care (01) ==
LOC: M ED 12:47
DX: K59.00 Constipation, unspecified (principal); I48.91 Unspecified atrial fibrillation; K21.9 Gastro-esophageal reflux disease without esophagitis; E78.5 Hyperlipidemia, unspecified; I10 Essential (primary) hypertension; Z88.5 Allergy status to narcotic agent; Z88.8 Allergy status to other drugs, medicaments and biological substances; Z91.040 Latex allergy status; Z91.041 Radiographic dye allergy status; Z79.1 Long term (current) use of non-steroidal anti-inflammatories (NSAID); Z79.01 Long term (current) use of anticoagulants; Z79.2 Long term (current) use of antibiotics; Z79.899 Other long term (current) drug therapy
CPT/HCPCS: 74176; 80053; 82248; 83690; 85025; 85610; 85730; 87507; 96372; 96374; 99284; J2212; J2765

== ENCOUNTER → 2024-04-10 | Outpatient (REF) | payer MEDICARE ==
[2024-04-10 09:52] LABS: HEMATOCRIT 36.4 % (36.0-47.0); HEMOGLOBIN 11.6 g/dl (12.0-15.5); MEAN CORPUSCULAR HEMOGLOBIN 30.9 pg (27.0-33.0); MEAN CORPUSCULAR HGB CONC 31.9 g/dl (32.0-36.5); MEAN CORPUSCULAR VOLUME 96.8 fl (80.0-96.0); PLATELET COUNT, AUTOMATED 253 10^3/uL (150-450); RED BLOOD COUNT 3.76 10^6/uL (4.00-5.40); WHITE BLOOD COUNT 7.9 10^3/uL (4.0-10.0)
[2024-04-10 10:10] LABS: CALCIUM LEVEL 9.9 MG/DL (8.3-10.6); CREATININE FOR GFR 1.21 MG/DL (0.55-1.30); GLOMERULAR FILTRATION RATE 45.5 (>32); POTASSIUM SERUM 4.4 MMOL/L (3.5-5.1)
== END ==
PROVIDERS: ATTEND Physician Assistant
DX: N39.0 Urinary tract infection, site not specified (principal)

== ENCOUNTER → 2024-04-19 | Outpatient (REF) | payer MEDICARE | PROVIDERS: ATTEND Physician Assistant | DX: R05.9 Cough, unspecified (principal) ==

== ENCOUNTER → 2024-04-19 | Outpatient (REF) | payer MEDICARE | PROVIDERS: ATTEND Physician Assistant | DX: R10.9 Unspecified abdominal pain (principal); R14.0 Abdominal distension (gaseous); K59.00 Constipation, unspecified ==

== ENCOUNTER 2024-04-25 13:29 | Inpatient (IN) | payer MEDICARE ==
[~2024-04-25] VITALS: Ht 165.1 cm; Wt 73.4 kg
[2024-04-25] MEDS: NS 500 ML IV ONE ×2 (14:05→16:49)
[2024-04-25] MEDS ORDERED: ISOVUE-370 76% 100ML VIAL As Ordered ONE (14:06)
[2024-04-25 14:13] LABS: BASO % 0.2 % (0.0-1.0); EOS % 0.2 % (0.0-3.0); HEMATOCRIT 36.1 % (36.0-47.0); HEMOGLOBIN 11.9 g/dl (12.0-15.5); LYMPH % 5.6 % (24.0-44.0); MEAN CORPUSCULAR HEMOGLOBIN 31.3 pg (27.0-33.0); MONO # 1.3 10^3/uL (0.0-0.8); NEUTROPHILS # 15.8 10^3/uL (1.5-8.5); NEUTROPHILS % 86.6 % (36.0-66.0); PLATELET COUNT, AUTOMATED 231 10^3/uL (150-450); WHITE BLOOD COUNT 18.3 10^3/uL (4.0-10.0)
[2024-04-25 14:47] LABS: CK-MB VALUE MASS 1.3 NG/ML (<3.6); LIPASE 21 U/L (12-53)
[2024-04-25 14:48] LABS: CPK CREATINE PHOSPHOKINASE 47 U/L (34-145); MB/CK RELATIVE INDEX 2.76 (< OR =4)
[2024-04-25 14:49] LABS: ALBUMIN 3.2 G/DL (3.2-5.2); ALKALINE PHOSPHATASE 148 U/L (35-104); ALT/SGPT < 9 U/L (7.0-40); AST/SGOT 13 U/L (<34); BILIRUBIN,DIRECT 0.3 MG/DL (<0.4); BILIRUBIN,TOTAL 0.6 MG/DL (0.3-1.2); BLOOD UREA NITROGEN 33 MG/DL (9-23); CARBON DIOXIDE LEVEL 26 MMOL/L (20-31); CHLORIDE LEVEL 104 MMOL/L (98-107); CREATININE FOR GFR 1.12 MG/DL (0.55-1.30); GLOMERULAR FILTRATION RATE 49.7 (>32); GLUCOSE, FASTING 109 MG/DL (74-106); SODIUM LEVEL 138 MMOL/L (136-145); TOTAL PROTEIN 6.2 G/DL (5.7-8.2)
[2024-04-25 15:33] LABS: KETONE, URINE MANUAL REFLEX 1+ mg/dL (NEGATIVE); NITRITE, URINE MANUAL RFX NEGATIVE (NEGATIVE); PROTEIN, URINE MANUAL REFLEX 1+ mg/dL (NEGATIVE)
[2024-04-25 15:35] LABS: HYALINE CAST, URINE RFX NONE SEEN /lpf (0-1); SQUAMOUS EPITHELIAL URINE RFX SMALL AMOUNT /hpf (SMALL AMT)
[2024-04-25 15:36] LABS: MICROSCOPIC EXAM RFX PERFORMED
[2024-04-25 15:38] LABS: CK-MB VALUE MASS < 1.0 NG/ML (<3.6)
[2024-04-25 15:39] LABS: CPK CREATINE PHOSPHOKINASE 41 U/L (34-145); MB/CK RELATIVE INDEX 2.43 (< OR =4)
[2024-04-25] MEDS ORDERED: CARB25TA9 PO (16:33)
[2024-04-25] MEDS ORDERED: ACET-897 PO (16:33)
[2024-04-25] MEDS ORDERED: VENTAER INH (16:33)
[2024-04-25] MEDS ORDERED: OXYB10TA23 PO (16:33)
[2024-04-25] MEDS ORDERED: METH-855 PO (16:33)
[2024-04-25] MEDS ORDERED: HOME MED LIST COMPLETE! XX SCH (16:40)
[2024-04-25] MEDS: NEOSTIGMINE METHYLSULFATE INJ 2 MG in NS 50 ML IV ONE (17:33)
[2024-04-25] MEDS: NS (Normal Saline) 0.9% 1,000 ML IV SCH (17:34)
[2024-04-25 17:55] LABS: C REACTIVE PROTEIN QUANTITATIV 4.18 MG/DL (<1.0)
[2024-04-25 18:03] LABS: PROCALCITONIN 0.15 ng/ml
[2024-04-25] MEDS ORDERED: ONDANSETRON 4MG 2ML VIAL IV PRN (18:15)
[2024-04-25] MEDS: NS (Normal Saline) 0.9% 1,000 ML IV ONE (19:55)
[2024-04-25] MEDS: SENOKOT S TAB PO SCH (21:00)
[2024-04-25] MEDS: PIPERACILLIN/TAZOBACTAM SOD 3.375 GM in DEXTROSE 5% (D5W) ADV/MINI-BAG 50 ML IV SCH (21:03)
[2024-04-25] MEDS: BISACODYL 10MG SUPP PR SCH (21:09)
[2024-04-25] MEDS: ENOXAPARIN 80MG/0.8ML SYRINGE (J1650 PER 10MG) SC SCH (22:03)
[2024-04-25] MEDS: ATORVASTATIN 20 MG TAB PO SCH (22:05)
[2024-04-25] MEDS: busPIRone 10 MG TAB PO SCH (22:05)
[2024-04-25] MEDS: SINEMET 25-100 MG TAB PO SCH (22:05)
[2024-04-25] MEDS: CitaloPRAM (CeleXA) 20 MG TAB PO SCH (22:05)
[2024-04-25 23:51] VITALS: BP 104/51; TEMP 97; O2SAT 98
[2024-04-26] MEDS: MORPHINE 2 MG/ML 1ML VIAL IV PRN (00:37)
[2024-04-26 03:44] VITALS: BP 96/55; TEMP 97.8; O2SAT 97
[2024-04-26 06:30] LABS: HEMATOCRIT 31.3 % (36.0-47.0); MEAN CORPUSCULAR HEMOGLOBIN 31.1 pg (27.0-33.0); MEAN CORPUSCULAR HGB CONC 31.9 g/dl (32.0-36.5); MEAN CORPUSCULAR VOLUME 97.2 fl (80.0-96.0); PLATELET COUNT, AUTOMATED 215 10^3/uL (150-450); RED BLOOD COUNT 3.22 10^6/uL (4.00-5.40); WHITE BLOOD COUNT 13.1 10^3/uL (4.0-10.0)
[2024-04-26 07:00] LABS: CALCIUM LEVEL 8.4 MG/DL (8.3-10.6); CREATININE FOR GFR 1.01 MG/DL (0.55-1.30); POTASSIUM SERUM 3.8 MMOL/L (3.5-5.1)
[2024-04-26 07:44] VITALS: BP 98/54; TEMP 96.9; O2SAT 95
[2024-04-26] MEDS: MIRALAX *UNIT DOSE* 17GM PACKET PO SCH (08:06)
[2024-04-26] MEDS: ASPIRIN 81MG ENTERIC TABLET PO SCH (08:06)
[2024-04-26] MEDS: ACETAMINOPHEN 325 MG TAB PO PRN (09:29)
[2024-04-26 12:13] VITALS: BP 97/54; TEMP 96.3; O2SAT 98
[2024-04-26 16:12] VITALS: BP 111/52; TEMP 97.2; O2SAT 98
[2024-04-26 19:57] VITALS: BP 111/53; TEMP 97.3; O2SAT 98
[2024-04-26 23:37] VITALS: BP 98/55; TEMP 97.3; O2SAT 98
[2024-04-27 03:27] VITALS: BP 112/54; TEMP 97.2; O2SAT 98
[2024-04-27 07:39] VITALS: BP 129/60; TEMP 98.9; O2SAT 68
[2024-04-27 08:00] VITALS: TEMP 98
[2024-04-27 09:21] LABS: BASO % 0.3 % (0.0-1.0); EOS # 0.1 10^3/uL (0.0-0.5); HEMATOCRIT 30.8 % (36.0-47.0); HEMOGLOBIN 9.9 g/dl (12.0-15.5); LYMPH # 1.1 10^3/uL (1.5-5.0); MEAN CORPUSCULAR HEMOGLOBIN 31.2 pg (27.0-33.0); MEAN CORPUSCULAR HGB CONC 32.1 g/dl (32.0-36.5); MEAN CORPUSCULAR VOLUME 97.2 fl (80.0-96.0); MONO # 0.6 10^3/uL (0.0-0.8); MONO % 5.2 % (2.0-8.0); NEUTROPHILS # 8.7 10^3/uL (1.5-8.5); NEUTROPHILS % 82.7 % (36.0-66.0); PLATELET COUNT, AUTOMATED 207 10^3/uL (150-450); RED BLOOD COUNT 3.17 10^6/uL (4.00-5.40); WHITE BLOOD COUNT 10.5 10^3/uL (4.0-10.0)
[2024-04-27 09:44] LABS: BLOOD UREA NITROGEN 15 MG/DL (9-23); CALCIUM LEVEL 8.1 MG/DL (8.3-10.6); CARBON DIOXIDE LEVEL 20 MMOL/L (20-31); CHLORIDE LEVEL 113 MMOL/L (98-107); GLOMERULAR FILTRATION RATE > 60.0 (>32); GLUCOSE, FASTING 97 MG/DL (74-106); POTASSIUM SERUM 3.1 MMOL/L (3.5-5.1); SODIUM LEVEL 144 MMOL/L (136-145)
[2024-04-27 12:00] VITALS: BP 114/70; TEMP 98; O2SAT 70
[2024-04-27 16:00] VITALS: BP 115/67
[2024-04-27] MEDS: POLYVINYL ALCOHOL OPHTH SOLN 15ML (LIQUITEARS) OU PRN (19:22)
[2024-04-27 20:14] VITALS: BP 136/65; TEMP 98; O2SAT 96
[2024-04-27] MEDS: APIXABAN 5 MG TAB (ELIQUIS) PO SCH (21:23)
[2024-04-28 01:55] VITALS: BP 124/60; O2SAT 97
[2024-04-28] MEDS: ACETAMINOPHEN *IV* 1,000 MG in IV 1 EA IV ONE (03:03)
[2024-04-28 04:37] VITALS: BP 137/65; TEMP 97.7; O2SAT 95
[2024-04-28 07:05] LABS: BASO # 0.1 10^3/uL (0.0-0.2); BASO % 0.4 % (0.0-1.0); EOS % 0.3 % (0.0-3.0); HEMATOCRIT 31.1 % (36.0-47.0); HEMOGLOBIN 10.3 g/dl (12.0-15.5); LYMPH # 1.2 10^3/uL (1.5-5.0); LYMPH % 7.5 % (24.0-44.0); MEAN CORPUSCULAR HEMOGLOBIN 31.2 pg (27.0-33.0); MEAN CORPUSCULAR HGB CONC 33.1 g/dl (32.0-36.5); MEAN CORPUSCULAR VOLUME 94.2 fl (80.0-96.0); MONO % 6.4 % (2.0-8.0); NEUTROPHILS # 13.2 10^3/uL (1.5-8.5); NEUTROPHILS % 84.4 % (36.0-66.0); PLATELET COUNT, AUTOMATED 222 10^3/uL (150-450); WHITE BLOOD COUNT 15.7 10^3/uL (4.0-10.0)
[2024-04-28 07:35] LABS: BLOOD UREA NITROGEN 9 MG/DL (9-23); CALCIUM LEVEL 9.1 MG/DL (8.3-10.6); CARBON DIOXIDE LEVEL 21 MMOL/L (20-31); CHLORIDE LEVEL 109 MMOL/L (98-107); CREATININE FOR GFR 0.71 MG/DL (0.55-1.30); GLOMERULAR FILTRATION RATE > 60.0 (>32); GLUCOSE, FASTING 115 MG/DL (74-106); POTASSIUM SERUM 2.9 MMOL/L (3.5-5.1); SODIUM LEVEL 142 MMOL/L (136-145)
[2024-04-28 07:47] VITALS: BP 141/64; TEMP 96.9; O2SAT 96
[2024-04-28] MEDS: POTASSIUM CHLORIDE 10MEQ SR TABLET PO ONE ×2 (08:36→16:13)
[2024-04-28] MEDS: KCL 10MEQ/100ML SWI (KRUN) 10 MEQ in IV 1 EA IV SCH (09:18)
[2024-04-28 10:14] LABS: C REACTIVE PROTEIN QUANTITATIV 3.36 MG/DL (<1.0)
[2024-04-28 10:22] LABS: PROCALCITONIN 0.08 ng/ml
[2024-04-28] MEDS: GABAPENTIN 300 MG CAP PO SCH (12:12)
[2024-04-28] MEDS: METOPROLOL SUCC *XL* 25MG TAB (TopROL *XL*) PO SCH (12:13)
[2024-04-28 13:41] VITALS: BP 140/64; O2SAT 95
[2024-04-28 14:02] VITALS: BP 129/61; TEMP 97.2; O2SAT 96
[2024-04-28 20:00] VITALS: BP 129/67; TEMP 97.5; O2SAT 96
[2024-04-28] MEDS: AUGMENTIN 875 MG TAB PO SCH (20:15)
[2024-04-28] MEDS: traZODone 50 MG TAB PO SCH (20:17)
[2024-04-29 04:00] VITALS: BP 126/67; TEMP 97.3; O2SAT 94
[2024-04-29 05:22] LABS: BASO % 0.3 % (0.0-1.0); EOS # 0.3 10^3/uL (0.0-0.5); EOS % 2.7 % (0.0-3.0); HEMATOCRIT 31.8 % (36.0-47.0); HEMOGLOBIN 10.4 g/dl (12.0-15.5); LYMPH # 1.8 10^3/uL (1.5-5.0); LYMPH % 14.8 % (24.0-44.0); MEAN CORPUSCULAR HGB CONC 32.7 g/dl (32.0-36.5); MEAN CORPUSCULAR VOLUME 94.6 fl (80.0-96.0); MONO % 8.4 % (2.0-8.0); NEUTROPHILS # 8.8 10^3/uL (1.5-8.5); NEUTROPHILS % 73.1 % (36.0-66.0); PLATELET COUNT, AUTOMATED 232 10^3/uL (150-450); RED BLOOD COUNT 3.36 10^6/uL (4.00-5.40)
[2024-04-29 05:50] LABS: BLOOD UREA NITROGEN 6 MG/DL (9-23); CALCIUM LEVEL 9.3 MG/DL (8.3-10.6); CARBON DIOXIDE LEVEL 22 MMOL/L (20-31); CHLORIDE LEVEL 112 MMOL/L (98-107); GLOMERULAR FILTRATION RATE > 60.0 (>32); GLUCOSE, FASTING 89 MG/DL (74-106); POTASSIUM SERUM 3.5 MMOL/L (3.5-5.1); SODIUM LEVEL 143 MMOL/L (136-145)
[2024-04-29] MEDS: POTASSIUM CHLORIDE 10MEQ SR TABLET PO ONE (08:29)
[2024-04-29 08:30] VITALS: BP 130/65
[2024-04-29] MEDS ORDERED: AMOX875T2 PO (09:59)
[2024-04-29] MEDS ORDERED: SENN-52 PO (09:59)
[2024-04-29] MEDS ORDERED: BISA10SU27 PR (09:59)
[2024-04-29] MEDS ORDERED: HYPR15DR3 OP (11:44)
[2024-04-29 12:00] VITALS: BP 116/59; TEMP 97.3; O2SAT 96
== END 2024-04-29 15:28 | DRG 392 ==
LOC: M ED 13:29 → EDBD 13:29 → M ED INP 17:01 → M PCU 23:51 → M MSPAV 04-28 13:48
PROVIDERS: ADMIT Internal Medicine; ATTEND Internal Medicine
DX: K59.81 Ogilvie syndrome (principal); N39.0 Urinary tract infection, site not specified; Z66 Do not resuscitate; I48.91 Unspecified atrial fibrillation; J45.909 Unspecified asthma, uncomplicated; G47.33 Obstructive sleep apnea (adult) (pediatric); N18.30 Chronic kidney disease, stage 3 unspecified; N31.9 Neuromuscular dysfunction of bladder, unspecified; D47.2 Monoclonal gammopathy; M10.9 Gout, unspecified; M19.90 Unspecified osteoarthritis, unspecified site; G89.4 Chronic pain syndrome; G20.A1 Parkinson's disease without dyskinesia, without mention of fluctuations; F32.A Depression, unspecified; I12.9 Hypertensive chronic kidney disease with stage 1 through stage 4 chronic kidney disease, or unspecified chronic kidney disease; K21.9 Gastro-esophageal reflux disease without esophagitis; E11.22 Type 2 diabetes mellitus with diabetic chronic kidney disease; Z89.511 Acquired absence of right leg below knee; Z98.41 Cataract extraction status, right eye; Z98.42 Cataract extraction status, left eye; Z90.49 Acquired absence of other specified parts of digestive tract; Z90.79 Acquired absence of other genital organ(s); Z79.82 Long term (current) use of aspirin; Z79.01 Long term (current) use of anticoagulants; Z86.711 Personal history of pulmonary embolism; Z86.718 Personal history of other venous thrombosis and embolism; Z86.73 Personal history of transient ischemic attack (TIA), and cerebral infarction without residual deficits; Z79.891 Long term (current) use of opiate analgesic; Z79.899 Other long term (current) drug therapy; Z88.5 Allergy status to narcotic agent; Z88.8 Allergy status to other drugs, medicaments and biological substances; Z91.040 Latex allergy status; Z99.3 Dependence on wheelchair; E87.6 Hypokalemia

== ENCOUNTER → 2024-05-01 | Outpatient (REF) | payer MEDICARE ==
[~2024-05-01] MED LIST changes: +ACET-897 PO; +CARB25TA9 PO; +HYPR15DR3 OP; +METH-855 PO
[2024-05-01 10:30] LABS: HEMOGLOBIN 10.7 g/dl (12.0-15.5); MEAN CORPUSCULAR HGB CONC 32.4 g/dl (32.0-36.5); MEAN CORPUSCULAR VOLUME 95.7 fl (80.0-96.0); PLATELET COUNT, AUTOMATED 238 10^3/uL (150-450); RED BLOOD COUNT 3.45 10^6/uL (4.00-5.40); WHITE BLOOD COUNT 11.5 10^3/uL (4.0-10.0)
[2024-05-01 10:59] LABS: PERCENT SATURATION 13.9 % (13.2-45.0)
[2024-05-01 11:01] LABS: ALBUMIN 2.5 G/DL (3.2-5.2); ALKALINE PHOSPHATASE 108 U/L (35-104); ALT/SGPT 25 U/L (7.0-40); AST/SGOT 20 U/L (<34); BILIRUBIN,TOTAL 0.4 MG/DL (0.3-1.2); BLOOD UREA NITROGEN 8 MG/DL (9-23); CALCIUM LEVEL 8.8 MG/DL (8.3-10.6); CARBON DIOXIDE LEVEL 25 MMOL/L (20-31); CHLORIDE LEVEL 110 MMOL/L (98-107); CHOLESTEROL LEVEL 84 MG/DL (<200); CHOLESTEROL RISK RATIO 5.87 (<5); CREATININE FOR GFR 0.69 MG/DL (0.55-1.30); GLOMERULAR FILTRATION RATE > 60.0 (>32); GLUCOSE, FASTING 119 MG/DL (74-106); HDL CHOLESTEROL 14.3 MG/DL (>40); LDL CHOLESTEROL 40.1 MG/DL (<100); NON-HDL-C 69.7 MG/DL; POTASSIUM SERUM 3.2 MMOL/L (3.5-5.1); SODIUM LEVEL 143 MMOL/L (136-145); TOTAL PROTEIN 5.3 G/DL (5.7-8.2); TRIGLYCERIDES LEVEL 148 MG/DL (<150)
[2024-05-01 11:03] LABS: FERRITIN 119.2 NG/ML (7.3-270.7)
[2024-05-01 11:04] LABS: FREE T3 2.3 PG/ML (2.3-4.2); THYROXINE (T4) 9.2 UG/DL (4.5-10.9)
[2024-05-01 11:05] LABS: VITAMIN B12 LEVEL 1565 PG/ML (211-911)
[2024-05-01 11:06] LABS: TOTAL 25(OH) VITAMIN D > 150.0 NG/ML (20.0-100.0)
== END ==
PROVIDERS: ATTEND Physician Assistant
DX: D64.9 Anemia, unspecified (principal); Z79.899 Other long term (current) drug therapy

== ENCOUNTER → 2024-05-08 | Outpatient (REF) | payer MEDICARE ==
[2024-05-08 13:34] LABS: HEMATOCRIT 36.3 % (36.0-47.0); HEMOGLOBIN 11.7 g/dl (12.0-15.5); MEAN CORPUSCULAR HEMOGLOBIN 31.3 pg (27.0-33.0); MEAN CORPUSCULAR HGB CONC 32.2 g/dl (32.0-36.5); MEAN CORPUSCULAR VOLUME 97.1 fl (80.0-96.0); PLATELET COUNT, AUTOMATED 364 10^3/uL (150-450); RED BLOOD COUNT 3.74 10^6/uL (4.00-5.40); WHITE BLOOD COUNT 12.9 10^3/uL (4.0-10.0)
[2024-05-08 14:05] LABS: BLOOD UREA NITROGEN 14 MG/DL (9-23); CALCIUM LEVEL 8.7 MG/DL (8.3-10.6); CARBON DIOXIDE LEVEL 30 MMOL/L (20-31); CHLORIDE LEVEL 105 MMOL/L (98-107); CREATININE FOR GFR 0.71 MG/DL (0.55-1.30); GLOMERULAR FILTRATION RATE > 60.0 (>32); GLUCOSE, FASTING 84 MG/DL (74-106); POTASSIUM SERUM 3.7 MMOL/L (3.5-5.1); SODIUM LEVEL 142 MMOL/L (136-145)
== END ==
PROVIDERS: ATTEND Physician Assistant
DX: Z79.899 Other long term (current) drug therapy (principal)

== ENCOUNTER → 2024-05-09 | Outpatient (REF) | payer MEDICARE ==
[2024-05-09 16:05] LABS: BASO # 0.1 10^3/uL (0.0-0.2); BASO % 0.5 % (0.0-1.0); EOS # 0.2 10^3/uL (0.0-0.5); EOS % 2.2 % (0.0-3.0); HEMATOCRIT 32.5 % (36.0-47.0); HEMOGLOBIN 10.3 g/dl (12.0-15.5); LYMPH # 1.5 10^3/uL (1.5-5.0); LYMPH % 14.8 % (24.0-44.0); MEAN CORPUSCULAR HEMOGLOBIN 30.7 pg (27.0-33.0); MEAN CORPUSCULAR HGB CONC 31.7 g/dl (32.0-36.5); MONO # 0.6 10^3/uL (0.0-0.8); MONO % 6.1 % (2.0-8.0); NEUTROPHILS # 7.9 10^3/uL (1.5-8.5); PLATELET COUNT, AUTOMATED 314 10^3/uL (150-450); RED BLOOD COUNT 3.35 10^6/uL (4.00-5.40); WHITE BLOOD COUNT 10.4 10^3/uL (4.0-10.0)
[2024-05-09 16:22] LABS: BLOOD UREA NITROGEN 13 MG/DL (9-23); CALCIUM LEVEL 8.5 MG/DL (8.3-10.6); CARBON DIOXIDE LEVEL 27 MMOL/L (20-31); CHLORIDE LEVEL 106 MMOL/L (98-107); GLOMERULAR FILTRATION RATE > 60.0 (>32); GLUCOSE, FASTING 91 MG/DL (74-106); POTASSIUM SERUM 3.8 MMOL/L (3.5-5.1); SODIUM LEVEL 143 MMOL/L (136-145)
== END ==
PROVIDERS: ATTEND Physician Assistant
DX: D72.829 Elevated white blood cell count, unspecified (principal)

== ENCOUNTER → 2024-05-15 | Outpatient (REF) | payer MEDICARE ==
[2024-05-15 15:46] LABS: HEMATOCRIT 36.5 % (36.0-47.0); HEMOGLOBIN 11.6 g/dl (12.0-15.5); MEAN CORPUSCULAR HEMOGLOBIN 31.4 pg (27.0-33.0); MEAN CORPUSCULAR HGB CONC 31.8 g/dl (32.0-36.5); MEAN CORPUSCULAR VOLUME 98.6 fl (80.0-96.0); PLATELET COUNT, AUTOMATED 336 10^3/uL (150-450); WHITE BLOOD COUNT 10.4 10^3/uL (4.0-10.0)
[2024-05-15 16:08] LABS: BLOOD UREA NITROGEN 12 MG/DL (9-23); CALCIUM LEVEL 8.9 MG/DL (8.3-10.6); CARBON DIOXIDE LEVEL 32 MMOL/L (20-31); CHLORIDE LEVEL 106 MMOL/L (98-107); CREATININE FOR GFR 0.74 MG/DL (0.55-1.30); GLOMERULAR FILTRATION RATE > 60.0 (>32); GLUCOSE, FASTING 103 MG/DL (74-106); POTASSIUM SERUM 4.6 MMOL/L (3.5-5.1); SODIUM LEVEL 141 MMOL/L (136-145)
== END ==
PROVIDERS: ATTEND Physician Assistant
DX: D72.829 Elevated white blood cell count, unspecified (principal)

== ENCOUNTER → 2024-06-12 | Outpatient (REF) | payer MEDICARE ==
[2024-06-12 09:30] LABS: HEMATOCRIT 35.2 % (36.0-47.0); MEAN CORPUSCULAR HEMOGLOBIN 30.3 pg (27.0-33.0); MEAN CORPUSCULAR HGB CONC 31.3 g/dl (32.0-36.5); PLATELET COUNT, AUTOMATED 264 10^3/uL (150-450); RED BLOOD COUNT 3.63 10^6/uL (4.00-5.40); WHITE BLOOD COUNT 7.7 10^3/uL (4.0-10.0)
[2024-06-12 09:56] LABS: BLOOD UREA NITROGEN 13 MG/DL (9-23); CALCIUM LEVEL 9.4 MG/DL (8.3-10.6); CARBON DIOXIDE LEVEL 30 MMOL/L (20-31); CHLORIDE LEVEL 102 MMOL/L (98-107); CREATININE FOR GFR 0.79 MG/DL (0.55-1.30); GLOMERULAR FILTRATION RATE > 60.0 (>32); GLUCOSE, FASTING 83 MG/DL (74-106); POTASSIUM SERUM 4.3 MMOL/L (3.5-5.1); SODIUM LEVEL 139 MMOL/L (136-145)
== END ==
PROVIDERS: ATTEND Internal Medicine
DX: I10 Essential (primary) hypertension (principal)

== ENCOUNTER → 2024-07-08 | Outpatient (REF) | payer MEDICARE ==
[2024-07-08 08:57] LABS: HEMATOCRIT 34.7 % (36.0-47.0); MEAN CORPUSCULAR HEMOGLOBIN 31.1 pg (27.0-33.0); MEAN CORPUSCULAR HGB CONC 31.7 g/dl (32.0-36.5); PLATELET COUNT, AUTOMATED 229 10^3/uL (150-450); RED BLOOD COUNT 3.54 10^6/uL (4.00-5.40); WHITE BLOOD COUNT 8.1 10^3/uL (4.0-10.0)
[2024-07-08 09:26] LABS: BLOOD UREA NITROGEN 15 MG/DL (9-23); CALCIUM LEVEL 9.1 MG/DL (8.3-10.6); CARBON DIOXIDE LEVEL 26 MMOL/L (20-31); CHLORIDE LEVEL 107 MMOL/L (98-107); CREATININE FOR GFR 0.78 MG/DL (0.55-1.30); GLOMERULAR FILTRATION RATE > 60.0 (>32); GLUCOSE, FASTING 84 MG/DL (74-106); POTASSIUM SERUM 4.4 MMOL/L (3.5-5.1); SODIUM LEVEL 141 MMOL/L (136-145)
== END ==
PROVIDERS: ATTEND Internal Medicine
DX: Z79.899 Other long term (current) drug therapy (principal)

== ENCOUNTER → 2024-08-13 | Outpatient (CLI) | payer MEDICARE, MEDICAID | LOC: M RAD 11:06 | PROVIDERS: ATTEND Physician Assistant | DX: N93.9 Abnormal uterine and vaginal bleeding, unspecified (principal) ==

== ENCOUNTER → 2024-08-20 | Outpatient (REF) | payer MEDICARE, MEDICAID | LOC: EEVIPCON 14:22 | PROVIDERS: ATTEND Physician Assistant | DX: N39.0 Urinary tract infection, site not specified (principal) ==

== ENCOUNTER → 2024-10-24 | Outpatient (REF) | payer MEDICARE, MEDICAID ==
[~2024-10-24] MED LIST changes: +LIDO1ADH93 TOP; -LIDO5DIS41 TOP
[2024-10-24 14:12] LABS: BASO # 0.0 10^3/uL (0.0-0.2); BASO % 0.4 % (0.0-1.0); EOS # 0.2 10^3/uL (0.0-0.5); EOS % 2.6 % (0.0-3.0); LYMPH # 1.9 10^3/uL (1.5-5.0); LYMPH % 21.5 % (24.0-44.0); MONO # 0.9 10^3/uL (0.0-0.8); MONO % 9.6 % (2.0-8.0); NEUTROPHILS # 5.9 10^3/uL (1.5-8.5); NEUTROPHILS % 65.6 % (36.0-66.0); PLATELET COUNT, AUTOMATED 252 10^3/uL (150-450)
[2024-10-24 14:41] LABS: CALCIUM LEVEL 9.4 MG/DL (8.3-10.6); CARBON DIOXIDE LEVEL 30.0 MMOL/L (20-31); CHLORIDE LEVEL 96.0 MMOL/L (98-107); CREATININE FOR GFR 0.84 MG/DL (0.55-1.30); GLOMERULAR FILTRATION RATE 69.3 (>32); POTASSIUM SERUM 4.6 MMOL/L (3.5-5.1); SODIUM LEVEL 136.0 MMOL/L (136-145)
== END ==
PROVIDERS: ATTEND Physician Assistant
DX: N18.9 Chronic kidney disease, unspecified (principal)

== ENCOUNTER → 2024-11-11 | Outpatient (REF) | payer MEDICARE ==
[2024-11-11 10:47] LABS: THYROXINE (T4) 9.7 UG/DL (4.5-10.9)
[2024-11-11 10:48] LABS: TOTAL 25(OH) VITAMIN D 87.2 NG/ML (20.0-100.0)
[2024-11-11 10:50] LABS: VITAMIN B12 LEVEL 416 PG/ML (211-911)
[2024-11-11 10:52] LABS: ALT/SGPT < 9 U/L (7.0-40); AST/SGOT 17 U/L (<34); CALCIUM LEVEL 9.1 MG/DL (8.3-10.6); CARBON DIOXIDE LEVEL 27 MMOL/L (20-31); CHLORIDE LEVEL 98 MMOL/L (98-107); CHOLESTEROL LEVEL 104 MG/DL (<200); CHOLESTEROL RISK RATIO 3.62 (<5); CREATININE FOR GFR 0.93 MG/DL (0.55-1.30); GLOMERULAR FILTRATION RATE 61.4 (>32); LDL CHOLESTEROL 49.3 MG/DL (<100); NON-HDL-C 75.3 MG/DL; POTASSIUM SERUM 4.5 MMOL/L (3.5-5.1); SODIUM LEVEL 135 MMOL/L (136-145); TRIGLYCERIDES LEVEL 130 MG/DL (<150)
== END ==
PROVIDERS: ATTEND Internal Medicine
DX: M10.9 Gout, unspecified (principal); I10 Essential (primary) hypertension; Z79.899 Other long term (current) drug therapy

== ENCOUNTER → 2024-11-16 | Outpatient (REF) | payer MEDICARE | PROVIDERS: ATTEND Physician Assistant | DX: R05.9 Cough, unspecified (principal); R50.9 Fever, unspecified ==

== ENCOUNTER → 2024-11-16 | Outpatient (REF) | payer MEDICARE | LOC: M LAB REF 13:37 | PROVIDERS: ATTEND Internal Medicine | DX: Z53.9 Procedure and treatment not carried out, unspecified reason (principal) ==

== ENCOUNTER → 2024-11-18 | Outpatient (REF) | payer MEDICARE ==
[2024-11-18 11:01] LABS: PLATELET COUNT, AUTOMATED 250 10^3/uL (150-450)
[2024-11-18 11:22] LABS: CALCIUM LEVEL 9.3 MG/DL (8.3-10.6); CARBON DIOXIDE LEVEL 27.0 MMOL/L (20-31); CHLORIDE LEVEL 95.0 MMOL/L (98-107); CREATININE FOR GFR 0.96 MG/DL (0.55-1.30); GLOMERULAR FILTRATION RATE 59.1 (>32); POTASSIUM SERUM 4.1 MMOL/L (3.5-5.1); SODIUM LEVEL 135.0 MMOL/L (136-145)
== END ==
PROVIDERS: ATTEND Internal Medicine
DX: R09.89 Other specified symptoms and signs involving the circulatory and respiratory systems (principal); R05.9 Cough, unspecified

== ENCOUNTER → 2024-11-18 | Outpatient (REF) | payer MEDICARE | PROVIDERS: ATTEND Physician Assistant | DX: R09.89 Other specified symptoms and signs involving the circulatory and respiratory systems (principal) ==

== ENCOUNTER → 2024-11-29 | Outpatient (CLI) | payer MEDICARE | LOC: M RAD 13:55 | PROVIDERS: ATTEND Physician Assistant | DX: M79.662 Pain in left lower leg (principal); R60.0 Localized edema ==

== ENCOUNTER → 2024-12-06 | Outpatient (REF) | payer MEDICARE ==
[2024-12-06 08:56] LABS: BASO # 0.1 10^3/uL (0.0-0.2); BASO % 0.6 % (0.0-1.0); EOS # 0.2 10^3/uL (0.0-0.5); EOS % 3.1 % (0.0-3.0); LYMPH # 1.7 10^3/uL (1.5-5.0); LYMPH % 22.3 % (24.0-44.0); MONO # 0.7 10^3/uL (0.0-0.8); MONO % 8.7 % (2.0-8.0); NEUTROPHILS # 5.1 10^3/uL (1.5-8.5); NEUTROPHILS % 64.9 % (36.0-66.0); PLATELET COUNT, AUTOMATED 241 10^3/uL (150-450)
[2024-12-06 09:22] LABS: CALCIUM LEVEL 8.7 MG/DL (8.3-10.6); CARBON DIOXIDE LEVEL 29.0 MMOL/L (20-31); CHLORIDE LEVEL 96.0 MMOL/L (98-107); CREATININE FOR GFR 0.85 MG/DL (0.55-1.30); GLOMERULAR FILTRATION RATE 68.4 (>32); PHOSPHORUS LEVEL 3.4 MG/DL (2.4-5.1); POTASSIUM SERUM 4.5 MMOL/L (3.5-5.1); SODIUM LEVEL 134.0 MMOL/L (136-145)
== END ==
PROVIDERS: ATTEND Internal Medicine
DX: N18.32 Chronic kidney disease, stage 3b (principal); D63.1 Anemia in chronic kidney disease; M1A.30X0 Chronic gout due to renal impairment, unspecified site, without tophus (tophi)

== ENCOUNTER → 2025-01-13 | Outpatient (REF) | payer MEDICARE ==
[~2025-01-13] MED LIST changes: -COLC0.6T47 PO; +COLC0.6T53 PO; +METH-1100 PO; -METH-855 PO
[2025-01-13 12:53] LABS: PLATELET COUNT, AUTOMATED 241 10^3/uL (150-450)
[2025-01-13 13:17] LABS: CALCIUM LEVEL 9.4 MG/DL (8.3-10.6); CARBON DIOXIDE LEVEL 31.0 MMOL/L (20-31); CHLORIDE LEVEL 96.0 MMOL/L (98-107); CREATININE FOR GFR 0.93 MG/DL (0.55-1.30); GLOMERULAR FILTRATION RATE 61.4 (>32); POTASSIUM SERUM 4.7 MMOL/L (3.5-5.1); SODIUM LEVEL 134.0 MMOL/L (136-145)
== END ==
PROVIDERS: ATTEND Internal Medicine
DX: N18.9 Chronic kidney disease, unspecified (principal)

== ENCOUNTER 2025-02-07 09:14 | Emergency (ER) | payer MEDICARE ==
[~2025-02-07] VITALS: Ht 165.1 cm; Wt 85.6 kg
[2025-02-07] MEDS: NS (Normal Saline) 0.9% 1,000 ML IV ONE ×2 (09:45→10:23)
[2025-02-07 09:50] LABS: BASO # 0.1 10^3/uL (0.0-0.2); BASO % 0.3 % (0.0-1.0); EOS # 0.0 10^3/uL (0.0-0.5); EOS % 0.1 % (0.0-3.0); LYMPH # 1.7 10^3/uL (1.5-5.0); LYMPH % 10.3 % (24.0-44.0); MONO # 1.5 10^3/uL (0.0-0.8); MONO % 9.0 % (2.0-8.0); NEUTROPHILS # 12.9 10^3/uL (1.5-8.5); NEUTROPHILS % 79.9 % (36.0-66.0); PLATELET COUNT, AUTOMATED 243 10^3/uL (150-450)
[2025-02-07] MEDS: ACETAMINOPHEN *IV* 1,000 MG in IV 1 EA IV ONE (10:05)
[2025-02-07 10:23] LABS: ALT/SGPT 117.0 U/L (7.0-40); AST/SGOT 439.0 U/L (<34); CALCIUM LEVEL 8.8 MG/DL (8.3-10.6); CARBON DIOXIDE LEVEL 26.0 MMOL/L (20-31); CHLORIDE LEVEL 94.0 MMOL/L (98-107); CREATININE FOR GFR 1.13 MG/DL (0.55-1.30); GLOMERULAR FILTRATION RATE 48.6 (>32); POTASSIUM SERUM 5.0 MMOL/L (3.5-5.1); SODIUM LEVEL 130.0 MMOL/L (136-145)
[2025-02-07 10:35] LABS: APPEARANCE, URINE MANUAL CLEAR (CLEAR); COLOR, URINE MANUAL AMBER (YELLOW)
[2025-02-07 10:37] LABS: GLUCOSE, URINE (UA) MANUAL NEGATIVE (NEGATIVE); KETONE, URINE MANUAL NEGATIVE (NEGATIVE); PH,URINE MAN 7.0 UNITS (5.0 - 7.0); PROTEIN, URINE MANUAL 1+ mg/dL (NEGATIVE); SPECIFIC GRAVITY,URINE MANUAL 1.005 (1.002-1.035)
[2025-02-07 10:38] LABS: BILIRUBIN, URINE MANUAL NEGATIVE (NEGATIVE); BLOOD URINE MANUAL POSITIVE (NEGATIVE); LEUKOCYTE ESTERASE, URINE MAN POSITIVE (NEGATIVE); NITRITE, URINE MANUAL NEGATIVE (NEGATIVE); UROBILINOGEN, URINE MANUAL NORMAL (NORMAL)
[2025-02-07] MEDS: LevoFLOXacin IV 750 MG in IV 1 EA IV ONE (10:47)
[2025-02-07 11:06] LABS: AMORPHOUS SEDIMENT, URINE MOD AMOUNT (NEGATIVE); BACTERIA, URINE LARGE AMOUNT; HYALINE CAST, URINE NONE SEEN /lpf (0-1); MUCUS, URINE SMALL AMOUNT (NEGATIVE); RBC, URINE 0-1 /hpf (0-3); SQUAMOUS EPITHELIAL CELL URINE SMALL AMOUNT /hpf (SMALL AMT)
[2025-02-07 18:59] LABS: BASO # 0.0 10^3/uL (0.0-0.2); BASO % 0.2 % (0.0-1.0); EOS # 0.2 10^3/uL (0.0-0.5); EOS % 1.4 % (0.0-3.0); LYMPH # 1.5 10^3/uL (1.5-5.0); LYMPH % 14.7 % (24.0-44.0); MONO # 1.3 10^3/uL (0.0-0.8); MONO % 12.7 % (2.0-8.0); NEUTROPHILS # 7.3 10^3/uL (1.5-8.5); NEUTROPHILS % 70.5 % (36.0-66.0)
[2025-02-07 19:33] LABS: ALT/SGPT 251.0 U/L (7.0-40); AST/SGOT 244.0 U/L (<34)
[2025-02-08] MEDS: GABAPENTIN 300 MG CAP PO ONE (03:16)
[2025-02-08] MEDS: traZODone 50 MG TAB PO ONE (03:17)
[2025-02-08] MEDS: PERCOCET 5MG/325MG TAB PO ONE (03:17)
[2025-02-08] MEDS: cefTRIAXone SOD 2 GM in DEXTROSE 5% (D5W) ADV/MINI-BAG 50 ML IV ONE (08:36)
[2025-02-08] MEDS: metroNIDAZOLE 500 MG in IV 1 EA IV ONE (08:44)
[2025-02-08] MEDS ORDERED: FERR32TA PO (11:32)
[2025-02-08] MEDS ORDERED: FLUTISP (11:32)
[2025-02-08] MEDS ORDERED: BISA10SU27 PR (11:32)
[2025-02-08] MEDS ORDERED: MELA5TAB58 PO (11:32)
[2025-02-08] MEDS ORDERED: POTA-298 PO (11:32)
[2025-02-08] MEDS ORDERED: ACET-897 PO (11:32)
[2025-02-08] MEDS ORDERED: AQUAPHOR OINTMENT TOP (11:32)
[2025-02-08] MEDS ORDERED: SENN-122 PO (11:32)
[2025-02-08] MEDS ORDERED: HOME MED LIST COMPLETE! XX SCH (11:35)
[2025-02-08] MEDS: ACETAMINOPHEN *IV* 1,000 MG in IV 1 EA IV ONE (12:12)
[2025-02-08 12:38] VITALS: BP 153/68
[2025-02-08] MEDS: METOPROLOL SUCC. 25 MG *XL* TAB PO ONE (12:38)
[2025-02-08] MEDS: CARBIDOPA/LEVODOPA 25 MG/100 MG PO SCH (12:53)
[2025-02-08] MEDS ORDERED: CARBIDOPA/LEVODOPA 25 MG/100 MG PO SCH (13:00)
[2025-02-08 13:45] VITALS: BP 136/63; TEMP 97; O2SAT 97
[2025-02-08] MEDS ORDERED: metroNIDAZOLE 500 MG in IV 1 EA IV SCH (17:00)
== END 2025-02-08 13:43 | disposition short-term general hospital (02) ==
LOC: M ED 09:14
DX: K80.50 Calculus of bile duct without cholangitis or cholecystitis without obstruction (principal); I45.10 Unspecified right bundle-branch block; I48.91 Unspecified atrial fibrillation; N18.30 Chronic kidney disease, stage 3 unspecified; Z88.5 Allergy status to narcotic agent; Z88.8 Allergy status to other drugs, medicaments and biological substances; Z91.040 Latex allergy status; Z91.041 Radiographic dye allergy status; Z79.1 Long term (current) use of non-steroidal anti-inflammatories (NSAID); Z79.51 Long term (current) use of inhaled steroids; Z79.01 Long term (current) use of anticoagulants; Z79.899 Other long term (current) drug therapy
CPT/HCPCS: 71045; 74176; 74181; 80053; 80076; 81000; 83605; 84145; 85025; 87040; 87077; 87088; 87154; 87186; 87486; 87581; 87633; 87798; 93005; 96365; 96367; 96375; 96376; 99285; J0131; J0696; J1836; J1956

== ENCOUNTER → 2025-03-25 | Outpatient (REF) | payer MEDICARE ==
[~2025-03-25] MED LIST changes: +AQUAPHOR OINTMENT TOP; +FLUTISP; +MELA5TAB58 PO; +POTA-298 PO; +SENN-122 PO
== END ==
PROVIDERS: ATTEND Physician Assistant
DX: M25.572 Pain in left ankle and joints of left foot (principal)

== ENCOUNTER → 2025-04-09 | Outpatient (REF) | payer MEDICARE ==
[~2025-04-09] MED LIST changes: +ACYC30OI TOP; -ACYC5OIN TOP
[2025-04-09 12:58] LABS: PLATELET COUNT, AUTOMATED 247 10^3/uL (150-450)
[2025-04-09 13:25] LABS: CALCIUM LEVEL 9.1 MG/DL (8.3-10.6); CARBON DIOXIDE LEVEL 30.0 MMOL/L (20-31); CHLORIDE LEVEL 100.0 MMOL/L (98-107); CREATININE FOR GFR 0.85 MG/DL (0.55-1.30); GLOMERULAR FILTRATION RATE 68.4 (>32); POTASSIUM SERUM 4.6 MMOL/L (3.5-5.1); SODIUM LEVEL 137.0 MMOL/L (136-145)
== END ==
PROVIDERS: ATTEND Internal Medicine
DX: Z79.899 Other long term (current) drug therapy (principal)